=== PATIENT | female | born 1980 | race Caucasian/White ===

== ENCOUNTER 2017-05-31 19:04 | Inpatient (IN) | payer BC ==
[2017-05-31] MEDS ORDERED: Ondansetron 4 MG/2 ML SDV IV ONE (19:19)
[2017-05-31] MEDS ORDERED: Sodium Chloride 0.9% 1,000 ML IV ONE (19:19)
--- NOTE | 2017-05-31 19:36 | EDM.PDOC ---
ED HPI GENERAL MEDICAL PROBLEM - General Chief Complaint: General Stated Complaint: CELULITTUS, DEHYDRATED Time Seen by Provider: 05/31/17 19:20 Source of Information: Reports: Patient History Limitations: Reports: No Limitations - History of Present Illness INITIAL COMMENTS - FREE TEXT/NARRATIVE: This 37 yo female patient reports to the ED with cellulitis on her buttocks and 2 days of nausea. The patient has a history of cellulitis in her lower extremities (normally treated with IV Vanco). The patient started to notice the cellulitis yesterday. The patient started feeling nauseated on Thursday and has not been able to eat or drink much. The patient reports she ate a piece of toast today and has been eating popsicles over the weekend. The patient has not taken anything that improved her symptoms. Onset: Gradual Onset Date: 05/29/17 Duration: Day(s):, Constant Location: Reports: Lower Extremity, Left, Lower Extremity, Right, Other Quality: Reports: Ache, Dull Severity: Moderate Improves with: Reports: None Worsens with: Reports: None Associated Symptoms: Reports: No Other Symptoms - Related Data Allergies Allergy/AdvReac Type Severity Reaction Status Date / Time adhesive Allergy Intermediate Hives Verified 05/31/17 19:18 hydrocodone Allergy Mild Nausea and Verified 05/31/17 19:18 Vomiting cephalexin monohydrate Allergy Hives Verified 05/31/17 19:18 [From Keflex] erythromycin base AdvReac Severe Nausea and Verified 05/31/17 19:18 [Erythromycin Base] Vomiting Home Meds: Home Meds Acetaminophen 1,000 mg PO Q12HR PRN 01/11/15 [History] Furosemide [Lasix] 40 mg PO DAILY 01/11/15 [History] Spironolactone 50 mg PO BID 02/12/16 [History] Venlafaxine [Effexor XR] 37.5 mg PO DAILY 02/12/16 [History] diphenhydrAMINE [Benadryl] 25 mg PO Q6HR PRN 04/09/16 [History] Ergocalciferol (Vitamin D2) [Vitamin D2] 50,000 units PO .[id number] 10/22/16 [ History] Past Medical History HEENT History: Reports: Impaired Vision Cardiovascular History: Reports: Blood Clots/VTE/DVT, Hypertension, Other (See Below) Other Cardiovascular History: edema BLE Respiratory History: Reports: Sleep Apnea Gastrointestinal History: Reports: Cirrhosis, Other (See Below) Other Gastrointestinal History: Non-alcoholic fatty liver disease, PORTAL HYPERTENSION Genitourinary History: Reports: Acute Renal Failure WOODS BOSS History: Reports: Endometriosis, Other (See Below) Other OB/BYN History: PRE CANCEROUS CERVICAL CELLS, RESULTED IN PARTIAL HYSTERECTOMY Musculoskeletal History: Reports: None Neurological History: Reports: None Psychiatric History: Reports: Anxiety, Depression Endocrine/Metabolic History: Reports: Obesity/BMI 30+ Hematologic History: Reports: B12 Deficiency, Blood Transfusion(s), Idiopathic Thrombocytopenia, Other (See Below) Other Hematologic History: VIT D DEFICIENCY,low platlets count Immunologic History: Reports: None Oncologic (Cancer) History: Reports: Other (See Below) Other Oncologic History: PRECANCEROUS CELLS UTERINE Dermatologic History: Reports: Chronic Cellulitis, Psoriasis Other Dermatologic History: RLE CELLULITIS - Infectious Disease History Infectious Disease History: Reports: Chicken Pox - Past Surgical History GI Surgical History: Reports: Bariatric Procedure, Colonoscopy, EGD Oncologic Surgical History: Reports: Other (See Below) Social & Family History - Family History Family Medical History: Noncontributory Cardiac: Respiratory: GI: Reports: Other (See Below) Neurological: Psychiatric: Hematologic: - Tobacco Use Smoking Status *Q: Never Smoker Years of Tobacco use: 1 Packs/Tins Daily: 0.1 Used Tobacco, but Quit: No Second Hand Smoke Exposure: No - Caffeine Use Caffeine Use: Reports: None - Alcohol Use Days Per Week of Alcohol Use: 0 - Recreational Drug Use Recreational Drug Use: No Drug Use in Last 12 Months: No ED ROS GENERAL - Review of Systems Review Of Systems: ROS reveals no pertinent complaints other than HPI. ED EXAM, GENERAL - Physical Exam Exam: See Below Exam Limited By: No Limitations General Appearance: Alert, Moderate Distress, Obese (morbid obesity) Eye Exam: Bilateral Eye: EOMI, Normal Inspection, PERRL Ears: Normal External Exam, Normal Canal, Hearing Grossly Normal, Normal TMs Nose: Normal Inspection, Normal Mucosa, No Blood Throat/Mouth: Normal Inspection, Normal Lips, Normal Teeth, Normal Gums, Normal Oropharynx, Normal Voice, No Airway Compromise Head: Atraumatic, Normocephalic Neck: Normal Inspection, Supple, Non-Tender, Full Range of Motion Respiratory/Chest: No Respiratory Distress, Lungs Clear, Normal Breath Sounds, No Accessory Muscle Use, Chest Non-Tender Cardiovascular: Normal Peripheral Pulses, Regular Rate, Rhythm, No Edema, No Gallop, No JVD, No Murmur, No Rub GI/Abdominal: Normal Bowel Sounds, Soft, Non-Tender, No Organomegaly, No Distention, No Abnormal Bruit, No Mass, Pelvis Stable (Female) Exam: Deferred Rectal (Female) Exam: Deferred Back Exam: Normal Inspection, Full Range of Motion, NT Extremities: Increased Warmth (bilateral buttocks), Redness Neurological: Alert, Oriented, CN II-XII Intact, Normal Cognition, Normal Gait, Normal Reflexes, No Motor/Sensory Deficits Psychiatric: Normal Affect, Normal Mood Skin Exam: Erythema, Increased Warmth, Rash Lymphatic: No Adenopathy Course - Vital Signs Last Recorded V/S: Last Vital Signs Temp 37.2 C 05/31/17 19:19 Pulse 101 H 05/31/17 19:19 Resp 18 05/31/17 19:19 BP 162/80 H 05/31/17 19:19 Pulse Ox 96 05/31/17 19:19 - Orders/Labs/Meds Orders: Active Orders 24 hr Category Date Time Status CULTURE BLOOD [BC] Stat Lab 05/31/17 19:25 Received CULTURE BLOOD [BC] Stat Lab 05/31/17 19:28 Results UA W/MICROSCOPIC [URIN] Stat Lab 05/31/17 19:18 Uncollected Sodium Chloride 0.9% [Normal Saline] 1,000 ml Med 05/31/17 19:19 Active IV .BOLUS Vancomycin 2 gm Med 05/31/17 20:00 Active Sodium Chloride 0.9% [Normal Saline] 500 ml IV ONETIME Blood Culture x2 Reflex Set [OM.PC] Stat Oth 05/31/17 19:18 Ordered Medication Orders Sodium Chloride (Normal Saline) 1,000 mls @ 999 mls/hr IV .BOLUS ONE Stop: 05/31/17 20:19 Last Admin: 05/31/17 19:33 Dose: 999 mls/hr Vancomycin HCl 2 gm/ Sodium (Chloride) 500 mls @ 334 mls/hr IV ONETIME ONE Stop: 05/31/17 21:29 Labs: Laboratory Tests 05/31/17 05/31/17 05/31/17 Range/Units 19:25 19:25 19:25 WBC 6.7 (5.0-10.0) 10^3/uL RBC 4.41 (4.2-5.4) 10^6/uL Hgb 14.7 (12.0-16.0) g/dL Hct 40.7 (37.0-47.0) % MCV 92.3 (80-100) fL MCH 33.3 (27.0-34.0) pg MCHC 36.1 H (33.0-35.0) g/dL Plt Count 26 L* (150-450) 10^3/uL Neut % (Auto) 82.9 H (42.2-75.2) % Lymph % (Auto) 5.3 L (20.5-50.1) % [place] % (Auto) 11.4 H (2-8) % Eos % (Auto) 0.2 L (1.0-3.0) % Baso % (Auto) 0.2 (0.0-1.0) % Sodium 131 L (135-145) mmol/L Potassium 3.4 L (3.6-5.0) mmol/L Chloride 98 L (101-111) mmol/L Carbon Dioxide 24.0 (21.0-31.0) mmol/L Anion Gap 12.4 BUN 8 (7-18) mg/dL Creatinine 0.7 (0.6-1.3) mg/dL Est Cr Clr Drug Dosing TNP Estimated GFR (MDRD) > 60 BUN/Creatinine Ratio 11.42 Glucose 187 H (74-105) mg/dL Lactic Acid 2.8 H (0.5-2.2) mmol/L Calcium 9.3 (8.4-10.2) mg/dl Total Bilirubin 4.2 H (0.2-1.0) mg/dL AST 47 H (10-42) IU/L ALT 27 (10-60) IU/L Alkaline Phosphatase 79 (42-121) IU/L Total Protein 6.4 L (6.7-8.2) g/dl Albumin 3.0 L (3.2-5.5) g/dl Globulin 3.4 Albumin/Globulin Ratio 0.88 Meds: Medications Generic Name Dose Route Start Last Admin Trade Name Freq PRN Reason Stop Dose Admin Sodium Chloride 1,000 mls @ 999 mls/hr 05/31/17 19:19 05/31/17 19:33 Normal Saline IV 05/31/17 20:19 999 mls/hr .BOLUS ONE Administration Vancomycin HCl 2 gm/ Sodium 500 mls @ 334 mls/hr 05/31/17 20:00 Chloride IV 05/31/17 21:29 ONETIME ONE Discontinued Medications Generic Name Dose Route Start Last Admin Trade Name Sravanq PRN Reason Stop Dose Admin Ondansetron HCl 4 mg 05/31/17 19:19 05/31/17 19:33 Zofran IV 05/31/17 19:20 4 mg ONETIME ONE Administration Departure - Departure Time of Disposition: 20:09 Disposition: Admitted As Inpatient 65 Condition: Fair Clinical Impression: Cellulitis of buttock - Discharge Information Care Plan Goals: Discussed the examination, history, labs and current treatments with Dr. Joaquin. Dr. Joaquin accepted the patient for continued evaluation and further management as an inpatient at [facility]. - My Orders Last 24 Hours: My Active Orders 05/31/17 19:18 UA W/MICROSCOPIC [URIN] Stat Blood Culture x2 Reflex Set [OM.PC] Stat 05/31/17 19:19 Sodium Chloride 0.9% [Normal Saline] 1,000 ml IV .BOLUS 05/31/17 19:25 CULTURE BLOOD [BC] Stat 05/31/17 19:28 CULTURE BLOOD [BC] Stat 05/31/17 20:00 Vancomycin 2 gm Sodium Chloride 0.9% [Normal Saline] 500 ml IV ONETIME - Assessment/Plan Last 24 Hours: My Active Orders 05/31/17 19:18 UA W/MICROSCOPIC [URIN] Stat Blood Culture x2 Reflex Set [OM.PC] Stat 05/31/17 19:19 Sodium Chloride 0.9% [Normal Saline] 1,000 ml IV .BOLUS 05/31/17 19:25 CULTURE BLOOD [BC] Stat 05/31/17 19:28 CULTURE BLOOD [BC] Stat 05/31/17 20:00 Vancomycin 2 gm Sodium Chloride 0.9% [Normal Saline] 500 ml IV ONETIME
[2017-05-31 19:53] LABS: CHLORIDE,CL 98 mmol/L (101-111); SODIUM,NA 131 mmol/L (135-145)
[2017-05-31] MEDS ORDERED: Vancomycin 2 GM in Sodium Chloride 0.9% 500 ML IV ONE (20:00)
[2017-05-31] MEDS ORDERED: Potassium Chloride 10 MEQ Tab.ER PO ONE (20:40)
[2017-05-31] MEDS ORDERED: Ondansetron 4 MG Tab.DIS PO PRN (20:47)
[2017-05-31] MEDS ORDERED: Ibuprofen 200 MG Tab PO PRN ×2 (20:47→20:51)
[2017-05-31] MEDS ORDERED: Acetaminophen 325 MG Tab PO PRN (20:47)
[2017-05-31] MEDS ORDERED: Promethazine 25 MG Tab PO PRN (20:51)
[2017-05-31] MEDS ORDERED: Metoclopramide 10 MG/2 ML SDV IVPUSH PRN (20:52)
--- NOTE | 2017-05-31 20:58 | PCM.HP ---
H&P History of Present Illness - General Date of Service: 05/31/17 Admit Problem/Dx: Admission Diagnosis/Problem Admission Diagnosis/Problem Cellulitis Source of Information: Patient - History of Present Illness Initial Comments - Free Text/Narative: 37 yo female with h/o morbid oesty, s/p Lapband, BARNES, thrombocytopenia and leukopenia. she has a history of recurrent cellulitis that has been difficult to treat in the past. The treatment required clindamycin and vancomycin initially administered as IV. She presented with 1 day history of nausea, up to 102-103. She noticed warmth and mild to moderate tenderness on the buttock and lower back area. She cannot recall a significant injury. The fever has been associated with nausea. No apparent bleeding. She has been taking diuretics. She has poor appetite in the past 2 days. No abnormal diarrhea, no abdominal pain. No chest pain or shortness of breath. Bilateral Sacral Pain Score (Numeric/FACES): 5 - Related Data Allergies/Adverse Reactions: Allergies Allergy/AdvReac Type Severity Reaction Status Date / Time adhesive Allergy Intermediate Hives Verified 05/31/17 19:18 hydrocodone Allergy Mild Nausea and Verified 05/31/17 19:18 Vomiting cephalexin monohydrate Allergy Hives Verified 05/31/17 19:18 [From Keflex] erythromycin base AdvReac Severe Nausea and Verified 05/31/17 19:18 [Erythromycin Base] Vomiting Home Medications: Home Meds Furosemide [Lasix] 40 mg PO DAILY 01/11/15 [History] Spironolactone 50 mg PO BID 02/12/16 [History] Venlafaxine [Effexor XR] 37.5 mg PO DAILY 02/12/16 [History] Past Medical History HEENT History: Reports: Impaired Vision Cardiovascular History: Reports: Blood Clots/VTE/DVT, Hypertension, Other (See Below) Other Cardiovascular History: edema BLE Respiratory History: Reports: Sleep Apnea Gastrointestinal History: Reports: Cirrhosis, Other (See Below) Other Gastrointestinal History: Non-alcoholic fatty liver disease, PORTAL HYPERTENSION Genitourinary History: Reports: Acute Renal Failure DIE FITTER History: Reports: Endometriosis, Other (See Below) Other OB/BYN History: PRE CANCEROUS CERVICAL CELLS, RESULTED IN PARTIAL HYSTERECTOMY Musculoskeletal History: Reports: None Neurological History: Reports: None Psychiatric History: Reports: Anxiety, Depression Endocrine/Metabolic History: Reports: Obesity/BMI 30+ Hematologic History: Reports: B12 Deficiency, Blood Transfusion(s), Idiopathic Thrombocytopenia, Other (See Below) Other Hematologic History: VIT D DEFICIENCY,low platlets count Immunologic History: Reports: None Oncologic (Cancer) History: Reports: Other (See Below) Other Oncologic History: PRECANCEROUS CELLS UTERINE Dermatologic History: Reports: Chronic Cellulitis, Psoriasis Other Dermatologic History: RLE CELLULITIS - Infectious Disease History Infectious Disease History: Reports: Chicken Pox - Past Surgical History GI Surgical History: Reports: Bariatric Procedure, Colonoscopy, EGD Oncologic Surgical History: Reports: Other (See Below) Social & Family History - Family History Family Medical History: Noncontributory Cardiac: Respiratory: GI: Reports: Other (See Below) Neurological: Psychiatric: Hematologic: - Tobacco Use Smoking Status *Q: Never Smoker Years of Tobacco use: 1 Packs/Tins Daily: 0.1 Used Tobacco, but Quit: No Second Hand Smoke Exposure: No - Caffeine Use Caffeine Use: Reports: None - Alcohol Use Days Per Week of Alcohol Use: 0 - Recreational Drug Use Recreational Drug Use: No Drug Use in Last 12 Months: No H&P Review of Systems - Review of Systems: Review Of Systems: See Below General: Reports: Fever, Chills HEENT: Denies: Headaches Pulmonary: Denies: Shortness of Breath, Wheezing Cardiovascular: Denies: Chest Pain, Palpitations Gastrointestinal: Denies: Abdominal Pain, Diarrhea Genitourinary: Denies: Dysuria Psychiatric: Denies: Confusion Exam - Exam Exam: See Below - Vital Signs Vital Signs: Last Vital Signs Temp 37.2 C 05/31/17 19:19 Pulse 101 H 05/31/17 19:19 Resp 18 05/31/17 19:19 BP 162/80 H 05/31/17 19:19 Pulse Ox 96 05/31/17 19:19 Weight: 158.757 kg - Exam Quality Assessment: No: Supplemental Oxygen General: Alert, Oriented Neck: Supple Lungs: Clear to Auscultation, Normal Respiratory Effort Cardiovascular: Regular Rate, Regular Rhythm Abdomen: Normal Bowel Sounds, Soft, Other (Morbidly obese) Skin: Warm, Other (Significant erythema of bilateral buttock and lower back with induration. No apparent abscess.) Neuro Extensive - Mental Status: Alert, Oriented x3, Normal Mood/Affect Psychiatric: Alert, Normal Affect, Normal Mood - Patient Data Result Diagrams: 05/31/17 19:25 05/31/17 19:25 *Q Meaningful Use (ADM) - VTE *Q VTE Criteria *Q: - Stroke *Q Stroke Criteria *Q: - AMI *Q AMI Criteria *Q: - Problem List (1) Cellulitis of buttock SNOMED Code(s): 84741768 ICD Code: L03.317 - CELLULITIS OF BUTTOCK Status: Acute Current Visit: Yes (2) Thrombocytopenia SNOMED Code(s): 648657888 ICD Code: D69.6 - THROMBOCYTOPENIA, UNSPECIFIED Status: Acute Current Visit: No (3) Morbid obesity SNOMED Code(s): 207744644 ICD Code: E66.01 - MORBID (SEVERE) OBESITY DUE TO EXCESS CALORIES Status: Chronic Priority: Medium Current Visit: No Problem List Initiated/Reviewed/Updated: Yes Orders Last 24hrs: Active Orders 24 hr Category Date Time Status Patient Status [ADT] Routine ADT 05/31/17 20:47 Ordered Antiembolic Devices [RC] PER UNIT ROUTINE Care 05/31/17 20:48 Ordered Blood Glucose Check, Bedside [RC] QIDACANDBED Care 05/31/17 20:47 Ordered Oxygen Therapy [RC] PRN Care 05/31/17 20:47 Ordered Peripheral IV Care [RC] . DIRECTED Care 05/31/17 20:48 Ordered Up With Assistance [RC] ASDIRECTED Care 05/31/17 20:47 Ordered VTE/DVT Education [RC] PER UNIT ROUTINE Care 05/31/17 20:47 Ordered Vital Signs [RC] Q4H Care 05/31/17 20:47 Ordered Consistent Carbohydrate Diet [DIET] Diet 05/31/17 Breakfast Ordered BASIC METABOLIC PANEL,BMP [CHEM] AM Lab 06/01/17 05:15 Ordered CBC WITH AUTO DIFF [HEME] AM Lab 06/01/17 05:15 Ordered LACTIC ACID [CHEM] Timed Lab 05/31/17 23:00 Ordered Acetaminophen [Tylenol] Med 05/31/17 20:47 Ordered 650 mg PO Q6H PRN Clindamycin Phosphate [Cleocin] 600 mg Med 05/31/17 20:45 Ordered Sodium Chloride 0.9% [Normal Saline] 100 ml IV Q8H Furosemide [Lasix] Med 06/01/17 09:00 Ordered 40 mg PO DAILY Ibuprofen [Motrin] Med 05/31/17 20:51 Ordered 400 mg PO Q6H PRN Insulin Aspart [NovoLOG] Med 05/31/17 21:00 Ordered See Protocol SUBCUT .QIDHS Metoclopramide [Reglan] Med 05/31/17 20:52 Ordered 10 mg IVPUSH Q6H PRN Ondansetron [Zofran ODT] Med 05/31/17 20:47 Ordered 4 mg PO Q4H PRN Pantoprazole [ProTONIX] Med 05/31/17 21:00 Ordered 40 mg PO BEDTIME Promethazine [Phenergan] Med 05/31/17 20:51 Ordered 25 mg PO Q6H PRN Sodium Chloride 0.9% [Normal Saline] 1,000 ml Med 05/31/17 20:45 Ordered IV ASDIRECTED Sodium Chloride 0.9% [Saline Flush] Med 05/31/17 20:47 Ordered 10 ml FLUSH ASDIRECTED PRN Spironolactone [Aldactone] Med 06/01/17 09:00 Ordered 50 mg PO BID Vancomycin Pharmacy to Dose [Pharmacy to Dose - Med 05/31/17 20:45 Ordered Vancomycin] 1 dose .XX ASDIRECTED Venlafaxine [Effexor XR] Med 06/01/17 09:00 Ordered 37.5 mg PO DAILY oxyCODONE Med 05/31/17 20:47 Ordered 5 mg PO Q4H PRN Peripheral IV Insertion Adult [OM.PC] Routine Oth 05/31/17 20:47 Ordered Sequential Compression Device [OM.PC] Per Unit Routine Oth 05/31/17 20:48 Ordered Resuscitation Status Routine Resus Stat 05/31/17 20:47 Ordered Medication Orders Acetaminophen (Tylenol) 650 mg PO Q6H PRN PRN Reason: Pain (Mild 1-3)/fever Furosemide (Lasix) 40 mg PO DAILY ALEXANDRA Vancomycin HCl 2 gm/ Sodium (Chloride) 500 mls @ 334 mls/hr IV ONETIME ONE Stop: 05/31/17 21:29 Last Admin: 05/31/17 20:14 Dose: 334 mls/hr Sodium Chloride (Normal Saline) 1,000 mls @ 150 mls/hr IV ASDIRECTED ALEXANDRA Clindamycin Phosphate 600 mg/ (Sodium Chloride) 104 mls @ 200 mls/hr IV Q8H ALEXANDRA Ibuprofen (Motrin) 400 mg PO Q6H PRN PRN Reason: Fever Ondansetron HCl (Zofran Odt) 4 mg PO Q4H PRN PRN Reason: nausea, able to take PO Oxycodone HCl (Oxycodone) 5 mg PO Q4H PRN PRN Reason: Pain (moderate 4-6) Pantoprazole Sodium (Protonix) 40 mg PO BEDTIME [facility] Sodium Chloride (Saline Flush) 10 ml FLUSH ASDIRECTED PRN PRN Reason: Keep Vein Open Spironolactone (Aldactone) 50 mg PO BID [facility] Vancomycin HCl (Pharmacy To Dose - Vancomycin) 1 dose .XX ASDIRECTED ALEXANDRA Venlafaxine HCl (Effexor Xr) 37.5 mg PO DAILY [facility] Assessment/Plan Comment:: 37-year-old lady who is immunocompromised. History of BARNES, thrombocytopenia and leukopenia. cellulitis The patient has history of cellulitis not responding to oral antibiotic. Usually gets good results with clindamycin and IV vancomycin combination. Obtain blood cultures Start IV fluid Start IV clindamycin and IV vancomycin After be conservative with Tylenol and nonsteroidals. Start Protonix for GI prophylaxis with the use of nonsteroidals and thrombocytopenia. Treat nausea and vomiting. Sepsis No severe sepsis, hemodynamically stable. Repeat lactic acid Treat with IV fluids. Hold diuretics today. BARNES with associated thrombocytopenia / leukopenia -baseline plates per pt are int the 30-40 range - Follow platelets in am - cont spironolactone / lasix Morbid Obesity h/o lap band in 2005 increased risk of infections Hyponatremia Mild, will follow with IV fluids Hypokalemia Continue spironolactone and give a dose of by mouth potassium supplement today Hyperglycemia No history of diabetes but has a history of morbid obesity Will follow blood sugars Will need outpatient follow-up DVT prophylaxis We'll be with SCDs Hold anticoagulants given the significant thrombocytopenia Discussed with the ER provider.
[2017-05-31] MEDS ORDERED: Spironolactone 25 MG Tab PO SCH (21:00)
[2017-05-31] MEDS: Pantoprazole 40 MG Tab.CR PO SCH (21:28)
[2017-05-31] MEDS: Insulin Aspart 100 Units/ML 3 ML Pen SUBCUT SCH (21:29)
[2017-05-31] MEDS: Clindamycin Phosphate 600 MG in Sodium Chloride 0.9% 100 ML IV SCH (22:51)
[2017-05-31] MEDS: Sodium Chloride 0.9% 1,000 ML IV SCH (23:41)
[2017-06-01] MEDS: Clindamycin Phosphate 600 MG in Sodium Chloride 0.9% 100 ML IV SCH ×4 (05:22→20:48)
[2017-06-01] MEDS: Vancomycin 1.5 GM in Sodium Chloride 0.9% 500 ML IV SCH ×4 (06:17→22:08)
[2017-06-01 06:56] LABS: CHLORIDE,CL 104 mmol/L (101-111); SODIUM,NA 135 mmol/L (135-145)
[2017-06-01] MEDS: Sodium Chloride 0.9% 1,000 ML IV SCH (07:49)
[2017-06-01] MEDS: Insulin Aspart 100 Units/ML 3 ML Pen SUBCUT SCH ×4 (08:04→21:56)
[2017-06-01] MEDS: Spironolactone 25 MG Tab PO SCH ×2 (08:33→20:52)
[2017-06-01] MEDS: VENLAFAXINE 37.5 MG PO SCH (08:34)
[2017-06-01] MEDS: FUROSEMIDE 20 MG PO SCH (08:34)
[2017-06-01] MEDS ORDERED: Potassium Chloride 10 MEQ Tab.ER PO ONE (09:39)
--- NOTE | 2017-06-01 09:39 | PCM.PN ---
- General Info Date of Service: 06/01/17 Admission Dx/Problem (Free Text): Admission Diagnosis/Problem Admission Diagnosis/Problem Cellulitis Subjective Update: Had fever last night. Improved with Motrin. Redness associated which itching on the back is continued. Feeling nausea but was able to eat breakfast. 1 watery bowel movement. No chest pain, no shortness of breath. Does not like to wear SCDs. - Patient Data Vitals - most recent: Last Vital Signs Temp 36.4 C 06/01/17 07:42 Pulse 91 06/01/17 07:42 Resp 20 06/01/17 07:42 BP 127/80 06/01/17 07:42 Pulse Ox 99 06/01/17 07:42 Weight - most recent: 158.757 kg I&O - last 24 hours: Intake & Output 05/31/17 06/01/17 06/01/17 22:59 06:59 14:59 Intake Total 400 2700 Balance 400 2700 Lab Results last 24 hrs: Laboratory Results - last 24 hr 05/31/17 05/31/17 06/01/17 Range/Units 21:25 23:45 06:15 WBC 7.1 (5.0-10.0) 10^3/uL RBC 4.59 (4.2-5.4) 10^6/uL Hgb 15.1 (12.0-16.0) g/dL Hct 42.5 (37.0-47.0) % MCV 92.6 (80-100) fL MCH 32.9 (27.0-34.0) pg MCHC 35.5 H (33.0-35.0) g/dL Plt Count 28 L* (150-450) 10^3/uL Neut % (Auto) 82.6 H (42.2-75.2) % Lymph % (Auto) 4.7 L (20.5-50.1) % [place] % (Auto) 12.6 H (2-8) % Eos % (Auto) 0.0 L (1.0-3.0) % Baso % (Auto) 0.1 (0.0-1.0) % Sodium (135-145) mmol/L Potassium (3.6-5.0) mmol/L Chloride (101-111) mmol/L Carbon Dioxide (21.0-31.0) mmol/L Anion Gap BUN (7-18) mg/dL Creatinine (0.6-1.3) mg/dL Est Cr Clr Drug Dosing Estimated GFR (MDRD) Glucose (74-105) mg/dL POC Glucose 151 H (70-105) mg/dl Lactic Acid 2.2 (0.5-2.2) mmol/L Calcium (8.4-10.2) mg/dl 06/01/17 06/01/17 Range/Units 06:15 07:47 WBC (5.0-10.0) 10^3/uL RBC (4.2-5.4) 10^6/uL Hgb (12.0-16.0) g/dL Hct (37.0-47.0) % MCV (80-100) fL MCH (27.0-34.0) pg MCHC (33.0-35.0) g/dL Plt Count (150-450) 10^3/uL Neut % (Auto) (42.2-75.2) % Lymph % (Auto) (20.5-50.1) % [place] % (Auto) (2-8) % Eos % (Auto) (1.0-3.0) % Baso % (Auto) (0.0-1.0) % Sodium 135 (135-145) mmol/L Potassium 3.4 L (3.6-5.0) mmol/L Chloride 104 (101-111) mmol/L Carbon Dioxide 24.0 (21.0-31.0) mmol/L Anion Gap 10.4 BUN 11 (7-18) mg/dL Creatinine 0.8 (0.6-1.3) mg/dL Est Cr Clr Drug Dosing TNP Estimated GFR (MDRD) > 60 Glucose 143 H (74-105) mg/dL POC Glucose 122 H (70-105) mg/dl Lactic Acid (0.5-2.2) mmol/L Calcium 9.4 (8.4-10.2) mg/dl Med Orders - Current: Current Medications Acetaminophen (Tylenol) 650 mg PO Q6H PRN PRN Reason: Pain (Mild 1-3)/fever Furosemide (Lasix) 40 mg PO DAILY [facility] Last Admin: 06/01/17 08:34 Dose: 40 mg Sodium Chloride (Normal Saline) 1,000 mls @ 150 mls/hr IV ASDIRECTED [facility] Last Admin: 06/01/17 07:49 Dose: 150 mls/hr Clindamycin Phosphate 600 mg/ (Sodium Chloride) 104 mls @ 200 mls/hr IV Q8H [facility] Last Admin: 06/01/17 05:22 Dose: 200 mls/hr Vancomycin HCl 1.5 gm/ Sodium (Chloride) 500 mls @ 333.333 mls/hr IV Q8H [facility] Last Admin: 06/01/17 06:17 Dose: 200 mls/hr Ibuprofen (Motrin) 400 mg PO Q6H PRN PRN Reason: Fever Last Admin: 05/31/17 23:01 Dose: 400 mg Insulin Aspart (Novolog) 0 unit SUBCUT ACBED [facility] PRN Reason: Protocol Last Admin: 06/01/17 08:04 Dose: Not Given Metoclopramide HCl (Reglan) 10 mg IVPUSH Q6H PRN PRN Reason: Nausea Ondansetron HCl (Zofran Odt) 4 mg PO Q4H PRN PRN Reason: nausea, able to take PO Oxycodone HCl (Oxycodone) 5 mg PO Q4H PRN PRN Reason: Pain (moderate 4-6) Pantoprazole Sodium (Protonix) 40 mg PO BEDTIME [facility] Last Admin: 05/31/17 21:28 Dose: 40 mg Promethazine HCl (Phenergan) 25 mg PO Q6H PRN PRN Reason: Nausea/Vomiting Sodium Chloride (Saline Flush) 10 ml FLUSH ASDIRECTED PRN PRN Reason: Keep Vein Open Spironolactone (Aldactone) 50 mg PO BID [facility] Last Admin: 06/01/17 08:33 Dose: 50 mg Vancomycin HCl (Pharmacy To Dose - Vancomycin) 1 dose .XX ASDIRECTED [facility] Venlafaxine HCl (Effexor Xr) 37.5 mg PO DAILY [facility] Last Admin: 06/01/17 08:34 Dose: 37.5 mg Discontinued Medications Sodium Chloride (Normal Saline) 1,000 mls @ 999 mls/hr IV .BOLUS ONE Stop: 05/31/17 20:19 Last Admin: 05/31/17 19:33 Dose: 999 mls/hr Vancomycin HCl 2 gm/ Sodium (Chloride) 500 mls @ 334 mls/hr IV ONETIME ONE Stop: 05/31/17 21:29 Last Admin: 05/31/17 20:14 Dose: 334 mls/hr Ibuprofen (Motrin) 200 mg PO Q6H PRN PRN Reason: Fever Ondansetron HCl (Zofran) 4 mg IV ONETIME ONE Stop: 05/31/17 19:20 Last Admin: 05/31/17 19:33 Dose: 4 mg Potassium Chloride (Klor-Con 10) 10 meq PO ONETIME ONE Stop: 05/31/17 20:41 Last Admin: 05/31/17 21:27 Dose: 10 meq Spironolactone (Aldactone) 50 mg PO BID [facility]DR[facility] - Exam Quality Assessment: No: supplemental oxygen General: alert, oriented HEENT: Pupils equal, EOMI, Mucous membr. moist/pink Neck: supple Lungs: Clear to auscultation, Normal respiratory effort Cardiovascular: Regular Rate, Regular Rhythm Abdomen: bowel sounds present, soft, no tenderness, no distension, other ( Morbidly obese) Extremities: edema (Trace bilateral lower extremity edema) Skin: warm Wound/Incisions: erythema (Involving bilateral buttock sacral area and lower back) Psy/Mental Status: alert, normal affect - Problem List & Annotations (1) Cellulitis of buttock SNOMED Code(s): 71374148 Code(s): L03.317 - CELLULITIS OF BUTTOCK Status: Acute Current Visit: Yes (2) Thrombocytopenia SNOMED Code(s): 158429477 Code(s): D69.6 - THROMBOCYTOPENIA, UNSPECIFIED Status: Acute Current Visit: No (3) Morbid obesity SNOMED Code(s): 671422660 Code(s): E66.01 - MORBID (SEVERE) OBESITY DUE TO EXCESS CALORIES Status: Chronic Priority: Medium Current Visit: No - Problem List Review Problem List Initiated/Reviewed/Updated: Yes - My Orders Last 24 Hours: My Active Orders 05/31/17 20:45 Sodium Chloride 0.9% [Normal Saline] 1,000 ml IV ASDIRECTED Vancomycin Pharmacy to Dose [Pharmacy to Dose - Vancomycin] 1 dose .XX ASDIRECTED 05/31/17 20:47 Patient Status [ADT] Routine Blood Glucose Check, Bedside [RC] QIDACANDBED Oxygen Therapy [RC] PRN Up With Assistance [RC] ASDIRECTED VTE/DVT Education [RC] PER UNIT ROUTINE Vital Signs [RC] 03,07,11,15,19,23 Acetaminophen [Tylenol] 650 mg PO Q6H PRN Ondansetron [Zofran ODT] 4 mg PO Q4H PRN Sodium Chloride 0.9% [Saline Flush] 10 ml FLUSH ASDIRECTED PRN oxyCODONE 5 mg PO Q4H PRN Peripheral IV Insertion Adult [OM.PC] Routine Resuscitation Status Routine 05/31/17 20:48 Antiembolic Devices [RC] PER UNIT ROUTINE Peripheral IV Care [RC] . DIRECTED Sequential Compression Device [OM.PC] Per Unit Routine 05/31/17 20:51 Ibuprofen [Motrin] 400 mg PO Q6H PRN Promethazine [Phenergan] 25 mg PO Q6H PRN 05/31/17 20:52 Metoclopramide [Reglan] 10 mg IVPUSH Q6H PRN 05/31/17 21:00 Clindamycin Phosphate [Cleocin] 600 mg Sodium Chloride 0.9% [Normal Saline] 100 ml IV Q8H Insulin Aspart [NovoLOG] See Protocol SUBCUT ACBED Pantoprazole [ProTONIX] 40 mg PO BEDTIME 06/01/17 05:00 Vancomycin 1.5 gm Sodium Chloride 0.9% [Normal Saline] 500 ml IV Q8H 06/01/17 09:00 Furosemide [Lasix] 40 mg PO DAILY Spironolactone [Aldactone] 50 mg PO BID Venlafaxine [Effexor XR] 37.5 mg PO DAILY 06/02/17 04:30 VANCOMYCIN TROUGH [CHEM] Timed 06/02/17 05:15 BASIC METABOLIC PANEL,BMP [CHEM] AM CBC WITH AUTO DIFF [HEME] AM - Plan Plan:: 37-year-old lady who is immunocompromised. History of BARNES, thrombocytopenia and leukopenia. cellulitis The patient has history of cellulitis not responding to oral antibiotic. Usually gets good results with clindamycin and IV vancomycin combination. blood cultures: pending stop IV fluid continue IV clindamycin and IV vancomycin Have to be conservative with Tylenol and nonsteroidals. continue Protonix for GI prophylaxis with the use of nonsteroidals and thrombocytopenia. Treat nausea and vomiting. Sepsis No severe sepsis, hemodynamically stable. Repeat lactic acid resolved BARNES with associated thrombocytopenia / leukopenia -baseline plates are in the 30-40 range - Follow platelets in am - cont spironolactone / lasix Morbid Obesity h/o lap band in 2005 increased risk of infections Hyponatremia recheck in AM Hypokalemia Continue spironolactone and give one more dose of by mouth potassium supplement today Hyperglycemia No history of diabetes but has a history of morbid obesity Will follow blood sugars Will need outpatient follow-up DVT prophylaxis Will be with compression stocking Hold anticoagulants given the significant thrombocytopenia
[2017-06-01] MEDS: Sodium Chloride 0.9% 10 ML Syringe FLUSH PRN ×2 (14:40→20:56)
[2017-06-01] MEDS: Pantoprazole 40 MG Tab.CR PO SCH (20:53)
[2017-06-02] MEDS: Clindamycin Phosphate 600 MG in Sodium Chloride 0.9% 100 ML IV SCH ×3 (05:18→20:57)
[2017-06-02] MEDS: Sodium Chloride 0.9% 10 ML Syringe FLUSH PRN ×4 (05:19→22:06)
[2017-06-02 07:01] LABS: CHLORIDE,CL 103 mmol/L (101-111); SODIUM,NA 136 mmol/L (135-145)
[2017-06-02] MEDS: Vancomycin 1.5 GM in Sodium Chloride 0.9% 500 ML IV SCH ×3 (07:30→22:05)
[2017-06-02] MEDS: Insulin Aspart 100 Units/ML 3 ML Pen SUBCUT SCH ×4 (08:54→21:07)
[2017-06-02] MEDS: Spironolactone 25 MG Tab PO SCH ×2 (09:10→09:13)
[2017-06-02] MEDS: FUROSEMIDE 20 MG PO SCH ×2 (09:10→09:13)
[2017-06-02] MEDS: VENLAFAXINE 37.5 MG PO SCH ×2 (09:10→09:13)
--- NOTE | 2017-06-02 10:14 | PCM.PN ---
- General Info Date of Service: 06/02/17 Admission Dx/Problem (Free Text): Admission Diagnosis/Problem Admission Diagnosis/Problem Cellulitis Subjective Update: No more fever. Redness associated which itching on the back is continued but appears improved. She did feel to areas of the tenderness of the skin on both sides of the chest. This is not associated with redness, swelling, and it was above features. Nausea and vomiting has resolved. Tolerating food well. No chest pain, no shortness of breath. Functional Status: Reports: tolerating diet - Review of Systems General: Denies: Fever Pulmonary: Denies: shortness of breath Cardiovascular: Denies: Chest Pain Gastrointestinal: Denies: Abdominal pain Psychiatric: Denies: confusion - Patient Data Vitals - most recent: Last Vital Signs Temp 36.6 C 06/02/17 07:42 Pulse 92 06/02/17 07:42 Resp 20 06/02/17 07:42 BP 133/73 06/02/17 07:42 Pulse Ox 99 06/02/17 07:42 Weight - most recent: 158.757 kg I&O - last 24 hours: Intake & Output 06/01/17 06/02/17 06/02/17 22:59 06:59 14:59 Intake Total 1555 1114 Output Total 1700 175 Balance -145 939 Lab Results last 24 hrs: Laboratory Results - last 24 hr 06/01/17 06/01/17 06/01/17 Range/Units 11:32 16:51 21:15 WBC (5.0-10.0) 10^3/uL RBC (4.2-5.4) 10^6/uL Hgb (12.0-16.0) g/dL Hct (37.0-47.0) % MCV (80-100) fL MCH (27.0-34.0) pg MCHC (33.0-35.0) g/dL Plt Count (150-450) 10^3/uL Neut % (Auto) (42.2-75.2) % Lymph % (Auto) (20.5-50.1) % Carbon % (Auto) (2-8) % Eos % (Auto) (1.0-3.0) % Baso % (Auto) (0.0-1.0) % Add Manual Diff Neutrophils % (Manual) % Band Neutrophils % % Lymphocytes % (Manual) % Monocytes % (Manual) % Myelocytes % Toxic Granulation Platelet Estimate Sodium (135-145) mmol/L Potassium (3.6-5.0) mmol/L Chloride (101-111) mmol/L Carbon Dioxide (21.0-31.0) mmol/L Anion Gap BUN (7-18) mg/dL Creatinine (0.6-1.3) mg/dL Est Cr Clr Drug Dosing Estimated GFR (MDRD) Glucose (74-105) mg/dL POC Glucose 196 H 217 H 144 H (70-105) mg/dl Calcium (8.4-10.2) mg/dl Total Bilirubin (0.2-1.0) mg/dL Direct Bilirubin (0.0-0.2) mg/dL Indirect Bilirubin AST (10-42) IU/L ALT (10-60) IU/L Alkaline Phosphatase (42-121) IU/L Total Protein (6.7-8.2) g/dl Albumin (3.2-5.5) g/dl Globulin Albumin/Globulin Ratio Vancomycin Trough (10-15) ug/ml 06/02/17 06/02/17 06/02/17 Range/Units 05:50 05:50 05:50 WBC 7.6 (5.0-10.0) 10^3/uL RBC 4.61 (4.2-5.4) 10^6/uL Hgb 15.1 (12.0-16.0) g/dL Hct 42.2 (37.0-47.0) % MCV 91.5 (80-100) fL MCH 32.8 (27.0-34.0) pg MCHC 35.8 H (33.0-35.0) g/dL Plt Count 25 L* (150-450) 10^3/uL Neut % (Auto) 76.4 H (42.2-75.2) % Lymph % (Auto) 9.4 L (20.5-50.1) % Carbon % (Auto) 13.6 H (2-8) % Eos % (Auto) 0.5 L (1.0-3.0) % Baso % (Auto) 0.1 (0.0-1.0) % Add Manual Diff Yes Neutrophils % (Manual) 54 % Band Neutrophils % 19 % Lymphocytes % (Manual) 10 % Monocytes % (Manual) 15 % Myelocytes % 2 Toxic Granulation 1+ slight Platelet Estimate Marked dec Sodium 136 (135-145) mmol/L Potassium 3.2 L (3.6-5.0) mmol/L Chloride 103 (101-111) mmol/L Carbon Dioxide 23.0 (21.0-31.0) mmol/L Anion Gap 13.2 BUN 15 (7-18) mg/dL Creatinine 0.9 (0.6-1.3) mg/dL Est Cr Clr Drug Dosing TNP Estimated GFR (MDRD) > 60 Glucose 115 H (74-105) mg/dL POC Glucose (70-105) mg/dl Calcium 9.8 (8.4-10.2) mg/dl Total Bilirubin 4.3 H (0.2-1.0) mg/dL Direct Bilirubin 1.1 H (0.0-0.2) mg/dL Indirect Bilirubin 3.2 AST 48 H (10-42) IU/L ALT 27 (10-60) IU/L Alkaline Phosphatase 106 (42-121) IU/L Total Protein 6.0 L (6.7-8.2) g/dl Albumin 2.7 L (3.2-5.5) g/dl Globulin 3.3 Albumin/Globulin Ratio 0.82 Vancomycin Trough 18.7 H (10-15) ug/ml // Range/Units 07:49 WBC (5.0-10.0) 10^3/uL RBC (4.2-5.4) 10^6/uL Hgb (12.0-16.0) g/dL Hct (37.0-47.0) % MCV (80-100) fL MCH (27.0-34.0) pg MCHC (33.0-35.0) g/dL Plt Count (150-450) 10^3/uL Neut % (Auto) (42.2-75.2) % Lymph % (Auto) (20.5-50.1) % Carbon % (Auto) (2-8) % Eos % (Auto) (1.0-3.0) % Baso % (Auto) (0.0-1.0) % Add Manual Diff Neutrophils % (Manual) % Band Neutrophils % % Lymphocytes % (Manual) % Monocytes % (Manual) % Myelocytes % Toxic Granulation Platelet Estimate Sodium (135-145) mmol/L Potassium (3.6-5.0) mmol/L Chloride (101-111) mmol/L Carbon Dioxide (21.0-31.0) mmol/L Anion Gap BUN (7-18) mg/dL Creatinine (0.6-1.3) mg/dL Est Cr Clr Drug Dosing Estimated GFR (MDRD) Glucose (74-105) mg/dL POC Glucose 126 H (70-105) mg/dl Calcium (8.4-10.2) mg/dl Total Bilirubin (0.2-1.0) mg/dL Direct Bilirubin (0.0-0.2) mg/dL Indirect Bilirubin AST (10-42) IU/L ALT (10-60) IU/L Alkaline Phosphatase (42-121) IU/L Total Protein (6.7-8.2) g/dl Albumin (3.2-5.5) g/dl Globulin Albumin/Globulin Ratio Vancomycin Trough (10-15) ug/ml Med Orders - Current: Current Medications Acetaminophen (Tylenol) 650 mg PO Q6H PRN PRN Reason: Pain (Mild 1-3)/fever Last Admin: 06/01/17 20:55 Dose: 650 mg Furosemide (Lasix) 40 mg PO DAILY [facility] Last Admin: 06/02/17 09:13 Dose: 40 mg Clindamycin Phosphate 600 mg/ (Sodium Chloride) 104 mls @ 200 mls/hr IV Q8H [facility] Last Admin: 06/02/17 05:18 Dose: 200 mls/hr Vancomycin HCl 1.5 gm/ Sodium (Chloride) 500 mls @ 333.333 mls/hr IV Q8H [facility] Last Admin: 06/02/17 07:30 Dose: 333.333 mls/hr Ibuprofen (Motrin) 400 mg PO Q6H PRN PRN Reason: Fever Last Admin: 05/31/17 23:01 Dose: 400 mg Insulin Aspart (Novolog) 0 unit SUBCUT ACBED [facility] PRN Reason: Protocol Last Admin: 06/02/17 08:54 Dose: Not Given Metoclopramide HCl (Reglan) 10 mg IVPUSH Q6H PRN PRN Reason: Nausea Ondansetron HCl (Zofran Odt) 4 mg PO Q4H PRN PRN Reason: nausea, able to take PO Oxycodone HCl (Oxycodone) 5 mg PO Q4H PRN PRN Reason: Pain (moderate 4-6) Pantoprazole Sodium (Protonix) 40 mg PO BEDTIME [facility] Last Admin: 06/01/17 20:53 Dose: 40 mg Promethazine HCl (Phenergan) 25 mg PO Q6H PRN PRN Reason: Nausea/Vomiting Sodium Chloride (Saline Flush) 10 ml FLUSH ASDIRECTED PRN PRN Reason: Keep Vein Open Last Admin: 06/02/17 05:19 Dose: 10 ml Spironolactone (Aldactone) 50 mg PO BID [facility] Last Admin: 06/02/17 09:13 Dose: 50 mg Vancomycin HCl (Pharmacy To Dose - Vancomycin) 1 dose .XX ASDIRECTED [facility] Venlafaxine HCl (Effexor Xr) 37.5 mg PO DAILY [facility] Last Admin: 06/02/17 09:13 Dose: 37.5 mg Discontinued Medications Sodium Chloride (Normal Saline) 1,000 mls @ 999 mls/hr IV .BOLUS ONE Stop: 05/31/17 20:19 Last Admin: 05/31/17 19:33 Dose: 999 mls/hr Vancomycin HCl 2 gm/ Sodium (Chloride) 500 mls @ 334 mls/hr IV ONETIME ONE Stop: 05/31/17 21:29 Last Admin: 05/31/17 20:14 Dose: 334 mls/hr Sodium Chloride (Normal Saline) 1,000 mls @ 150 mls/hr IV ASDIRECTED [facility] Last Admin: 06/01/17 07:49 Dose: 150 mls/hr Clindamycin Phosphate 600 mg/ (Sodium Chloride) 104 mls @ 200 mls/hr IV Q8H [facility] Last Admin: 06/01/17 13:51 Dose: Not Given Vancomycin HCl 1.5 gm/ Sodium (Chloride) 500 mls @ 333.333 mls/hr IV Q8H [facility] Last Admin: 06/01/17 14:48 Dose: Not Given Ibuprofen (Motrin) 200 mg PO Q6H PRN PRN Reason: Fever Ondansetron HCl (Zofran) 4 mg IV ONETIME ONE Stop: 05/31/17 19:20 Last Admin: 05/31/17 19:33 Dose: 4 mg Potassium Chloride (Klor-Con 10) 10 meq PO ONETIME ONE Stop: 05/31/17 20:41 Last Admin: 05/31/17 21:27 Dose: 10 meq Potassium Chloride (Klor-Con 10) 10 meq PO ONETIME ONE Stop: 06/01/17 09:40 Last Admin: 06/01/17 11:10 Dose: 10 meq Spironolactone (Aldactone) 50 mg PO BID [facility]LEXANDRA - Exam General: alert, oriented HEENT: Pupils equal, EOMI Neck: supple Lungs: Clear to auscultation, Normal respiratory effort Cardiovascular: Regular Rate, Regular Rhythm Abdomen: bowel sounds present, other (Morbidly obese) Back Exam: Normal Inspection Extremities: edema (Trace bilateral) Skin: warm Wound/Incisions: erythema (Off the buttock and back has been fading, did not enlarge since yesterday) Neurological: no new focal deficit - Problem List & Annotations (1) Cellulitis of buttock SNOMED Code(s): 39266790 Code(s): L03.317 - CELLULITIS OF BUTTOCK Status: Acute Current Visit: Yes (2) Thrombocytopenia SNOMED Code(s): 003207735 Code(s): D69.6 - THROMBOCYTOPENIA, UNSPECIFIED Status: Acute Current Visit: No (3) Morbid obesity SNOMED Code(s): 483501391 Code(s): E66.01 - MORBID (SEVERE) OBESITY DUE TO EXCESS CALORIES Status: Chronic Priority: Medium Current Visit: No - Problem List Review Problem List Initiated/Reviewed/Updated: Yes - My Orders Last 24 Hours: My Active Orders 06/01/17 13:00 Clindamycin Phosphate [Cleocin] 600 mg Sodium Chloride 0.9% [Normal Saline] 100 ml IV Q8H 06/01/17 13:54 Convert IV to Saline Lock [OM.PC] Routine 06/01/17 14:00 Vancomycin 1.5 gm Sodium Chloride 0.9% [Normal Saline] 500 ml IV Q8H - Plan Plan:: 37-year-old lady who is immunocompromised. History of BARNES, thrombocytopenia and leukopenia. cellulitis with sepsis present on admission The patient has a history of cellulitis not responding to oral antibiotic. Usually gets good results with clindamycin and IV vancomycin combination. blood cultures: 1/2 gram pos. cocci continue IV clindamycin and IV vancomycin repeat blood cultures in the morning Have to be conservative with Tylenol and nonsteroidals. continue Protonix for GI prophylaxis with the use of nonsteroidals and thrombocytopenia. Sepsis No severe sepsis, hemodynamically stable. resolved BARNES with associated thrombocytopenia / leukopenia -baseline platelets are in the 30-40 range - Follow platelets daily - cont spironolactone / lasix Morbid Obesity h/o lap band in 2005 increased risk of infections Hyponatremia Resolved recheck in AM Hypokalemia Continue spironolactone - changed to morning and afternoon dose rather than morning and evening give one more dose of by mouth potassium supplement today Rechecking the morning Hyperglycemia No history of diabetes but has a history of morbid obesity Will follow blood sugars Will need outpatient follow-up DVT prophylaxis Will be with compression stocking Hold anticoagulants given the significant thrombocytopenia
[2017-06-02] MEDS: SPIRONOLACTONE 25 MG PO SCH ×2 (14:39→14:42)
[2017-06-02] MEDS ORDERED: Potassium Chloride 10 MEQ Tab.ER PO ONE (16:00)
[2017-06-02] MEDS: Pantoprazole 40 MG Tab.CR PO SCH (21:03)
[2017-06-02] MEDS: oxyCODONE 5 MG Tab PO PRN (21:04)
[2017-06-03] MEDS: oxyCODONE 5 MG Tab PO PRN (03:44)
[2017-06-03] MEDS: Clindamycin Phosphate 600 MG in Sodium Chloride 0.9% 100 ML IV SCH ×3 (05:14→21:10)
[2017-06-03] MEDS: Sodium Chloride 0.9% 10 ML Syringe FLUSH PRN ×6 (05:15→21:49)
[2017-06-03] MEDS: Vancomycin 1.5 GM in Sodium Chloride 0.9% 500 ML IV SCH ×3 (06:04→21:50)
[2017-06-03 06:52] LABS: CHLORIDE,CL 104 mmol/L (101-111); SODIUM,NA 138 mmol/L (135-145)
[2017-06-03] MEDS: Insulin Aspart 100 Units/ML 3 ML Pen SUBCUT SCH ×4 (08:30→21:23)
[2017-06-03] MEDS: FUROSEMIDE 20 MG PO SCH (09:17)
[2017-06-03] MEDS: VENLAFAXINE 37.5 MG PO SCH (09:18)
[2017-06-03] MEDS: SPIRONOLACTONE 25 MG PO SCH ×2 (09:18→14:38)
--- NOTE | 2017-06-03 09:58 | PCM.PN ---
- General Info Date of Service: 06/03/17 Admission Dx/Problem (Free Text): Admission Diagnosis/Problem Admission Diagnosis/Problem Cellulitis Subjective Update: No more fever. Redness associated which itching on the back is continued. She did feel areas of the tenderness of the skin on both sides of the chest have improved. This is not associated with redness, swelling. Nausea and vomiting has resolved. Tolerating food well. No chest pain, no shortness of breath. He has generally better, less tired. Functional Status: Reports: pain controlled - Review of Systems General: Denies: Fever Pulmonary: Denies: shortness of breath Cardiovascular: Denies: Chest Pain - Patient Data Vitals - most recent: Last Vital Signs Temp 35.7 C 06/03/17 08:16 Pulse 94 06/03/17 08:16 Resp 20 06/03/17 08:16 BP 122/58 L 06/03/17 08:16 Pulse Ox 99 06/03/17 08:16 Weight - most recent: 158.757 kg I&O - last 24 hours: Intake & Output 06/02/17 06/03/17 06/03/17 22:59 06:59 14:59 Intake Total 502 1375 425 Output Total 100 1750 Balance 402 -375 425 Lab Results last 24 hrs: Laboratory Results - last 24 hr 06/02/17 06/02/17 06/02/17 Range/Units 11:14 16:33 21:07 WBC (5.0-10.0) 10^3/uL RBC (4.2-5.4) 10^6/uL Hgb (12.0-16.0) g/dL Hct (37.0-47.0) % MCV (80-100) fL MCH (27.0-34.0) pg MCHC (33.0-35.0) g/dL Plt Count (150-450) 10^3/uL Neut % (Auto) (42.2-75.2) % Lymph % (Auto) (20.5-50.1) % [place] % (Auto) (2-8) % Eos % (Auto) (1.0-3.0) % Baso % (Auto) (0.0-1.0) % Add Manual Diff Sodium (135-145) mmol/L Potassium (3.6-5.0) mmol/L Chloride (101-111) mmol/L Carbon Dioxide (21.0-31.0) mmol/L Anion Gap BUN (7-18) mg/dL Creatinine (0.6-1.3) mg/dL Est Cr Clr Drug Dosing Estimated GFR (MDRD) Glucose (74-105) mg/dL POC Glucose 162 H 115 H 121 H (70-105) mg/dl Calcium (8.4-10.2) mg/dl 06/03/17 06/03/17 06/03/17 Range/Units 06:24 06:24 08:00 WBC 9.6 (5.0-10.0) 10^3/uL RBC 4.33 (4.2-5.4) 10^6/uL Hgb 14.1 (12.0-16.0) g/dL Hct 40.3 (37.0-47.0) % MCV 93.1 (80-100) fL MCH 32.6 (27.0-34.0) pg MCHC 35.0 (33.0-35.0) g/dL Plt Count 32 L* (150-450) 10^3/uL Neut % (Auto) 80.3 H (42.2-75.2) % Lymph % (Auto) 9.0 L (20.5-50.1) % [place] % (Auto) 9.6 H (2-8) % Eos % (Auto) 1.0 (1.0-3.0) % Baso % (Auto) 0.1 (0.0-1.0) % Add Manual Diff Sodium 138 (135-145) mmol/L Potassium 3.4 L (3.6-5.0) mmol/L Chloride 104 (101-111) mmol/L Carbon Dioxide 25.0 (21.0-31.0) mmol/L Anion Gap 12.4 BUN 13 (7-18) mg/dL Creatinine 0.8 (0.6-1.3) mg/dL Est Cr Clr Drug Dosing TNP Estimated GFR (MDRD) > 60 Glucose 96 (74-105) mg/dL POC Glucose 89 (70-105) mg/dl Calcium 9.4 (8.4-10.2) mg/dl Husam Results last 24 hrs: Microbiology 06/03/17 06:24 Anaerobic Blood Culture - Final Blood - Venous 06/03/17 06:25 Anaerobic Blood Culture - Final Blood - Venous - Lab Draw Med Orders - Current: Current Medications Acetaminophen (Tylenol) 650 mg PO Q6H PRN PRN Reason: Pain (Mild 1-3)/fever Last Admin: 06/01/17 20:55 Dose: 650 mg Furosemide (Lasix) 40 mg PO DAILY [facility] Last Admin: 06/03/17 09:17 Dose: 40 mg Clindamycin Phosphate 600 mg/ (Sodium Chloride) 104 mls @ 200 mls/hr IV Q8H ALEXANDRA Last Admin: 06/03/17 05:14 Dose: 200 mls/hr Vancomycin HCl 1.5 gm/ Sodium (Chloride) 500 mls @ 333.333 mls/hr IV Q8H [facility] Last Admin: 06/03/17 06:04 Dose: 200 mls/hr Ibuprofen (Motrin) 400 mg PO Q6H PRN PRN Reason: Fever Last Admin: 05/31/17 23:01 Dose: 400 mg Insulin Aspart (Novolog) 0 unit SUBCUT ACBED [facility] PRN Reason: Protocol Last Admin: 06/03/17 08:30 Dose: Not Given Metoclopramide HCl (Reglan) 10 mg IVPUSH Q6H PRN PRN Reason: Nausea Ondansetron HCl (Zofran Odt) 4 mg PO Q4H PRN PRN Reason: nausea, able to take PO Oxycodone HCl (Oxycodone) 2.5 mg PO Q4H PRN PRN Reason: Pain (moderate 4-6) Pantoprazole Sodium (Protonix) 40 mg PO BEDTIME [facility] Last Admin: 06/02/17 21:03 Dose: 40 mg Potassium Chloride (Klor-Con 10) 40 meq PO ONETIME ONE Stop: 06/03/17 15:01 Potassium Chloride (Klor-Con 10) 20 meq PO BEDTIME ALEXANDRA Promethazine HCl (Phenergan) 25 mg PO Q6H PRN PRN Reason: Nausea/Vomiting Sodium Chloride (Saline Flush) 10 ml FLUSH ASDIRECTED PRN PRN Reason: Keep Vein Open Last Admin: 06/03/17 06:03 Dose: 10 ml Spironolactone (Aldactone) 50 mg PO BIDDIURETIC [facility] Last Admin: 06/03/17 09:18 Dose: 50 mg Vancomycin HCl (Pharmacy To Dose - Vancomycin) 1 dose .XX ASDIRECTED [facility] Venlafaxine HCl (Effexor Xr) 37.5 mg PO DAILY [facility] Last Admin: 06/03/17 09:18 Dose: 37.5 mg Discontinued Medications Sodium Chloride (Normal Saline) 1,000 mls @ 999 mls/hr IV .BOLUS ONE Stop: 05/31/17 20:19 Last Admin: 05/31/17 19:33 Dose: 999 mls/hr Vancomycin HCl 2 gm/ Sodium (Chloride) 500 mls @ 334 mls/hr IV ONETIME ONE Stop: 05/31/17 21:29 Last Admin: 05/31/17 20:14 Dose: 334 mls/hr Sodium Chloride (Normal Saline) 1,000 mls @ 150 mls/hr IV ASDIRECTED [facility] Last Admin: 06/01/17 07:49 Dose: 150 mls/hr Clindamycin Phosphate 600 mg/ (Sodium Chloride) 104 mls @ 200 mls/hr IV Q8H [facility] Last Admin: 06/01/17 13:51 Dose: Not Given Vancomycin HCl 1.5 gm/ Sodium (Chloride) 500 mls @ 333.333 mls/hr IV Q8H [facility] Last Admin: 06/01/17 14:48 Dose: Not Given Ibuprofen (Motrin) 200 mg PO Q6H PRN PRN Reason: Fever Ondansetron HCl (Zofran) 4 mg IV ONETIME ONE Stop: 05/31/17 19:20 Last Admin: 05/31/17 19:33 Dose: 4 mg Oxycodone HCl (Oxycodone) 5 mg PO Q4H PRN PRN Reason: Pain (moderate 4-6) Last Admin: 06/03/17 03:44 Dose: 2.5 mg Potassium Chloride (Klor-Con 10) 10 meq PO ONETIME ONE Stop: 05/31/17 20:41 Last Admin: 05/31/17 21:27 Dose: 10 meq Potassium Chloride (Klor-Con 10) 10 meq PO ONETIME ONE Stop: 06/01/17 09:40 Last Admin: 06/01/17 11:10 Dose: 10 meq Potassium Chloride (Klor-Con 10) 40 meq PO ONETIME ONE Stop: 06/02/17 16:01 Last Admin: 06/02/17 16:20 Dose: 40 meq Spironolactone (Aldactone) 50 mg PO BID [facility] Spironolactone (Aldactone) 50 mg PO BID [facility] Last Admin: 06/02/17 09:13 Dose: 50 mg - Exam General: alert, oriented Neck: supple Lungs: Clear to auscultation, Normal respiratory effort Cardiovascular: Regular Rate, Regular Rhythm Abdomen: soft, no tenderness, other (Morbidly obese) Extremities: no edema Skin: warm, dry Wound/Incisions: erythema (Visit few blisters on the lower back) Psy/Mental Status: alert, normal affect, normal mood - Problem List & Annotations (1) Cellulitis of buttock SNOMED Code(s): 58733851 Code(s): L03.317 - CELLULITIS OF BUTTOCK Status: Acute Current Visit: Yes (2) Thrombocytopenia SNOMED Code(s): 695637341 Code(s): D69.6 - THROMBOCYTOPENIA, UNSPECIFIED Status: Acute Current Visit: No (3) Morbid obesity SNOMED Code(s): 975284316 Code(s): E66.01 - MORBID (SEVERE) OBESITY DUE TO EXCESS CALORIES Status: Chronic Priority: Medium Current Visit: No - Problem List Review Problem List Initiated/Reviewed/Updated: Yes - My Orders Last 24 Hours: My Active Orders 06/02/17 14:00 Spironolactone [Aldactone] 50 mg PO BIDDIURETIC 06/03/17 05:11 Blood Culture x2 Reflex Set [OM.PC] AM 06/03/17 06:24 CULTURE BLOOD [BC] AM 06/03/17 06:25 CULTURE BLOOD [BC] AM 06/03/17 09:41 oxyCODONE 2.5 mg PO Q4H PRN 06/03/17 15:00 Potassium Chloride [Klor-Con 10] 40 meq PO ONETIME ONE 06/04/17 05:15 BASIC METABOLIC PANEL,BMP [CHEM] AM CBC WITH AUTO DIFF [HEME] AM 06/04/17 21:00 Potassium Chloride [Klor-Con 10] 20 meq PO BEDTIME - Plan Plan:: 37-year-old lady who is immunocompromised. History of BARNES, thrombocytopenia and leukopenia. cellulitis with sepsis present on admission The patient has a history of cellulitis not responding to oral antibiotic. Usually gets good results with clindamycin and IV vancomycin combination. blood cultures on admit: staph hominis 1/2 continue IV clindamycin and IV vancomycin repeat blood cultures today plan for further IV ABx if doing well consider discharge with home IV ABx - plan to set up picc line placement for Thursday at [facility] Have to be conservative with Tylenol and nonsteroidals. continue Protonix for GI prophylaxis with the use of nonsteroidals and thrombocytopenia. Sepsis No severe sepsis, hemodynamically stable. resolved BARNES with associated thrombocytopenia / leukopenia -baseline platelets are in the 30-40 range - Follow platelets daily - cont spironolactone / lasix Morbid Obesity h/o lap band in 2005 increased risk of infections Hyponatremia Resolved recheck in AM Hypokalemia Continue spironolactone - give one more dose of by mouth potassium supplement today add daily Kdur supplement Rechecking the morning Hyperglycemia No history of diabetes but has a history of morbid obesity Will follow blood sugars Will need outpatient follow-up DVT prophylaxis Will be with compression stocking Hold anticoagulants given the significant thrombocytopenia
[2017-06-03] MEDS ORDERED: Potassium Chloride 10 MEQ Tab.ER PO ONE (15:00)
[2017-06-03] MEDS: Pantoprazole 40 MG Tab.CR PO SCH (21:17)
[2017-06-04] MEDS: Sodium Chloride 0.9% 10 ML Syringe FLUSH PRN ×5 (00:27→22:30)
[2017-06-04] MEDS: oxyCODONE 5 MG Tab PO PRN ×2 (00:38→22:40)
[2017-06-04] MEDS: Clindamycin Phosphate 600 MG in Sodium Chloride 0.9% 100 ML IV SCH (05:02)
[2017-06-04] MEDS: Vancomycin 1.5 GM in Sodium Chloride 0.9% 500 ML IV SCH (06:06)
[2017-06-04 06:45] LABS: SODIUM,NA 139 mmol/L (138-146)
[2017-06-04 06:46] LABS: CHLORIDE,CL 99 mmol/L (98-109)
[2017-06-04] MEDS: Insulin Aspart 100 Units/ML 3 ML Pen SUBCUT SCH ×4 (07:47→23:38)
[2017-06-04] MEDS: FUROSEMIDE 20 MG PO SCH (08:41)
[2017-06-04] MEDS: SPIRONOLACTONE 25 MG PO SCH ×2 (08:43→13:58)
[2017-06-04] MEDS: VENLAFAXINE 37.5 MG PO SCH (08:44)
--- NOTE | 2017-06-04 12:22 | PN ---
DATE: 06/04/2017 SUBJECTIVE: Ms. Jacy Tamez is a 37-year-old female with medical history significant for BARNES leading to thrombocytopenia, leukopenia, status post lap band and morbid obesity, recurrent cellulitis and history of MRSA in the past admitted to the hospital with complaints of increasing lower back pain and buttock pain and noted to have cellulitis involving the back and the lower buttock regions and was started on IV antibiotic with vancomycin and clindamycin. For the last 24 hours, the patient continues to have pain to the back. She grades the pain as 5 to 6/10 in intensity, which gets aggravated on movement and palpation relieved with pain medication, nonradiating type of pain, not associated with nausea or vomiting. Denies any chest pain. No shortness of breath. No abdominal pain. No diarrhea. The patient has been tolerating the antibiotics well. REVIEW OF SYSTEMS: Cardiovascular, respiratory, gastrointestinal, neurology, constitutional were all evaluated. PHYSICAL EXAMINATION: Vital Signs: Temperature of 97.6, pulse of 84, blood pressure of 151/95, respiratory rate of 22, saturating at 99% on room air. General Appearance: The patient is well oriented to time, place, and person. Follows commands spontaneously Cardiovascular System: S1, S2 heard with normal intensity. No gallops. Respiratory: Clear to auscultation bilaterally. No wheeze. No crepitations. Abdomen: Soft. Bowel sounds positive. Nontender. No rigidity. Extremities: 2+ pitting edema noted in bilateral lower extremities. Skin: The patient is noted to have rash noted on the upper buttock region and also in the back area. The patient is noted to have diffuse cellulitis, which is tender, erythematous, and swollen. LABORATORY DATA: 1. Reviewed. WBC 7.1, hemoglobin 13.7, hematocrit 39.7, and platelet count 37. 2. Sodium 139, potassium 3.4, chloride 99, bicarb 26, BUN 11, creatinine 0.9, glucose 103. 3. One of 2 blood cultures positive for Staph hominis obtained on May 31, 2017. Rest of the blood cultures remain negative. MEDICATIONS: Reviewed. Continue with: 1. Tylenol 650 every 6 hours as needed for pain. 2. Clindamycin every 8 hours. 3. Lasix 40 mg oral daily. 4. Ibuprofen 400 mg every 6 hours as needed. 5. NovoLog supplemental scale. 6. Zofran 4 mg every 4 hours as needed for nausea and vomiting. 7. Oxycodone every 4 hours as needed for pain. 8. Protonix 40 mg at bedtime. 9. Potassium chloride 20 mEq at bedtime. 10.Promethazine 25 mg every 6 hours as needed for nausea and vomiting. Vancomycin pharmacy to dose. 11.Spironolactone 50 mg twice a day. 12.Effexor XR 37.5 mg daily. ASSESSMENT: 1. Cellulitis involving the lower back and also to the buttock. 2. Hyperglycemia. 3. Thrombocytopenia. 4. Hypokalemia. 5. Morbid obesity. 6. Possible sepsis. PLAN: 1. Cellulitis. The patient noted to have extensive cellulitis involving the lower back and also to the buttock region. The patient is noted to have swelling. The patient is noted to be on vancomycin and clindamycin and her rash actually progressed in the last few days. We will hold the clindamycin. We will continue with vancomycin, add Zosyn. The patient had history of hemorrhoids in the past. We will continue with Zosyn and vancomycin for now, and we will closely follow. The patient might need ID consultation if things does not improve in the next 1 or 2 days. The patient is encouraged to have fluid restriction secondary to her diffuse swelling. We will increase the Lasix to twice a day. We will closely follow. 2. Anemia and thrombocytopenia. The patient has underlying BARNES could be contributing from her BARNES. We will recheck a CBC in a.m. 3. Hyperglycemia. The patient denied any history of diabetes in the past. She is currently on supplemental scale insulin. Continue the same. 4. DVT prophylaxis. Continue with SCDs for DVT prophylaxis. No heparin given at this time secondary to severe thrombocytopenia. 5. Hypokalemia, replace with oral potassium chloride. Recheck a basic metabolic panel in a.m. 6. Discussed with Dr. Joaquin regarding the plan of care. [facility] /[id number]
[2017-06-04] MEDS: Piperacillin/Tazobactam 3.375 GM in Sodium Chloride 0.9% 100 ML IV SCH ×2 (13:59→21:54)
[2017-06-04] MEDS ORDERED: Furosemide 20 MG Tab PO SCH (14:00)
[2017-06-04] MEDS ORDERED: Furosemide 40 MG Tab **PT OWN MED PO SCH (14:50)
[2017-06-04] MEDS ORDERED: Vancomycin 1.5 GM in Sodium Chloride 0.9% 500 ML IV SCH (18:00)
[2017-06-04] MEDS: Potassium Chloride 10 MEQ Tab.ER PO SCH (21:52)
[2017-06-04] MEDS: Pantoprazole 40 MG Tab.CR PO SCH (21:53)
[2017-06-05] MEDS: Piperacillin/Tazobactam 3.375 GM in Sodium Chloride 0.9% 100 ML IV SCH ×3 (05:49→22:47)
[2017-06-05] MEDS: Sodium Chloride 0.9% 10 ML Syringe FLUSH PRN ×6 (05:49→19:00)
[2017-06-05] MEDS: Insulin Aspart 100 Units/ML 3 ML Pen SUBCUT SCH ×4 (08:04→20:45)
[2017-06-05] MEDS: SPIRONOLACTONE 25 MG PO SCH ×2 (08:17→15:59)
[2017-06-05] MEDS: VENLAFAXINE 37.5 MG PO SCH (08:17)
--- NOTE | 2017-06-05 12:21 | PN ---
DATE: 06/05/2017 SUBJECTIVE: Ms. Jcay Tamez is a 37-year-old female with medical history significant for BARNES leading to thrombocytopenia, leukopenia, morbid obesity, recurrent cellulitis, and history of MRSA in the past admitted to the hospital with complaints of pain to the lower back and buttock region. Noted to have extensive cellulitis and currently on IV antibiotics. For the last 24 hours, the patient is continued on IV vancomycin and IV Zosyn. The patient was noted to have elevated trough level, so we had to hold the vancomycin dose. She continues to have mild pain to the back region, 2 to 3/10 in intensity, aggravated on palpation, relieved with pain medication, nonradiating type of pain, not associated with nausea or vomiting. Denies any chest pain. No shortness of breath. No abdominal pain. REVIEW OF SYSTEMS: Cardiovascular, respiratory, gastrointestinal, neurology, constitutional were all evaluated. PHYSICAL EXAMINATION: Vital Signs: Temperature of 98.2, pulse of 80, blood pressure 139/84, respiratory rate of 20, saturating at 95% on room air. General Appearance: The patient is well oriented to time, place, and person. Follows commands spontaneously. Cardiovascular System: S1 and S2 heard with normal intensity. No gallops. Respiratory System: Clear to auscultation bilaterally. No wheeze. No crepitations. Abdomen: Soft. Bowel sounds positive. Nontender. No rigidity. Extremities: 2+ pitting edema noted in bilateral lower extremities. Skin: Cellulitis noted on the lower back and also to the buttock region. Erythema and swelling noted. Edema seems to be slightly improved from yesterday. MEDICATIONS: Reviewed. Continue with: 1. Tylenol 650 every 4 hours as needed for pain and fever. 2. Lasix increased to 60 mg twice a day. 3. Ibuprofen 400 mg every 6 hours as needed for fever. 4. NovoLog supplemental scale. 5. Zofran 4 mg every 4 hours as needed for nausea. 6. Oxycodone 2.5 mg every 4 hours as needed for pain. 7. Zosyn, pharmacy to dose. 8. Potassium chloride 20 mEq twice a day. 9. Vancomycin, pharmacy to dose. 10.Effexor XR 37.5 mg daily. LABORATORY DATA: Reviewed. WBC 7.1, hemoglobin 13.7, hematocrit 39.7, and platelet count 37. Sodium 139, potassium 3.4, chloride 99, bicarb 26, BUN 11, creatinine 0.9, glucose 99. Vancomycin trough level 29.7. ASSESSMENT: 1. Cellulitis. 2. Generalized edema. 3. Hyperglycemia. 4. Thrombocytopenia. 5. Possible sepsis. PLAN: 1. Cellulitis with possible sepsis seems to be improving at this time. The patient is currently on Zosyn and vancomycin. Continue the same. The patient is noted to have extensive edema, generalized. The patient is encouraged to have low-salt diet and fluid restriction. We will increase the Lasix to 60 mg twice a day. We will recheck a BMP in the a.m., and we will closely follow the patient. 2. Thrombocytopenia. This seems to be chronic in nature. This is mainly from her underlying liver disease. No indication for transfusion. Be cautious regarding DVT prophylaxis. The patient is not on any heparin products secondary to the thrombocytopenia. Use SCDs for DVT prophylaxis and encourage the patient to ambulate. 3. Hyperglycemia. The patient continues to have elevated blood glucose. She does not have any diagnosis of diabetes. The patient is currently on supplemental scale insulin. We will continue the same. [facility] /[id number]
[2017-06-05] MEDS: FUROSEMIDE 40 MG PO SCH (16:00)
[2017-06-05] MEDS: Vancomycin 1.5 GM in Sodium Chloride 0.9% 500 ML IV SCH (16:24)
[2017-06-05] MEDS: Pantoprazole 40 MG Tab.CR PO SCH (20:36)
[2017-06-05] MEDS: Potassium Chloride 10 MEQ Tab.ER PO SCH (20:37)
[2017-06-06] MEDS: Vancomycin 1.5 GM in Sodium Chloride 0.9% 500 ML IV SCH ×2 (00:38→13:13)
[2017-06-06] MEDS: Piperacillin/Tazobactam 3.375 GM in Sodium Chloride 0.9% 100 ML IV SCH ×3 (06:07→21:38)
[2017-06-06 07:01] LABS: CHLORIDE,CL 100 mmol/L (101-111); SODIUM,NA 141 mmol/L (135-145)
[2017-06-06] MEDS: Insulin Aspart 100 Units/ML 3 ML Pen SUBCUT SCH ×4 (07:48→22:53)
[2017-06-06] MEDS: FUROSEMIDE 40 MG PO SCH ×2 (08:22→14:34)
[2017-06-06] MEDS: VENLAFAXINE 37.5 MG PO SCH (08:23)
[2017-06-06] MEDS: SPIRONOLACTONE 25 MG PO SCH ×2 (08:23→14:33)
--- NOTE | 2017-06-06 12:28 | PN ---
DATE: 06/06/2017 SUBJECTIVE: Ms. Jacy Tamez is a 37-year-old female with a medical history significant for BARNES leading to thrombocytopenia, leukopenia, morbid obesity, recurrent cellulitis, history of MRSA infection in the past, admitted to the hospital with complaints of back pain and noted to have intense cellulitis involving the lower back and also to the buttock region. For the last 24 hours, the patient was continued on IV antibiotics with Zosyn and vancomycin. Her rash seems to be improving at this time. She continues to have mild pain to the back region. She denies any chest pain. No shortness of breath. No abdominal pain. No nausea. No vomiting. No diarrhea. No acute events overnight. REVIEW OF SYSTEMS: Cardiovascular, respiratory, gastrointestinal, neurology, and constitutional were all evaluated. PHYSICAL EXAMINATION: Vital Signs: Temperature of 97.6, pulse of 78, blood pressure of 144/76, respiratory rate of 20, and saturating at 98% on room air. General Appearance: The patient is well oriented to time, place, and person. Follows commands spontaneously. Cardiovascular System: S1 and S2 heard with normal intensity. No gallops. Respiratory System: Clear to auscultation bilaterally. No wheeze. No crepitations. Abdomen: Soft. Bowel sounds positive. Nontender. No rigidity. Extremities: Edema to the lower extremities and generalized edema noted. Neurology: No gross focal neurological deficits. MEDICATIONS: 1. Tylenol 650 every 6 hours as needed for pain. 2. Lasix 60 mg twice a day. 3. Ibuprofen 400 mg every 6 hours as needed for fever. 4. NovoLog supplemental scale. 5. Zofran 4 mg every 4 hours as needed for nausea. 6. Oxycodone 2.5 mg every 4 hours as needed for pain. 7. Protonix 40 mg at bedtime. 8. Zosyn, Pharmacy to dose. 9. Potassium chloride 20 mg twice a day. 10.Spironolactone 50 mg twice a day. 11.Vancomycin, Pharmacy to dose. 12.Effexor XR 37.5 mg daily. LABORATORY DATA: Labs reviewed. Sodium 141, potassium 3.8, chloride 100, bicarb 32. BUN 12, creatinine 0.8, glucose 105. ASSESSMENT: 1. Cellulitis. 2. History of methicillin-resistant Staphylococcus aureus in the past. 3. Generalized edema. 4. Hyperglycemia. 5. Thrombocytopenia. 6. Possible sepsis. PLAN: 1. Cellulitis with possible sepsis, which seems to be improving at this time. Continue with IV Zosyn and vancomycin. So far, her blood cultures remain negative; 1/2 blood cultures at the time of admission was positive for Staphylococcus hominis. Unsure if this is a contaminant. The patient had history of MRSA in the past, so we will continue vancomycin for now. 2. Generalized edema. The patient is started on Lasix. She is encouraged to have fluid restriction and salt restriction and increase the Lasix to 60 mg twice a day. We will closely follow. We will recheck a basic metabolic panel in the a.m. 3. Hyperglycemia. The patient is currently on insulin regimen. Continue the same. Try to avoid any hypoglycemic episodes. 4. Thrombocytopenia, seems to be chronic in nature. Platelet count is at 54. [facility] /[id number]
[2017-06-06] MEDS: Pantoprazole 40 MG Tab.CR PO SCH (21:37)
[2017-06-06] MEDS: Potassium Chloride 10 MEQ Tab.ER PO SCH (21:37)
[2017-06-07] MEDS: Vancomycin 1.5 GM in Sodium Chloride 0.9% 500 ML IV SCH ×2 (01:18→14:23)
[2017-06-07] MEDS: Piperacillin/Tazobactam 3.375 GM in Sodium Chloride 0.9% 100 ML IV SCH ×3 (06:10→23:19)
[2017-06-07] MEDS: Insulin Aspart 100 Units/ML 3 ML Pen SUBCUT SCH ×3 (07:57→20:14)
[2017-06-07] MEDS: SPIRONOLACTONE 25 MG PO SCH ×2 (09:04→14:30)
[2017-06-07] MEDS: VENLAFAXINE 37.5 MG PO SCH (09:04)
[2017-06-07] MEDS: FUROSEMIDE 40 MG PO SCH ×2 (09:08→14:30)
--- NOTE | 2017-06-07 12:21 | PN ---
DATE: 06/07/2017 SUBJECTIVE: Ms. Jacy Tamez is a 37-year-old female with medical history significant for BARNES leading to thrombocytopenia, leukopenia, morbid obesity, recurrent cellulitis, history of MRSA in the past admitted with complaints of back pain. She noted to have intensive cellulitis involving the lower back and also the buttock region. For the last 24 hours, the patient continues to have mild pain at the back, only 3 to 4/10 in intensity, comes kind of itchy in nature. No clear aggravating factors, relieved with pain medication, not associated with nausea or vomiting. Denies any chest pain. No shortness of breath. No abdominal pain. No diarrhea. No acute events overnight. REVIEW OF SYSTEMS: Cardiovascular, respiratory, gastrointestinal, neurology, and constitutional were all evaluated. PHYSICAL EXAMINATION: Vital Signs: Temperature of 97.4, pulse of 83, blood pressure 138/57, respiratory rate 20, saturating at 99% on room air. General Appearance: The patient is well oriented to time, place, and person. Follows commands spontaneously. Cardiovascular System: S1, S2 heard with normal intensity. No gallops. Respiratory: Clear to auscultation bilaterally. No wheeze. No crepitations. Abdomen: Soft. Bowel sounds positive. Nontender. No rigidity. Extremities: Mild edema noted in bilateral lower extremities. Skin: Erythema improving on the back, scabs noted. Scalding noted from the cellulitis. MEDICATIONS: Reviewed: 1. Tylenol 650 mg every 4 hours as needed for pain. 2. Lasix 60 mg twice a day. 3. Reglan 10 mg IV every 6 hours as needed. 4. Oxycodone 2.5 mg every 4 hours as needed. 5. Protonix 40 mg at bedtime. 6. Zosyn 3.375 g every 8 hourly. 7. Potassium chloride 20 mEq twice a day. 8. Spironolactone 50 mg twice a day. 9. Vancomycin pharmacy to dose. 10.Effexor XR 37.5 mg daily. LABS: Creatinine 0.8. GFR greater than 60. Blood glucose 102. ASSESSMENT: 1. Cellulitis. 2. History of methicillin-resistant Staphylococcus aureus infection in the past. 3. Generalized edema. 4. Hyperglycemia. 5. Thrombocytopenia. 6. Possible sepsis. PLAN: 1. Cellulitis with possible sepsis seems to be improving while on Zosyn and vancomycin. Continue with current IV antibiotic regimen. Continue with wound cares. Her sepsis seems to be resolved. The patient had history of MRSA in the past. So, continue with vancomycin pharmacy to dose the vancomycin for therapeutic ranges. 2. Generalized edema. I have increased the Lasix to 60 mg twice a day. Her swelling has much improved. The patient is also educated about fluid restriction, which she complains about. 3. Hyperglycemia, much improved. This could be resulting from the infection. We will check her fingersticks twice a day and use supplemental scale insulin as needed. Her blood sugars are trending down. 4. Thrombocytopenia, chronic in nature. No indication for transfusion. We will recheck a CBC in a.m. [facility] /[id number]
[2017-06-07] MEDS: Sodium Chloride 0.9% 10 ML Syringe FLUSH PRN ×2 (16:44→23:19)
[2017-06-07] MEDS: Potassium Chloride 10 MEQ Tab.ER PO SCH (22:04)
[2017-06-07] MEDS: Pantoprazole 40 MG Tab.CR PO SCH (22:05)
[2017-06-08] MEDS: Vancomycin 1.5 GM in Sodium Chloride 0.9% 500 ML IV SCH (01:48)
[2017-06-08] MEDS: Piperacillin/Tazobactam 3.375 GM in Sodium Chloride 0.9% 100 ML IV SCH ×2 (06:16→15:21)
[2017-06-08 07:06] LABS: CHLORIDE,CL 102 mmol/L (101-111); SODIUM,NA 139 mmol/L (135-145)
[2017-06-08 07:14] VITALS: BP 145/85
[2017-06-08] MEDS: Insulin Aspart 100 Units/ML 3 ML Pen SUBCUT SCH (07:39)
[2017-06-08] MEDS: SPIRONOLACTONE 25 MG PO SCH ×2 (09:19→15:19)
[2017-06-08] MEDS: FUROSEMIDE 40 MG PO SCH ×2 (09:20→15:19)
[2017-06-08] MEDS: VENLAFAXINE 37.5 MG PO SCH (09:21)
--- NOTE | 2017-06-08 14:18 | DISCH ---
ADMITTING DIAGNOSES: 1. Cellulitis of the back. 2. Sepsis with underlying cellulitis. 3. Thrombocytopenia and leukopenia. 4. Hyponatremia. 5. Hypokalemia. 6. Hyperglycemia. DISCHARGE DIAGNOSES: 1. Cellulitis with possible sepsis improved on IV antibiotics. 2. Hyponatremia and hypokalemia, improved. 3. Thrombocytopenia, chronic in nature. 4. The patient requiring prolonged IV antibiotic therapy, requiring discharged to swing bed. HISTORY OF PRESENTING ILLNESS: Ms. Joi Louie is a 37-year-old female with medical history significant for thrombocytopenia and leukopenia resulting from underlying BARNES (nonalcoholic steatohepatitis) and history of recurrent cellulitis and history of MRSA infection in the past was admitted to the hospital with complaints of increasing back pain and noted to have intense cellulitis involving the lower back region and also to the buttock region. The patient had intense erythema and rash. The patient was started on IV antibiotic with vancomycin and clindamycin initially after, which her rash did not improve much, so we had to switch her antibiotics to Zosyn and vancomycin. After which her rash and cellulitis is much improved. She continues to have scabs at this time requiring prolonged IV antibiotic therapy. Her blood culture was positive for Staph hominis one out of 2 blood cultures, and repeat blood cultures remain negative. She will need at least 5 more days of IV Zosyn and vancomycin. So she is being swing to swing bed status for continued IV antibiotics. and continued wound cares while in the swing bed. She remained hemodynamically stable on this admission. She is discharged to swing bed in stable condition. PHYSICAL EXAMINATION: Vital Signs: On the day of discharge; temperature of 98.1, pulse of 74, blood pressure 145/85, respiratory rate of 20, saturating at 97% on room air. General Appearance: The patient is well oriented to time, place, and person. Follows commands spontaneously. Cardiovascular System: S1, S2 heard with normal intensity. No gallops. Respiratory: Clear to auscultation bilaterally. No wheeze. No crepitations. Abdomen: Soft. Bowel sounds positive. Nontender. No rigidity. Extremities: No edema in bilateral lower extremities. Skin: Rash, the patient noted to have rash noted on the lower back and the buttock region on the posterior aspect, improving. Scabs noted. DISCHARGE MEDICATIONS: 1. Tylenol 650 every 4 hours as needed for pain. 2. Lasix 60 mg twice a day. 3. Reglan 10 mg IV every 6 hours as needed. 4. Oxycodone 2.5 mg every 4 hours as needed for pain. 5. Protonix 40 mg at bedtime. 6. Zosyn 3.375 g every 8 hours IV. 7. Potassium chloride 20 mEq twice a day. 8. Spironolactone 50 mg twice a day. 9. Vancomycin pharmacy to dose. 10.Effexor XR 37.5 mg daily. CONDITION ON ADMISSION: Poor. CONDITION ON DISCHARGE: Good. Discharged to swing bed for continued IV antibiotics and continued wound cares. ACTIVITY: As tolerated. DIET: Regular diet. I spent over 35 minutes of time in evaluating and treating this patient and getting discharge paperwork done. [facility] /[id number]
[2017-06-08] MEDS: Sodium Chloride 0.9% 10 ML Syringe FLUSH PRN (15:20)
== END 2017-06-08 15:31 | DRG 720 ==
LOC: DL.ED 19:04 → UNDOADMIN 20:26 → DL.MS 20:26 → UNDODISIN 06-08 10:31
PROVIDERS: ADMIT Internal Medicine; ATTEND Internal Medicine
DX: A41.9 Sepsis, unspecified organism (principal); L03.312 Cellulitis of back [any part except buttock and flank]; E87.1 Hypo-osmolality and hyponatremia; E87.6 Hypokalemia; D69.6 Thrombocytopenia, unspecified; L03.317 Cellulitis of buttock; B95.7 Other staphylococcus as the cause of diseases classified elsewhere; K75.81 Nonalcoholic steatohepatitis (NASH); I10 Essential (primary) hypertension; F41.8 Other specified anxiety disorders; E53.8 Deficiency of other specified B group vitamins; E55.9 Vitamin D deficiency, unspecified; E66.01 Morbid (severe) obesity due to excess calories; R73.9 Hyperglycemia, unspecified; Z68.43 Body mass index [BMI] 50.0-59.9, adult; Z79.2 Long term (current) use of antibiotics; Z88.8 Allergy status to other drugs, medicaments and biological substances; Z79.899 Other long term (current) drug therapy; Z86.73 Personal history of transient ischemic attack (TIA), and cerebral infarction without residual deficits
CPT/HCPCS: 36415; 80048; 80053; 80076; 80202; 82565; 82962; 83605; 85025; 85027; 87040; 87077; 87186; 96361; 96365; 96375; 99284; A9270-GY; J1815-GY; J2405; J2543; J3370; J7030; J7040; J7050; S0077

== ENCOUNTER 2017-06-08 10:30 | Inpatient (IN) | payer BC ==
[2017-06-08] MEDS ORDERED: Metoclopramide 10 MG/2 ML SDV IVPUSH PRN (11:00)
[2017-06-08] MEDS ORDERED: Promethazine 25 MG Tab PO PRN (11:00)
[2017-06-08] MEDS ORDERED: oxyCODONE 5 MG Tab PO PRN (11:00)
[2017-06-08] MEDS ORDERED: Ondansetron 4 MG Tab.DIS PO PRN (11:00)
[2017-06-08] MEDS ORDERED: Acetaminophen 325 MG Tab PO PRN (11:00)
[2017-06-08] MEDS ORDERED: Vancomycin 2 GM in Sodium Chloride 0.9% 500 ML IV SCH (12:00)
--- NOTE | 2017-06-08 13:57 | HP ---
CHIEF COMPLAINT: Cellulitis requiring IV antibiotics, Zosyn, vancomycin, and continued wound care requiring swing bed admission. HISTORY OF PRESENTING ILLNESS: Ms. Joi Louie is a 37-year-old female with a medical history significant for nonalcoholic steatohepatitis or fatty liver disease resulting in thrombocytopenia, splenomegaly, history of pulmonary embolism in the past, recurrent history of cellulitis and history of MRSA in the past was admitted to acute care setting on May 31, 2017, for intense pain to the lower back into the buttock and was noted to have increase cellulitis and sepsis. At the time of admission, the patient was initially started on vancomycin and clindamycin and during the course, the patient's cellulitis got worse, so we switched her to IV antibiotic, Zosyn, vancomycin after which her infection got improved. Her blood cultures 1/2 at the time of admission were positive for Staph hominis, which was thought to be possible contaminant. Repeat blood cultures remain negative. She continued on Zosyn and vancomycin. Her cellulitis has much improved. Given her history of MRSA in the past, the patient will need at least 10 days of IV antibiotics, so she will need at least 6 days of IV antibiotics more. She is getting Zosyn every 8 hourly. She is switched to swing bed at this time. We will continue with wound care also while in the swing bed. She denies any chest pains or shortness of breath at this time. She denies any abdominal pain. She continues to have pain to the lower back region where she has the rash. She rates the pain as 3 to 4/10 in intensity, aggravated on movement and palpation relieved with pain medication, nonradiating in nature not associated with any nausea or vomiting. Denies any chest pains or shortness of breath. REVIEW OF SYSTEMS: Cardiovascular, respiratory, gastrointestinal, neurology, constitutional, hematology, oncology, allergy, immunology were all evaluated. PAST MEDICAL HISTORY: Significant for: 1. Vitamin D deficiency. 2. Nonalcoholic steatohepatitis resulting in thrombocytopenia. 3. Splenomegaly. 4. History of psoriasis. 5. Cirrhosis of the liver. 6. Anxiety and depression. PAST SURGICAL HISTORY: Significant for: 1. Vertical banded gastroplasty. 2. Upper GI scoping. 3. Partial hysterectomy. 4. Diagnostic colonoscopy. FAMILY HISTORY: Significant for heart disease and cancer in her mother. Cancer and breast cancer in her maternal grandmother. Hypertension and diabetes in her cousin. SOCIAL HISTORY: The patient denied any history of smoking tobacco. History of occasional alcohol intake. ALLERGIC HISTORY: The patient noted to have allergies to Keflex, tape adhesives, erythromycin, and hydrocodone. PHYSICAL EXAMINATION: General: The patient is well oriented to time, place, and person. Follows commands spontaneously. Cardiovascular System: S1, S2 heard with normal intensity. No gallops. Respiratory: Clear to auscultation bilaterally. No wheeze. No crepitations. Abdomen: Soft. Bowel sounds positive. Nontender. No rigidity. Extremities: Mild edema in lower extremities. Skin: Rash noted on the lower back and also to the buttock region. Scabs noted on the lower back region. HOME MEDICATIONS: 1. Tylenol 650 every 4 hours as needed for pain. 2. Lasix 60 mg twice a day. 3. Reglan 10 mg every 6 hours as needed. 4. Oxycodone 2.5 mg every 4 hours as needed. 5. Protonix 40 mg at bedtime. 6. Zosyn 3.375 g every 8 hourly. 7. Potassium chloride 20 mEq twice a day. 8. Spironolactone 50 mg twice a day. 9. Vancomycin pharmacy to dose. 10.Effexor XR 37.5 mg daily. LABORATORY DATA: Reviewed within normal limits. ASSESSMENT: 1. Cellulitis requiring long-term IV antibiotics. 2. History of methicillin-resistant Staphylococcus aureus in the past. 3. Nonalcoholic steatohepatitis resulting in cirrhosis. 4. Thrombocytopenia. 5. Hyperglycemia. PLAN: 1. Cellulitis. The patient continues to get better on antibiotics. She will need at least 10-14 days of IV antibiotics. Given her positive blood culture and also MRSA in the past, we will continue with Zosyn vancomycin. We will continue with wound care while in the swing bed. The patient is noted to have scab on the lower back region. 2. Hyperglycemia. This seems to be much improved. Her hypoglycemia was mainly from her underlying infection, which seems to be improved. She did not require any treatment except for sliding scale. 3. Pain. The patient continues to have pain at the cellulitis site. Continue with current pain medications. 4. Thrombocytopenia. This is chronic in nature mainly from her underlying BARNES. We will avoid any heparin products for now. The patient is encouraged to ambulate around while in the swing bed. Use KELLY hose as needed. 5. Code status. The patient wants to be full code. 6. Reviewed the labs and medications. Reviewed the old charts. [facility] /[id number]
[2017-06-08] MEDS: Spironolactone 25 MG Tab PO SCH (15:40)
[2017-06-08] MEDS: Furosemide 40 MG Tab PO SCH (15:41)
[2017-06-08] MEDS: Piperacillin/Tazobactam 3.375 GM in Sodium Chloride 0.9% 100 ML IV SCH ×2 (15:41→22:18)
[2017-06-08] MEDS: Potassium Chloride 10 MEQ Tab.ER PO SCH (22:18)
[2017-06-08] MEDS: Pantoprazole 40 MG Tab.CR PO SCH (22:18)
[2017-06-09] MEDS: Piperacillin/Tazobactam 3.375 GM in Sodium Chloride 0.9% 100 ML IV SCH ×3 (06:06→21:40)
[2017-06-09] MEDS: Spironolactone 25 MG Tab PO SCH ×2 (08:30→13:52)
[2017-06-09] MEDS: Furosemide 40 MG Tab PO SCH ×2 (08:31→13:53)
[2017-06-09] MEDS: Venlafaxine 37.5 MG Cap.ER PO SCH (08:33)
[2017-06-09] MEDS: Sodium Chloride 0.9% 10 ML Syringe FLUSH PRN ×5 (13:45→21:40)
[2017-06-09] MEDS: Potassium Chloride 10 MEQ Tab.ER PO SCH (21:39)
[2017-06-09] MEDS: Pantoprazole 40 MG Tab.CR PO SCH (21:40)
[2017-06-10] MEDS: Sodium Chloride 0.9% 10 ML Syringe FLUSH PRN ×6 (03:00→21:42)
[2017-06-10] MEDS: Piperacillin/Tazobactam 3.375 GM in Sodium Chloride 0.9% 100 ML IV SCH ×3 (05:30→21:42)
[2017-06-10] MEDS: Spironolactone 25 MG Tab PO SCH ×2 (08:15→13:33)
[2017-06-10] MEDS: Venlafaxine 37.5 MG Cap.ER PO SCH (08:17)
[2017-06-10] MEDS: Furosemide 40 MG Tab PO SCH ×2 (08:19→13:33)
[2017-06-10] MEDS: Potassium Chloride 10 MEQ Tab.ER PO SCH (21:42)
[2017-06-10] MEDS: Pantoprazole 40 MG Tab.CR PO SCH (21:42)
[2017-06-11] MEDS: Piperacillin/Tazobactam 3.375 GM in Sodium Chloride 0.9% 100 ML IV SCH ×3 (06:04→22:03)
[2017-06-11] MEDS: Sodium Chloride 0.9% 10 ML Syringe FLUSH PRN ×4 (06:04→22:39)
[2017-06-11 07:12] LABS: CHLORIDE,CL 102 mmol/L (101-111); SODIUM,NA 138 mmol/L (135-145)
[2017-06-11] MEDS: Furosemide 40 MG Tab PO SCH ×3 (08:15→14:20)
[2017-06-11] MEDS: Spironolactone 25 MG Tab PO SCH ×3 (08:15→14:20)
[2017-06-11] MEDS: Venlafaxine 37.5 MG Cap.ER PO SCH ×2 (08:15→08:19)
[2017-06-11] MEDS: Pantoprazole 40 MG Tab.CR PO SCH (21:20)
[2017-06-11] MEDS: Potassium Chloride 10 MEQ Tab.ER PO SCH (21:20)
[2017-06-12] MEDS: Sodium Chloride 0.9% 10 ML Syringe FLUSH PRN ×4 (02:11→23:59)
[2017-06-12] MEDS: Piperacillin/Tazobactam 3.375 GM in Sodium Chloride 0.9% 100 ML IV SCH ×2 (05:35→18:29)
[2017-06-12] MEDS: Venlafaxine 37.5 MG Cap.ER PO SCH (09:01)
[2017-06-12] MEDS: Furosemide 40 MG Tab PO SCH ×2 (09:02→18:30)
[2017-06-12] MEDS: Spironolactone 25 MG Tab PO SCH ×2 (09:02→18:30)
[2017-06-12] MEDS: Pantoprazole 40 MG Tab.CR PO SCH (20:37)
[2017-06-12] MEDS: Potassium Chloride 10 MEQ Tab.ER PO SCH (20:37)
[2017-06-13] MEDS: Sodium Chloride 0.9% 10 ML Syringe FLUSH PRN ×5 (00:36→06:20)
[2017-06-13] MEDS: Piperacillin/Tazobactam 3.375 GM in Sodium Chloride 0.9% 100 ML IV SCH ×4 (05:40→13:00)
[2017-06-13 07:36] VITALS: BP 110/51
[2017-06-13] MEDS: Spironolactone 25 MG Tab PO SCH ×2 (08:41→13:00)
[2017-06-13] MEDS: Furosemide 40 MG Tab PO SCH ×2 (08:41→13:00)
[2017-06-13] MEDS: Venlafaxine 37.5 MG Cap.ER PO SCH (08:41)
--- NOTE | 2017-06-13 12:55 | PCM.DCSUM1 ---
Discharge Summary - Hospital Course Free Text/Narrative:: 37-year-old female with past medical history of fatty liver disease causing some pancytopenia, thyromegaly, pulmonary embolism, recurrent history of cellulitis and history of MRSA who was admitted to acute care settings on for lower back and upper buttock area cellulitis with pain and sepsis. She was initially started on vancomycin and clindamycin but her social life this was getting worse so that was changed to vancomycin and Zosyn and afterward her saliva is improved. One of her blood culture came back positive for staph hominis but only 1 bottle. Repeated blood culture was negative. She was continued on IV vancomycin and Zosyn and received about 10 days. On 06/08/17 she was admitted to swing bed to continue IV antibiotics. Patient's cellulitis markedly improved. Her pain is resolved and she has not had fever, chills, nausea, vomiting or feeling L4 is last several days. Her lower back and upper buttock area redness and swelling almost resolved. She has fading erythema with scabbing area on the back. Patient had an uneventful swing bed stay. She has no concerns or symptoms today other than some itching on the lower back. She was advised to use lotion. She was discharged home on Bactrim for an additional 5 days of antibiotics. During hospitalization her spironolacton was increased from 50 mg daily to twice a day and her Lasix from 40 mg twice a day to 60 mg twice a day. She'll be in potassium 20 twice a day. She was advised to see her primary care provider in 4-5 days and check her potassium level at that time. She will be discharged on the new regimen - Discharge Data Discharge Date: 06/13/17 Discharge Disposition: Home, Self-Care 01 Condition: Good - Patient Instructions Diet: Heart Healthy Diet Activity: As Tolerated Driving: May Drive Today Showering/Bathing: May Shower - Discharge Plan Prescriptions/Med Rec: Furosemide [Lasix] 60 mg PO BIDDIURETIC 30 Days Potassium Chloride [Klor-Con 10] 20 meq PO BEDTIME 30 Days Spironolactone [Aldactone] 50 mg PO BIDDIURETIC 30 Days Sulfamethoxazole/Trimethoprim [Bactrim Ds Tablet] 1 each PO BID #10 tablet Home Medications: Home Meds Venlafaxine [Effexor XR] 37.5 mg PO DAILY 02/12/16 [History] Furosemide [Lasix] 60 mg PO BIDDIURETIC 30 Days 06/13/17 [Rx] Potassium Chloride [Klor-Con 10] 20 meq PO BEDTIME 30 Days 06/13/17 [Rx] Spironolactone [Aldactone] 50 mg PO BIDDIURETIC 30 Days 06/13/17 [Rx] Sulfamethoxazole/Trimethoprim [Bactrim Ds Tablet] 1 each PO BID #10 tablet 06/13 [Rx] Patient Handouts: Furosemide tablets, Spironolactone tablets, Cellulitis, Adult , [id number], Sulfamethoxazole; Trimethoprim, SMX-TMP tablets, Potassium Salts oral solution Referrals: Alma Rivera MD [Primary Care Provider] - 06/16/17 - Discharge Summary/Plan Comment DC Time >30 min.: Yes (33 minutes were spent) - General Info Date of Service: 06/13/17 Functional Status: Reports: pain controlled - Review of Systems General: Reports: No Symptoms HEENT: Reports: no symptoms Pulmonary: Reports: no symptoms Cardiovascular: Reports: No Symptoms Gastrointestinal: Reports: No symptoms Genitourinary: Reports: no symptoms Musculoskeletal: Reports: no symptoms Skin: Reports: no symptoms (Accept some itching on the lower back) Neurological: Reports: No Symptoms Psychiatric: Reports: no symptoms - Patient Data Vitals - Most Recent: Last Vital Signs Temp 36.8 C 06/13/17 07:00 Pulse 69 06/13/17 07:00 Resp 20 06/13/17 07:00 BP 110/51 L 06/13/17 07:00 Pulse Ox 98 06/13/17 11:00 Weight - Most Recent: 158.213 kg I&O - Last 24 hours: Intake & Output 06/12/17 06/13/17 06/13/17 22:59 06:59 14:59 Intake Total 700 240 Output Total 600 900 Balance 100 -660 Med Orders - Current: Current Medications Acetaminophen (Tylenol) 650 mg PO Q6H PRN PRN Reason: Pain (Mild 1-3)/fever Furosemide (Lasix) 60 mg PO BIDDIURETIC ALEXANDRA Last Admin: 06/13/17 08:41 Dose: 60 mg Piperacillin Sod/Tazobactam (Sod 3.375 gm/ Sodium Chloride) 100 mls @ 200 mls/ hr IV Q8HR ALEXANDRA Last Admin: 06/13/17 05:40 Dose: 200 mls/hr Vancomycin HCl 1 gm/ Sodium (Chloride) 250 mls @ 166.667 mls/hr IV Q12H [facility] Last Admin: 06/13/17 02:02 Dose: 166.667 mls/hr Metoclopramide HCl (Reglan) 10 mg IVPUSH Q6H PRN PRN Reason: Nausea Ondansetron HCl (Zofran Odt) 4 mg PO Q4H PRN PRN Reason: nausea, able to take PO Oxycodone HCl (Oxycodone) 2.5 mg PO Q4H PRN PRN Reason: Pain (moderate 4-6) Pantoprazole Sodium (Protonix) 40 mg PO BEDTIME [facility] Last Admin: 06/12/17 20:37 Dose: 40 mg Potassium Chloride (Klor-Con 10) 20 meq PO BEDTIME [facility] Last Admin: 06/12/17 20:37 Dose: 20 meq Promethazine HCl (Phenergan) 25 mg PO Q6H PRN PRN Reason: Nausea/Vomiting Sodium Chloride (Saline Flush) 10 ml FLUSH ASDIRECTED PRN PRN Reason: Keep Vein Open Last Admin: 06/13/17 06:20 Dose: 10 ml Spironolactone (Aldactone) 50 mg PO BIDDIURETIC [facility] Last Admin: 06/13/17 08:41 Dose: 50 mg Vancomycin HCl (Pharmacy To Dose - Vancomycin) 1 dose .XX ASDIRECTED [facility] Venlafaxine HCl (Effexor Xr) 37.5 mg PO DAILY [facility] Last Admin: 06/13/17 08:41 Dose: 37.5 mg Discontinued Medications Vancomycin HCl 1.25 gm/ Sodium (Chloride) 250 mls @ 166.667 mls/hr IV Q12H [facility] Last Admin: 06/08/17 15:41 Dose: Not Given Vancomycin HCl (Pharmacy To Dose - Vancomycin) 1 dose .XX ASDIRECTED [facility] - Exam General: Reports: alert, oriented, cooperative. Denies: no acute distress, mild distress, moderate distress, severe distress, sedated, lethargic, obtunded HEENT: Reports: Pupils equal, Pupils reactive, EOMI, Mucous membr. moist/pink Neck: Reports: supple, trachea midline, no JVD Lungs: Reports: Clear to auscultation, Normal respiratory effort Cardiovascular: Reports: Regular Rate, Regular Rhythm Abdomen: Reports: bowel sounds present, soft, no tenderness, no distension. Denies: rigidity, guarding, tenderness (Female) Exam: Deferred Rectal (Female) Exam: Deferred Back Exam: Reports: Full Range of Motion. Denies: CVA Tenderness (L), CVA Tenderness (R), Decreased Range of Motion, Muscle Spasm, Paraspinal Tenderness, Vertebral Tenderness Extremities: Reports: no edema, normal pulses, no tenderness/swelling, no clubbing, no cyanosis, no calf tenderness Skin: Reports: warm, dry, other (Fading erythema on the lower back with scabbing area. No fluctuation or induration or drainage) Neurological: Reports: no new focal deficit Psy/Mental Status: Reports: alert, normal affect, normal mood *Q Meaningful Use (DIS) - VTE *Q VTE Criteria *Q: - Stroke *Q Stroke Criteria *Q: - AMI *Q AMI Criteria *Q:
== END 2017-06-13 15:15 | disposition home or self-care (01) | DRG 383 ==
LOC: UNDOADMIN 10:30 → DL.MS 10:30 → UNDOADMIN 11:02 → EEVIPCON 15:31 → DL.MS 15:31
PROVIDERS: ADMIT Internal Medicine; ATTEND Internal Medicine
DX: L03.317 Cellulitis of buttock (principal); Z86.711 Personal history of pulmonary embolism; K75.81 Nonalcoholic steatohepatitis (NASH); D69.6 Thrombocytopenia, unspecified; F41.8 Other specified anxiety disorders; L40.9 Psoriasis, unspecified; K74.60 Unspecified cirrhosis of liver; E55.9 Vitamin D deficiency, unspecified; Z86.14 Personal history of Methicillin resistant Staphylococcus aureus infection; R73.9 Hyperglycemia, unspecified; Z79.2 Long term (current) use of antibiotics; Z79.899 Other long term (current) drug therapy; R52 Pain, unspecified
CPT/HCPCS: 36415; 80048; 80202; 82565; 82962; A9270-GY; J2543; J3370; J7050

== ENCOUNTER 2017-08-04 21:07 | Inpatient (IN) | payer BC ==
[2017-08-04] MEDS ORDERED: Sodium Chloride 0.9% 1,000 ML IV ONE (21:30)
--- NOTE | 2017-08-04 21:57 | EDM.PDOC ---
ED HPI GENERAL MEDICAL PROBLEM - General Chief Complaint: Skin Complaint Stated Complaint: CELLULITIS ON BOTTOM, [id number] Time Seen by Provider: 08/04/17 21:50 Source of Information: Reports: Patient History Limitations: Reports: No Limitations - History of Present Illness INITIAL COMMENTS - FREE TEXT/NARRATIVE: This 37 yo female patient reports to the ED with increased swelling and pain in her buttocks. The patient was seen by Dr. Rivera in the clinic today and started on Augmenting and Bactrim. The patient reports she only took 1 dose this evening, but has noticed the area of redness and swelling has increased by about 4 times the size. The patient has been hospitalized for similar symptoms numerous times in the past requiring IV antibiotics. The patient does have a history of MRSA. During the previous admission, the patient was on IV Zosyn and IV Vanco. Onset: Today Duration: Constant, Getting Worse Location: Reports: Other (buttocks) Quality: Reports: Ache, Burning, Sharp Severity: Severe Improves with: Reports: None Worsens with: Reports: None Associated Symptoms: Reports: No Other Symptoms Treatments SANDER PORTABLE MACHINE: Reports: Other Medication(s) (Oral Augmentin and Bactrim (1 dose ) at 1900) Bilateral Pain Score (Numeric/FACES): 5 - Related Data Allergies Allergy/AdvReac Type Severity Reaction Status Date / Time adhesive Allergy Intermediate Hives Verified 08/04/17 21:18 hydrocodone Allergy Mild Nausea and Verified 08/04/17 21:18 Vomiting cephalexin monohydrate Allergy Hives Verified 08/04/17 21:18 [From Keflex] erythromycin base AdvReac Severe Nausea and Verified 08/04/17 21:18 [Erythromycin Base] Vomiting Home Meds: Home Meds Venlafaxine [Effexor XR] 37.5 mg PO DAILY 02/12/16 [History] Furosemide [Lasix] 60 mg PO BIDDIURETIC 30 Days tablet 06/13/17 [Rx] Potassium Chloride [Klor-Con 10] 20 meq PO BEDTIME 30 Days tab.er 06/13/17 [Rx] Spironolactone [Aldactone] 50 mg PO BIDDIURETIC 30 Days tablet 06/13/17 [Rx] Sulfamethoxazole/Trimethoprim [Bactrim Ds Tablet] 1 each PO BID #10 tablet 06/13 [Rx] Amoxicillin/Clavulanate K [Augmentin 875 MG/125 MG] 1 tab PO Q12HR 08/04/17 [ History] Past Medical History HEENT History: Reports: Impaired Vision Cardiovascular History: Reports: Blood Clots/VTE/DVT, Hypertension, Other (See Below) Other Cardiovascular History: edema BLE Respiratory History: Reports: Sleep Apnea Gastrointestinal History: Reports: Cirrhosis, Other (See Below) Other Gastrointestinal History: Non-alcoholic fatty liver disease, PORTAL HYPERTENSION Genitourinary History: Reports: Acute Renal Failure IMPORT COORDINATION AND PRODUCTION HEAD History: Reports: Endometriosis, Other (See Below) Other OB/BYN History: PRE CANCEROUS CERVICAL CELLS, RESULTED IN PARTIAL HYSTERECTOMY Musculoskeletal History: Reports: None Neurological History: Reports: None Psychiatric History: Reports: Anxiety, Depression Endocrine/Metabolic History: Reports: Obesity/BMI 30+ Hematologic History: Reports: B12 Deficiency, Blood Transfusion(s), Idiopathic Thrombocytopenia, Other (See Below) Other Hematologic History: VIT D DEFICIENCY,low platlets count Immunologic History: Reports: None Oncologic (Cancer) History: Reports: Other (See Below) Other Oncologic History: PRECANCEROUS CELLS UTERINE Dermatologic History: Reports: Chronic Cellulitis, Psoriasis Other Dermatologic History: RLE CELLULITIS - Infectious Disease History Infectious Disease History: Reports: Chicken Pox, MRSA - Past Surgical History GI Surgical History: Reports: Bariatric Procedure, Colonoscopy, EGD Oncologic Surgical History: Reports: Other (See Below) Social & Family History - Family History Family Medical History: Noncontributory Cardiac: Respiratory: GI: Reports: Other (See Below) Neurological: Psychiatric: Hematologic: - Tobacco Use Smoking Status *Q: Never Smoker Years of Tobacco use: 10 Packs/Tins Daily: 0.1 Used Tobacco, but Quit: No Second Hand Smoke Exposure: No - Caffeine Use Caffeine Use: Reports: Coffee, Soda - Alcohol Use Days Per Week of Alcohol Use: 0 - Recreational Drug Use Recreational Drug Use: No Drug Use in Last 12 Months: No ED ROS GENERAL - Review of Systems Review Of Systems: ROS reveals no pertinent complaints other than HPI. ED EXAM, SKIN/RASH Exam: See Below Exam Limited By: No Limitations General Appearance: Alert, WD/WN, Moderate Distress, Obese Eye Exam: Bilateral Eye: EOMI, Normal Inspection, PERRL Ears: Normal External Exam, Normal Canal, Hearing Grossly Normal, Normal TMs Nose: Normal Inspection, Normal Mucosa, No Blood Throat/Mouth: Normal Inspection, Normal Lips, Normal Teeth, Normal Gums, Normal Oropharynx, Normal Voice, No Airway Compromise Head: Atraumatic, Normocephalic Neck: Normal Inspection, Supple, Non-Tender, Full Range of Motion Respiratory/Chest: No Respiratory Distress, Lungs Clear, Normal Breath Sounds, No Accessory Muscle Use, Chest Non-Tender Cardiovascular: Normal Peripheral Pulses, Regular Rate, Rhythm, No Edema, No Gallop, No JVD, No Murmur, No Rub GI/Abdominal: Normal Bowel Sounds, Soft, Non-Tender, No Organomegaly, No Distention, No Abnormal Bruit, No Mass (Female) Exam: Deferred Rectal (Female) Exam: Deferred Extremities: Other (Tenderness and erythema of the upper buttocks and lower back ) Neurological: Alert, Oriented, CN II-XII Intact, Normal Cognition, Normal Gait, Normal Reflexes, No Motor/Sensory Deficits Psychiatric: Normal Affect, Normal Mood Skin: Erythema, Increased Warmth Location, Skin: Lower Extremity, Right, Lower Extremity, Left Characteristics: Erythematous Associated features: Warmth, Tenderness, Wwelling Lymphatic: No Adenopathy Course - Vital Signs Last Recorded V/S: Last Vital Signs Temp 37.3 C 08/04/17 21:11 Pulse 99 08/04/17 21:11 Resp 18 08/04/17 21:11 BP 144/76 H 08/04/17 21:11 Pulse Ox 98 08/04/17 21:11 - Orders/Labs/Meds Orders: Active Orders 24 hr Category Date Time Status CULTURE BLOOD [BC] Stat Lab 08/04/17 21:43 Received CULTURE BLOOD [BC] Stat Lab 08/04/17 21:50 Results Sodium Chloride 0.9% [Normal Saline] 1,000 ml Med 08/04/17 21:30 Active IV .BOLUS Blood Culture x2 Reflex Set [OM.PC] Stat Oth 08/04/17 21:29 Ordered Medication Orders Sodium Chloride (Normal Saline) 1,000 mls @ 125 mls/hr IV .BOLUS ONE Stop: 08/05/17 05:29 Last Admin: 08/04/17 21:45 Dose: 125 mls/hr Labs: Laboratory Tests 08/04/17 08/04/17 08/04/17 Range/Units 21:43 21:43 21:43 WBC 11.0 H (5.0-10.0) 10^3/uL RBC 4.30 (4.2-5.4) 10^6/uL Hgb 13.9 (12.0-16.0) g/dL Hct 40.5 (37.0-47.0) % MCV 94.2 (80-100) fL MCH 32.3 (27.0-34.0) pg MCHC 34.3 (33.0-35.0) g/dL Plt Count 40 L* (150-450) 10^3/uL Neut % (Auto) 92.8 H (42.2-75.2) % Lymph % (Auto) 2.6 L (20.5-50.1) % [place] % (Auto) 4.5 (2-8) % Eos % (Auto) 0.0 L (1.0-3.0) % Baso % (Auto) 0.1 (0.0-1.0) % Sodium 133 L (135-145) mmol/L Potassium 3.6 (3.6-5.0) mmol/L Chloride 100 L (101-111) mmol/L Carbon Dioxide 23.0 (21.0-31.0) mmol/L Anion Gap 13.6 BUN 12 (7-18) mg/dL Creatinine 0.6 (0.6-1.3) mg/dL Est Cr Clr Drug Dosing 114.40 mL/min Estimated GFR (MDRD) > 60 BUN/Creatinine Ratio 20.00 Glucose 156 H (74-105) mg/dL Lactic Acid 3.0 H (0.5-2.2) mmol/L Calcium 9.7 (8.4-10.2) mg/dl Total Bilirubin 4.6 H (0.2-1.0) mg/dL AST 50 H (10-42) IU/L ALT 28 (10-60) IU/L Alkaline Phosphatase 95 (42-121) IU/L B-Natriuretic Peptide 120 H (0-100) pg/ml Total Protein 6.7 (6.7-8.2) g/dl Albumin 3.2 (3.2-5.5) g/dl Globulin 3.5 Albumin/Globulin Ratio 0.91 Meds: Medications Generic Name Dose Route Start Last Admin Trade Name Freq PRN Reason Stop Dose Admin Sodium Chloride 1,000 mls @ 125 mls/hr 08/04/17 21:30 08/04/17 21:45 Normal Saline IV 08/05/17 05:29 125 mls/hr .BOLUS ONE Administration Departure - Departure Time of Disposition: 22:44 Disposition: Admitted As Inpatient 65 Condition: Fair Clinical Impression: Cellulitis Qualifiers: Site of cellulitis: buttock Qualified Code(s): L03.317 - Cellulitis of buttock - Discharge Information Forms: ED Department Discharge Care Plan Goals: Discussed the examination, history and lab results with Dr. Tijerina. Dr. Tijerina accepted the patient for continued evaluation and management as an inpatient at [facility]. - My Orders Last 24 Hours: My Active Orders 08/04/17 21:29 Blood Culture x2 Reflex Set [OM.PC] Stat 08/04/17 21:30 Sodium Chloride 0.9% [Normal Saline] 1,000 ml IV .BOLUS 08/04/17 21:43 CULTURE BLOOD [BC] Stat 08/04/17 21:50 CULTURE BLOOD [BC] Stat - Assessment/Plan Last 24 Hours: My Active Orders 08/04/17 21:29 Blood Culture x2 Reflex Set [OM.PC] Stat 08/04/17 21:30 Sodium Chloride 0.9% [Normal Saline] 1,000 ml IV .BOLUS 08/04/17 21:43 CULTURE BLOOD [BC] Stat 08/04/17 21:50 CULTURE BLOOD [BC] Stat
[2017-08-04 22:22] LABS: CHLORIDE,CL 100 mmol/L (101-111); SODIUM,NA 133 mmol/L (135-145)
[2017-08-04] MEDS ORDERED: Bisacodyl 10 MG Supp RECTAL PRN (22:54)
[2017-08-04] MEDS ORDERED: Magnesium Hydroxide 400 MG/5 ML Susp 30 ML Cup PO PRN (22:54)
[2017-08-04] MEDS ORDERED: Vancomycin 1.5 GM in Sodium Chloride 0.9% 500 ML IV SCH ×2 (23:00→23:15)
[2017-08-04] MEDS: Piperacillin/Tazobactam 3.375 GM in Sodium Chloride 0.9% 100 ML IV SCH (23:36)
[2017-08-05] MEDS: Vancomycin 1.5 GM in Sodium Chloride 0.9% 500 ML IV SCH ×4 (00:11→23:28)
[2017-08-05] MEDS: Acetaminophen 325 MG Tab PO PRN ×3 (00:12→21:28)
[2017-08-05] MEDS: Sodium Chloride 0.9% 10 ML Syringe FLUSH PRN ×5 (00:15→23:24)
[2017-08-05] MEDS: Piperacillin/Tazobactam 3.375 GM in Sodium Chloride 0.9% 100 ML IV SCH ×4 (04:43→22:46)
[2017-08-05] MEDS ORDERED: oxyCODONE 5 MG Tab PO PRN (07:33)
[2017-08-05] MEDS ORDERED: Spironolactone 25 MG Tab PO SCH (08:00)
[2017-08-05] MEDS ORDERED: Furosemide 40 MG Tab PO SCH (08:00)
[2017-08-05] MEDS ORDERED: Venlafaxine 37.5 MG Cap.ER PO SCH (09:00)
[2017-08-05] MEDS: VENLAFAXINE 37.5 MG PO SCH (10:34)
[2017-08-05] MEDS: FUROSEMIDE 40 MG PO SCH ×2 (10:34→21:34)
[2017-08-05] MEDS: SPIRONOLACTONE 50 MG PO SCH ×2 (10:34→21:34)
[2017-08-05] MEDS: Potassium Chloride 10 MEQ Tab.ER PO SCH (21:33)
[2017-08-06] MEDS: Sodium Chloride 0.9% 10 ML Syringe FLUSH PRN ×2 (01:41→04:59)
[2017-08-06] MEDS: Piperacillin/Tazobactam 3.375 GM in Sodium Chloride 0.9% 100 ML IV SCH ×4 (05:14→23:02)
--- NOTE | 2017-08-06 08:11 | PN ---
DATE: 08/05/2017 HISTORY OF PRESENT ILLNESS: Jacy was admitted last night with recurrent cellulitis of the bilateral buttocks. She is currently on Zosyn and vancomycin and is tolerating this. LABORATORY DATA: Repeat lab work this morning showed a white count down to 5.6, with 78% neutrophils, 15% bands. Lactic acid is now normal at 1.9. Two sets of blood cultures remained without any growth. Jacy noted some damp spot on the chux she was sitting on and wondered if the cellulitis was weeping. There is a large intact blister on the right medial buttock, but this is intact and fluid filled. It is not broken and is not leaking. We are not going to decompress this blister, but we will leave it intact. Examination of the buttock shows improvement in the area of redness since last night. The superior aspect of the redness has diminished about half of its original size. Otherwise, review of her clinical data shows she is taking in fluids, she is voiding and moving her bowels, she is tolerating her diet, vital signs are stable, and she continues to run a slight low-grade temperature. PHYSICAL EXAMINATION: Vital Signs: Blood pressure is 134/62, pulse 99, respiratory rate 20, oxygen saturation 99% on room air, and temperature is 99.9. T-max overnight was 100.2. HEENT: Unremarkable. Chest: Showed diminished bilateral breath sounds. Heart: Showed regular rate and rhythm. Abdomen: Obese, soft, benign. Buttocks: Examination of the cellulitic area shows improvement since time of admission, but still remains with a large area of redness on the lower buttock as well as fluid-filled blister on the right. No other changes are made today. We will continue with the current medications and treat. [facility] /[id number] HAIDER
[2017-08-06] MEDS: Vancomycin 1.5 GM in Sodium Chloride 0.9% 500 ML IV SCH ×3 (08:17→23:38)
[2017-08-06] MEDS: Acetaminophen 325 MG Tab PO PRN (09:48)
[2017-08-06] MEDS: VENLAFAXINE 37.5 MG PO SCH (09:49)
[2017-08-06] MEDS: FUROSEMIDE 40 MG PO SCH ×2 (09:50→14:09)
[2017-08-06] MEDS: SPIRONOLACTONE 50 MG PO SCH ×2 (09:50→14:10)
--- NOTE | 2017-08-06 12:32 | HP ---
REASON FOR ADMISSION: Recurrent cellulitis of the bilateral buttocks. HISTORY OF PRESENT ILLNESS: Ms. Tamez is a 37-year-old female well known to the staff from recurrent admissions for similar problems with cellulitis. She was seen by her primary care provider in the clinic this morning. She had noticed a pain in her buttock, and has a history of cellulitis of the lower back and buttock prior to this. There was redness noted on the right buttock. She does not know the trigger for this particular infection, but she wondered if she was scraped by a piece of plastic when she was riding in a friend's car several days ago. She was started on Augmentin and Bactrim twice a day for 1 week. She has oxycodone 2.5 mg every 6 hours p.r.n. for pain. She was told to avoid pressure in the effected area. If symptoms were not better in 2-3 days, she was to inform Dr. Rivera and consider IV antibiotics. She came into the ER on the same evening, was seen and evaluated by the ER physician, who referred her for admission. She had only taken 1 dose of the antibiotics and noticed the redness and swelling that had increased approximately "4 times" in size. PAST MEDICAL HISTORY: Significant for nonalcoholic fatty liver disease (BARNES). Diagnosed around 2004 when she was 25 years old. In the past had weighed as much as 354 pounds, and had undergone vertical gastric banding (sleeve). She dropped almost 100 pounds and went down to 250 pounds, and has now gained all of the weight back. She is currently 343 pounds. Her surgery had been performed at the [facility]. One week after surgery, she developed bilateral pulmonary emboli, and was on Coumadin for about 1 year. Approximately 2011 to 2013, she developed thrombocytopenia with platelets running between 28 and 71,000. She has had platelet transfusions in the past. She has undergone extensive workup of her liver disease including biopsies, endoscopy. At that time of the BARNES diagnosis, she was offered to be placed on liver transplant list or to proceed with bariatric surgery, and she chose the bariatric surgery. PAST SURGICAL HISTORY: Vaginal hysterectomy with ovaries left in place. The surgery was done for excessive vaginal bleeding. A uterine biopsy was performed prior to the surgery, which showed "precancer cells." She has had upper endoscopy, as well as colonoscopy in 2013. History of hypertension and non-compliance with medication. FAMILY HISTORY: No family history of liver disease. Family history is positive for hypertension, coronary artery disease, diabetes, and gallbladder disease. There are also various cancers in the family including ovarian, breast, skin, and stomach. SOCIAL HISTORY: She is . She has 2 adopted twin boys from the [facility]. There are about 8 years old now. She has never smoked cigarettes, and only drinks occasional social alcohol. 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 REVIEW OF SYSTEMS: As above as regards to cellulitis. Otherwise, no chest pain, shortness of breath. No fever or chills. No cough. No abdominal pain. No change in bowel or bladder habits. No blood by mouth or rectum. No recent falls or injuries. CURRENT MEDICATIONS: 1. Venlafaxine XR 37.5 mg daily. 2. Spironolactone 50 mg twice a day. 3. Potassium chloride 20 mEq once a day. 4. Furosemide 60 mg twice a day. ALLERGIES: Adhesive tape, hydrocodone, cephalexin, and erythromycin. PHYSICAL EXAMINATION: General: She is a morbidly obese female, in no acute distress. Vital signs: Blood pressure 146/78 on the left, 152/73 on the right, pulse 98 and regular, respiratory rate 18, oxygen saturation 100% on room air, temperature 100.2 degrees. Weight 343 pounds. Height 5 feet 4 inches. HEENT: Unremarkable. ENT was clear. Chest: Clear but diminished bilateral breath sounds. Heart: Showed regular rate and rhythm. Abdomen: Obese, soft, and benign. SKIN: Examination of the back, showed a large area of cellulitis from above the gluteal crease down to the bottom of the buttocks. There was 1 area of blistering on the right medial buttock, but blister was intact and fluid filled and was not broken. LABORATORY DATA: CBC showed a white count of 11,000, hemoglobin and hematocrit of 14 and 40.5, platelets were 40,000. Chemistry is unremarkable. BUN and creatinine 12 and 0.6, with a GFR of more than 60. Nonfasting glucose 156. Lactic acid was 3.0. LFTs showed total bili of 4.6. BNP was 120. Albumin 3.2. Two sets of blood cultures were drawn and are pending. No imaging studies were performed. IMPRESSION: A 37-year-old female with past medical history as above of non-alcoholic steatohepatitis and recurrent cellulitis of multiple sites, now once again presents with recurrent cellulitis of the bilateral buttocks and is admitted for further management. PLAN: Her usual medications will be continued. She was started on Zosyn 3.375 g every 6 hours, and vancomycin 1.5 g IV every 8 hours. We will follow her blood cultures. Pharmacy will dose the vancomycin, and a Vanco trough level will be obtained after the 4th dose. Heparin will not be used for VTE prophylaxis because of her liver disease and history of thrombocytopenia. KELLY hose will be placed. Repeat lab work will be ordered for tomorrow morning including white count with manual differential, and a repeat lactic acid. CONDITION AT TIME OF ADMISSION: Stable. CODE STATUS: Full code. [facility] /[id number] MTDD
[2017-08-06] MEDS: Enoxaparin 40 MG/0.4 ML Syringe SUBCUT SCH (14:10)
--- NOTE | 2017-08-06 14:47 | PN ---
DATE: 08/06/2017 SUBJECTIVE: Ms. Jacy Tamez is a 37-year-old female with a medical history significant for recurrent episodes of cellulitis involving the back and the buttocks region. She was admitted to the hospital again with cellulitis involving the buttocks, more so on the right side. For the last 24 hours, the patient is continued on IV antibiotic with Zosyn and vancomycin. She continues to have pain to the right buttock side. She grades the pain as 5 to 6/10 in intensity, aggravated on palpation, relieved with pain medication, nonradiating type of pain, not associated with any nausea or vomiting. Denies any chest pain. No shortness of breath. No abdominal pain. The patient had a blister on her right buttock which has burst open. No deep- seated abscess noted at this time. REVIEW OF SYSTEMS: Cardiovascular respiratory, gastrointestinal, neurology, constitutional were all evaluated. PHYSICAL EXAMINATION: Vital Signs: Temperature of 97.8, pulse of 85, blood pressure 131/67, respiratory rate 20, saturating at 98% on room air. General Appearance: The patient is well oriented to time, place, and person. Follows commands spontaneously. Cardiovascular System: S1, S2 heard with normal intensity. No gallops. Respiratory System: Clear to auscultation bilaterally. No wheeze. No crepitations. Abdomen: Soft. Bowel sounds positive. Nontender. No rigidity. Extremities: Mild edema in bilateral lower extremities. Erythema, tenderness, warmth felt on the lower back region and also in the bilateral buttocks, but more so on the right side. Small open blister noted. No deep-seated abscess noted. MEDICATIONS: Reviewed. 1. Continue with Tylenol 650 every 4 hours as needed for pain. 2. Milk of magnesia 30 mL as needed for constipation. 3. Oxycodone every 8 hours as needed for pain. 4. Spironolactone. 5. Lasix 40 mg twice a day. 6. Zosyn. 7. IV vancomycin, pharmacy to dose. ASSESSMENT: Cellulitis. PLAN: 1. Cellulitis. The patient is noted to have cellulitis involving the lower back region. She is currently on broad-spectrum antibiotics, Zosyn and vancomycin. The patient has recurrent infections. We will have a PICC line in place and continue antibiotics for now. We will await for culture reports and titrate the antibiotics once we have the cultures. 2. DVT prophylaxis. We will start her on Lovenox for DVT prophylaxis. 3. We will obtain basic metabolic panel and CBC in a.m. [facility] /[id number]
[2017-08-06] MEDS: Potassium Chloride 10 MEQ Tab.ER PO SCH (20:17)
[2017-08-07] MEDS: Acetaminophen 325 MG Tab PO PRN ×2 (01:59→12:57)
[2017-08-07] MEDS: Piperacillin/Tazobactam 3.375 GM in Sodium Chloride 0.9% 100 ML IV SCH ×2 (04:56→12:11)
[2017-08-07 06:46] LABS: CHLORIDE,CL 108 mmol/L (101-111); SODIUM,NA 140 mmol/L (135-145)
[2017-08-07] MEDS: Vancomycin 1.5 GM in Sodium Chloride 0.9% 500 ML IV SCH ×3 (08:04→19:57)
--- NOTE | 2017-08-07 10:43 | CR ---
Clinical history: 37-year-old female PICC line placement. Interpretation: PICC line catheter, left arm, identified with the tip located region of the proximal left subclavian vein (posterior lateral left second rib superimposed on this AP film). Lung apices clear. No pneumothorax.
--- NOTE | 2017-08-07 11:02 | PCM.SN ---
- Free Text/Narrative Note: 08-07-17 5 pitcairn islander double lumin 5 pitcairn islander PICC line inserted left anticubital vein using sterile techniqe placement of catheter checked by chest x-ray placement is in the left subclavian vein
[2017-08-07] MEDS: FUROSEMIDE 40 MG PO SCH ×2 (11:04→13:00)
[2017-08-07] MEDS: Enoxaparin 40 MG/0.4 ML Syringe SUBCUT SCH (11:04)
[2017-08-07] MEDS: VENLAFAXINE 37.5 MG PO SCH (11:05)
[2017-08-07] MEDS: SPIRONOLACTONE 50 MG PO SCH ×2 (11:05→13:00)
--- NOTE | 2017-08-07 12:34 | PN ---
DATE: 08/07/2017 SUBJECTIVE: Ms. Jacy Tamez is a 37-year-old female with medical history significant for cellulitis, recurrence in the back and buttock region. Admitted with similar complaints of cellulitis, involving the bilateral buttocks. For the last 24 hours, the patient continues to have pain to the low back region. She grades the pain as 4-5/10 in intensity and aggravated on sitting down and ambulation, relieved with pain medication, nonradiating type of pain, not associated with any nausea or vomiting. Denies any chest pain or shortness of breath. No abdominal pain. REVIEW OF SYSTEMS: Cardiovascular, respiratory, gastrointestinal, neurology, constitutional were all evaluated. PHYSICAL EXAMINATION: Vital Signs: Temperature of 97.9, pulse of 76, blood pressure 146/80, respiratory rate of 20, saturating at 97% on room air. General Appearance: The patient is well oriented to time, place, and person. Follows commands spontaneously. Cardiovascular System: S1, S2 heard with normal intensity. No gallops. Respiratory: Clear to auscultation bilaterally. No wheeze. No crepitations. Abdomen: Soft. Bowel sounds positive. Nontender. No rigidity. Extremities: Mild edema in bilateral lower extremities. Back: Cellulitis with erythema and tenderness noted in bilateral buttocks, but more so on the right side. Small blister, open wound noted. No active secretions noted at this time. No pus noted at this time. MEDICATIONS: Continue with: 1. Tylenol 650 every 4 hours as needed for pain. 2. Lovenox 40 mg subcutaneous daily. 3. Milk of magnesia 30 mL daily as needed. 4. Lasix 40 mg daily. 5. Spironolactone 50 mg twice a day. 6. Zosyn, pharmacy to dose. 7. Vancomycin, pharmacy to dose. 8. Potassium chloride 20 mEq twice a day. LABORATORY DATA: Reviewed. WBC 3.3, hemoglobin 12.3, hematocrit 35.8, platelet count 27. Sodium 140, potassium 3.4, chloride 108, BUN 8, creatinine 0.6, glucose 105. Vancomycin trough level 13.5. ASSESSMENT: 1. Cellulitis. 2. Hypokalemia. 3. Thrombocytopenia. 4. Nonalcoholic steatohepatitis. PLAN: 1. Cellulitis: The patient is currently on broad-spectrum antibiotics, Zosyn and vancomycin. Her WBC count has improved from 11 to 3.3 on this admission. We will discontinue the Zosyn. Continue with IV vancomycin. The patient would benefit from long-term antibiotics, given her extensive nature of the cellulitis. We have to put a PICC line in place for her to continue IV antibiotics as an outpatient. 2. Hypokalemia: The patient noted to have mild hypokalemia with potassium 3.4. We will replace with oral potassium chloride. Recheck a BMP in a.m. 3. Thrombocytopenia: This is chronic in nature. Platelet count down to 27. No indication for transfusion and we will recheck a CBC in a.m.. [facility] /[id number]
[2017-08-07] MEDS: Potassium Chloride 10 MEQ Tab.ER PO SCH ×3 (12:57→20:21)
[2017-08-08 07:17] LABS: CHLORIDE,CL 106 mmol/L (101-111); SODIUM,NA 139 mmol/L (135-145)
[2017-08-08 07:42] VITALS: BP 146/66
[2017-08-08] MEDS: Vancomycin 1.5 GM in Sodium Chloride 0.9% 500 ML IV SCH (07:56)
[2017-08-08] MEDS: Sodium Chloride 0.9% 10 ML Syringe FLUSH PRN (07:57)
[2017-08-08] MEDS: Potassium Chloride 10 MEQ Tab.ER PO SCH (07:57)
[2017-08-08] MEDS: VENLAFAXINE 37.5 MG PO SCH (09:12)
[2017-08-08] MEDS: FUROSEMIDE 40 MG PO SCH ×2 (09:13→13:54)
[2017-08-08] MEDS: SPIRONOLACTONE 50 MG PO SCH ×2 (09:15→13:55)
--- NOTE | 2017-08-08 22:54 | DISCH ---
ADMITTING DIAGNOSIS: Recurrent cellulitis involving the bilateral buttocks region. DISCHARGE DIAGNOSIS: Recurrent cellulitis involving the bilateral buttock region, improving on IV vancomycin. The patient will need 1 more week of IV vancomycin. HISTORY OF PRESENTING ILLNESS: Mrs. Jacy Tamez is a 37-year-old female with medical history significant for recurrent cellulitis, obesity, nonalcoholic fatty liver disease, BARNES, presents to the hospital with complaints of pain to the bilateral buttock region and was noted to have extensive cellulitis along with bulla. The patient responded well to the antibiotics. The patient was initially started on Zosyn and vancomycin. Then, we were able to titrate it down to IV vancomycin. The blood cultures remained negative thus far. She also continued with the diuretics. She was educated about the fluid restriction and asked her to restrict the fluid to less than 1.5 L a day. She is drinking more than 2 L a day at this time. She will continue with the Lasix and spironolactone. Pharmacy to dose the vancomycin as an outpatient. She will be coming back to the outpatient department for continuing her IV vancomycin for next 1 week. She is discharged home in stable condition. She is advised to follow with her primary care physician in the next 1 week of time. DISCHARGE MEDICATIONS: Include: 1. Lasix 60 mg twice a day. 2. Potassium chloride 20 mEq at bedtime. 3. Sodium chloride flush as needed to keep the vein open. 4. Spironolactone 50 mg twice a day. 5. Vancomycin 1.5 g IV q.12 hourly. 6. Effexor 37.5 mg daily. 7. Oxycodone 2.5 mg every 8 hours as needed for pain. 8. The patient is advised to stop taking the amoxicillin and Bactrim. PHYSICAL EXAMINATION ON THE DAY OF DISCHARGE: Vital Signs: Temperature of 96.6, pulse of 78, blood pressure 146/66, respiratory rate of 20, saturating at 97% on room air. General Appearance: The patient is well oriented to time, place, and person. Follows commands spontaneously. Cardiovascular: S1, S2 heard with normal intensity. No gallops. Respiratory: Clear to auscultation bilaterally. No wheeze. No crepitations. Abdomen: Soft. Bowel sounds positive. Nontender. No rigidity. Extremities: Edema, bilateral lower extremities. CONDITION ON ADMISSION: Poor. CONDITION ON DISCHARGE: Stable. ACTIVITY: As tolerated. DIET: Cardiac healthy diet with fluid restriction to less than 1.5 L a day. FOLLOWUP: 1. Follow up with primary care physician as scheduled. 2. Follow up with outpatient IV antibiotic course for 1 week. I spent over 35 minutes of time in evaluating and treating this patient and formulating discharge plan for the patient. [facility] /[id number]
== END 2017-08-08 14:50 | disposition home or self-care (01) | DRG 383 ==
LOC: DL.ED 21:07 → DL.MS 22:52 → UNDOADMIN 22:52 → DL.MS 22:54
PROVIDERS: ADMIT Internal Medicine; ATTEND Internal Medicine
PROC: 05H633Z Insertion of Infusion Device into Left Subclavian Vein, Percutaneous Approach (ICD-10-PCS; principal; 2017-08-07)
DX: L03.317 Cellulitis of buttock (principal); I10 Essential (primary) hypertension; Z86.718 Personal history of other venous thrombosis and embolism; G47.30 Sleep apnea, unspecified; F32.9 Major depressive disorder, single episode, unspecified; F41.9 Anxiety disorder, unspecified; K76.0 Fatty (change of) liver, not elsewhere classified; E66.9 Obesity, unspecified; Z68.30 Body mass index [BMI] 30.0-30.9, adult; E53.8 Deficiency of other specified B group vitamins; Z86.14 Personal history of Methicillin resistant Staphylococcus aureus infection; Z87.891 Personal history of nicotine dependence; Z88.6 Allergy status to analgesic agent; Z91.09 Other allergy status, other than to drugs and biological substances; Z88.1 Allergy status to other antibiotic agents; Z79.899 Other long term (current) drug therapy
CPT/HCPCS: 36415; 80048; 80053; 80202; 83605; 83880; 85007; 85025; 85027; 85048; 87040; 99284; A9270-GY; J1650; J2543; J3370; J7030; J7040; J7050

== ENCOUNTER 2017-08-27 07:51 | Inpatient (IN) | payer BC ==
--- NOTE | 2017-08-27 08:44 | EDM.PDOC ---
ED HPI GENERAL MEDICAL PROBLEM - General Chief Complaint: Skin Complaint Stated Complaint: CELLULITUS Time Seen by Provider: 08/27/17 08:10 Source of Information: Reports: Patient History Limitations: Reports: No Limitations - History of Present Illness INITIAL COMMENTS - FREE TEXT/NARRATIVE: This 37 yo female patient reports to the ED with the beginning of a 3rd episode of cellulitis. The patient reports her last dose of IV antibiotics was on . The patient had an episode in May 2017 also. Onset: Today Duration: Constant, Getting Worse Location: Reports: Lower Extremity, Right (buttocks) Quality: Reports: Ache, Sharp Severity: Severe Improves with: Reports: None Worsens with: Reports: None Context: Reports: Other Right Hip Pain Score (Numeric/FACES): 3 - Related Data Allergies Allergy/AdvReac Type Severity Reaction Status Date / Time cephalexin monohydrate Allergy Severe Hives Verified 08/27/17 07:56 [From Keflex] adhesive Allergy Intermediate Hives Verified 08/27/17 07:56 hydrocodone Allergy Mild Nausea and Verified 08/27/17 07:56 Vomiting erythromycin base AdvReac Severe Nausea and Verified 08/27/17 07:56 [Erythromycin Base] Vomiting Home Meds: Home Meds Venlafaxine [Effexor XR] 37.5 mg PO DAILY 02/12/16 [History] Furosemide [Lasix] 60 mg PO BIDDIURETIC 30 Days tablet 06/13/17 [Rx] Potassium Chloride [Klor-Con 10] 20 meq PO BEDTIME 30 Days tab.er 06/13/17 [Rx] Spironolactone [Aldactone] 50 mg PO BIDDIURETIC 30 Days tablet 06/13/17 [Rx] oxyCODONE 2.5 mg PO Q8H PRN #10 tablet 08/08/17 [Rx] Past Medical History HEENT History: Reports: Impaired Vision, Other (See Below) Other HEENT History: wears glasses Cardiovascular History: Reports: Blood Clots/VTE/DVT, Hypertension, Other (See Below) Other Cardiovascular History: edema BLE Respiratory History: Reports: Sleep Apnea Gastrointestinal History: Reports: Cirrhosis, Other (See Below) Other Gastrointestinal History: Non-alcoholic fatty liver disease, PORTAL HYPERTENSION Genitourinary History: Reports: Acute Renal Failure VET TECH History: Reports: Endometriosis, Other (See Below) Other OB/BYN History: PRE CANCEROUS CERVICAL CELLS, RESULTED IN PARTIAL HYSTERECTOMY Musculoskeletal History: Reports: None Neurological History: Reports: None Psychiatric History: Reports: Anxiety, Depression Endocrine/Metabolic History: Reports: Obesity/BMI 30+ Hematologic History: Reports: B12 Deficiency, Blood Transfusion(s), Idiopathic Thrombocytopenia, Other (See Below) Other Hematologic History: VIT D DEFICIENCY,low platlets count Immunologic History: Reports: None Oncologic (Cancer) History: Reports: Other (See Below) Other Oncologic History: PRECANCEROUS CELLS UTERINE Dermatologic History: Reports: Chronic Cellulitis, Psoriasis Other Dermatologic History: RLE CELLULITIS - Infectious Disease History Infectious Disease History: Reports: MRSA - Past Surgical History GI Surgical History: Reports: Bariatric Procedure, Colonoscopy, EGD Oncologic Surgical History: Reports: Other (See Below) Social & Family History - Family History Family Medical History: Noncontributory Cardiac: Respiratory: GI: Reports: Other (See Below) Neurological: Psychiatric: Hematologic: - Tobacco Use Smoking Status *Q: Never Smoker Years of Tobacco use: 10 Packs/Tins Daily: 0.1 Used Tobacco, but Quit: No Month Tobacco Last Used: june Second Hand Smoke Exposure: No - Caffeine Use Caffeine Use: Reports: None - Alcohol Use Days Per Week of Alcohol Use: 1 Number of Drinks Per Day: 2 Total Drinks Per Week: 2 - Recreational Drug Use Recreational Drug Use: No Drug Use in Last 12 Months: No ED ROS GENERAL - Review of Systems Review Of Systems: ROS reveals no pertinent complaints other than HPI. ED EXAM, SKIN/RASH Exam: See Below Exam Limited By: No Limitations General Appearance: Alert, WD/WN, Moderate Distress, Obese Eye Exam: Bilateral Eye: EOMI, Normal Inspection, PERRL Ears: Normal External Exam, Normal Canal, Hearing Grossly Normal, Normal TMs Nose: Normal Inspection, Normal Mucosa, No Blood Throat/Mouth: Normal Inspection, Normal Lips, Normal Teeth, Normal Gums, Normal Oropharynx, Normal Voice, No Airway Compromise Head: Atraumatic, Normocephalic Neck: Normal Inspection, Supple, Non-Tender, Full Range of Motion Respiratory/Chest: No Respiratory Distress, Lungs Clear, Normal Breath Sounds, No Accessory Muscle Use, Chest Non-Tender Cardiovascular: Normal Peripheral Pulses, Regular Rate, Rhythm, No Edema, No Gallop, No JVD, No Murmur, No Rub GI/Abdominal: Normal Bowel Sounds, Soft, Non-Tender, No Organomegaly, No Distention, No Abnormal Bruit, No Mass (Female) Exam: Deferred Rectal (Female) Exam: Deferred Back Exam: Normal Inspection, Full Range of Motion, NT Extremities: No Pedal Edema, Normal Capillary Refill, Redness (right buttocks) Neurological: Alert, Oriented, CN II-XII Intact, Normal Cognition, Normal Gait, Normal Reflexes, No Motor/Sensory Deficits Psychiatric: Normal Affect, Normal Mood Skin: Erythema (right buttocks) Location, Skin: Lower Extremity, Right Characteristics: Erythematous Associated features: Tenderness Lymphatic: No Adenopathy Course - Vital Signs Last Recorded V/S: Last Vital Signs Temp 36.2 C 08/27/17 08:04 Pulse 92 08/27/17 08:04 Resp 16 08/27/17 08:04 BP 151/81 H 08/27/17 08:04 Pulse Ox 98 08/27/17 08:04 - Orders/Labs/Meds Orders: Active Orders 24 hr Category Date Time Status COMPREHENSIVE METABOLIC PN,CMP [CHEM] Urgent Lab 08/27/17 08:11 Ordered CULTURE BLOOD [BC] Stat Lab 08/27/17 08:12 Ordered CULTURE BLOOD [BC] Stat Lab 08/27/17 08:12 Ordered LACTIC ACID [CHEM] Stat Lab 08/27/17 08:12 Ordered Blood Culture x2 Reflex Set [OM.PC] Stat Oth 08/27/17 08:12 Ordered Labs: Laboratory Tests 08/27/17 Range/Units 08:26 WBC 5.3 (5.0-10.0) 10^3/uL RBC 3.87 L (4.2-5.4) 10^6/uL Hgb 12.5 (12.0-16.0) g/dL Hct 36.4 L (37.0-47.0) % MCV 94.1 (80-100) fL MCH 32.3 (27.0-34.0) pg MCHC 34.3 (33.0-35.0) g/dL Plt Count 38 L* (150-450) 10^3/uL Neut % (Auto) 81.1 H (42.2-75.2) % Lymph % (Auto) 9.0 L (20.5-50.1) % [place] % (Auto) 8.8 H (2-8) % Eos % (Auto) 0.9 L (1.0-3.0) % Baso % (Auto) 0.2 (0.0-1.0) % Departure - Departure Time of Disposition: 08:48 Disposition: Admitted As Inpatient 65 Condition: Fair Clinical Impression: Cellulitis of buttock - Discharge Information Care Plan Goals: Discussed the patient's history, symptoms and examination with Dr. Joaquin. Dr. Joaquin accepted the patient for continued evaluation and treatment as an inpatient at [facility]. - My Orders Last 24 Hours: My Active Orders 08/27/17 08:11 COMPREHENSIVE METABOLIC PN,CMP [CHEM] Urgent 08/27/17 08:12 CULTURE BLOOD [BC] Stat CULTURE BLOOD [BC] Stat LACTIC ACID [CHEM] Stat Blood Culture x2 Reflex Set [OM.PC] Stat - Assessment/Plan Last 24 Hours: My Active Orders 08/27/17 08:11 COMPREHENSIVE METABOLIC PN,CMP [CHEM] Urgent 08/27/17 08:12 CULTURE BLOOD [BC] Stat CULTURE BLOOD [BC] Stat LACTIC ACID [CHEM] Stat Blood Culture x2 Reflex Set [OM.PC] Stat
[2017-08-27 08:53] LABS: CHLORIDE,CL 104 mmol/L (101-111); SODIUM,NA 135 mmol/L (135-145)
[2017-08-27] MEDS ORDERED: Ibuprofen 400 MG Tab PO PRN (10:21)
[2017-08-27] MEDS ORDERED: Zolpidem 5 MG Tab PO PRN (10:21)
[2017-08-27] MEDS ORDERED: Enoxaparin 40 MG/0.4 ML Syringe SUBCUT SCH (10:30)
--- NOTE | 2017-08-27 11:07 | PCM.HP ---
H&P History of Present Illness - General Date of Service: 08/27/17 Admit Problem/Dx: Admission Diagnosis/Problem Admission Diagnosis/Problem Cellulitis Source of Information: Patient History Limitations: Reports: No Limitations - History of Present Illness Initial Comments - Free Text/Narative: The patient is a 37-year-old lady with a history of recurrent cellulitis episodes. In the past she was diagnosed with MRSA cellulitis. She was recently treated with prolonged IV antibiotic Therapy for cellulitis on the right buttock. Initially during the acute hospital stay she was treated with Zosyn and vancomycin. Subsequently she was discharged on continued IV antibiotic as an outpatient. She was using vancomycin. The last dose was given about 12 days ago. On the day of admission she presented with complaints of pain in the right buttock and there was concern of a new erythematous area. She had no fever but had chills. No shortness of breath, no cough. No abdominal pain, diarrhea. Right Hip Pain Score (Numeric/FACES): 3 - Related Data Allergies/Adverse Reactions: Allergies Allergy/AdvReac Type Severity Reaction Status Date / Time cephalexin monohydrate Allergy Severe Hives Verified 08/27/17 09:27 [From Keflex] adhesive Allergy Intermediate Hives Verified 08/27/17 09:27 hydrocodone Allergy Mild Nausea and Verified 08/27/17 09:27 Vomiting erythromycin base AdvReac Severe Nausea and Verified 08/27/17 09:27 [Erythromycin Base] Vomiting Home Medications: Home Meds Venlafaxine [Effexor XR] 37.5 mg PO DAILY 02/12/16 [History] Furosemide [Lasix] 60 mg PO BIDDIURETIC 30 Days tablet 06/13/17 [Rx] Potassium Chloride [Klor-Con 10] 20 meq PO BEDTIME 30 Days tab.er 06/13/17 [Rx] Spironolactone [Aldactone] 50 mg PO BIDDIURETIC 30 Days tablet 06/13/17 [Rx] oxyCODONE 2.5 mg PO Q8H PRN #10 tablet 08/08/17 [Rx] Past Medical History HEENT History: Reports: Impaired Vision, Other (See Below) Other HEENT History: wears glasses Cardiovascular History: Reports: Blood Clots/VTE/DVT, Hypertension, Other (See Below) Other Cardiovascular History: edema BLE Respiratory History: Reports: Sleep Apnea Gastrointestinal History: Reports: Cirrhosis, Other (See Below) Other Gastrointestinal History: Non-alcoholic fatty liver disease, PORTAL HYPERTENSION Genitourinary History: Reports: Acute Renal Failure [employer] History: Reports: Endometriosis, Other (See Below) Other OB/BYN History: PRE CANCEROUS CERVICAL CELLS, RESULTED IN PARTIAL HYSTERECTOMY Musculoskeletal History: Reports: None Neurological History: Reports: None Psychiatric History: Reports: Anxiety, Depression Endocrine/Metabolic History: Reports: Obesity/BMI 30+ Hematologic History: Reports: B12 Deficiency, Blood Transfusion(s), Idiopathic Thrombocytopenia, Other (See Below) Other Hematologic History: VIT D DEFICIENCY,low platlets count Immunologic History: Reports: None Oncologic (Cancer) History: Reports: Other (See Below) Other Oncologic History: PRECANCEROUS CELLS UTERINE Dermatologic History: Reports: Chronic Cellulitis, Psoriasis Other Dermatologic History: RLE CELLULITIS - Infectious Disease History Infectious Disease History: Reports: MRSA - Past Surgical History HEENT Surgical History: Reports: Myringotomy w Tube(s) Respiratory Surgical History: Reports: None GI Surgical History: Reports: Bariatric Procedure, Colonoscopy, EGD Female Surgical History: Reports: Hysterectomy Endocrine Surgical History: Reports: None Neurological Surgical History: Reports: None Musculoskeletal Surgical History: Reports: None Oncologic Surgical History: Reports: Other (See Below) Other Oncologic Surgeries/Procedures: hysterectomy Dermatological Surgical History: Reports: None Social & Family History - Family History Family Medical History: Noncontributory Cardiac: Respiratory: GI: Reports: Other (See Below) Neurological: Psychiatric: Hematologic: - Tobacco Use Smoking Status *Q: Never Smoker Years of Tobacco use: 10 Packs/Tins Daily: 0.1 Used Tobacco, but Quit: No Month Tobacco Last Used: june Second Hand Smoke Exposure: No - Caffeine Use Caffeine Use: Reports: None - Alcohol Use Days Per Week of Alcohol Use: 1 Number of Drinks Per Day: 2 Total Drinks Per Week: 2 - Recreational Drug Use Recreational Drug Use: No Drug Use in Last 12 Months: No H&P Review of Systems - Review of Systems: Review Of Systems: See Below General: Reports: Chills. Denies: Fever Pulmonary: Denies: Shortness of Breath Cardiovascular: Denies: Chest Pain Gastrointestinal: Denies: Abdominal Pain Skin: Reports: Erythema (New area on the right buttock) Psychiatric: Denies: Confusion Exam - Exam Exam: See Below - Vital Signs Vital Signs: Last Vital Signs Temp 36.2 C 08/27/17 08:04 Pulse 92 08/27/17 08:04 Resp 16 08/27/17 08:04 BP 151/81 H 08/27/17 08:04 Pulse Ox 98 08/27/17 08:04 Weight: 154.176 kg - Exam General: Alert, Oriented, Other (Morbidly obese) Neck: Supple Lungs: Clear to Auscultation, Normal Respiratory Effort Cardiovascular: Regular Rate, Regular Rhythm GI/Abdominal Exam: Normal Bowel Sounds, Soft Extremities: No Pedal Edema Skin: Warm, Dry, Other (On the buttock there is an area of erythema which the patient says that has been present in the past during the last stay. There is a faint small area of redness which the patient feels is new.) Neuro Extensive - Mental Status: Alert, Oriented x3 - Patient Data Result Diagrams: 08/27/17 08:26 08/27/17 08:26 *Q Meaningful Use (ADM) - VTE *Q VTE Criteria *Q: - Stroke *Q Stroke Criteria *Q: - AMI *Q AMI Criteria *Q: - Problem List (1) Cellulitis of buttock SNOMED Code(s): 65301584 ICD Code: L03.317 - CELLULITIS OF BUTTOCK Status: Acute Current Visit: Yes (2) Thrombocytopenia SNOMED Code(s): 042023742 ICD Code: D69.6 - THROMBOCYTOPENIA, UNSPECIFIED Status: Acute Current Visit: No Problem List Initiated/Reviewed/Updated: Yes Orders Last 24hrs: Active Orders 24 hr Category Date Time Status VANCOMYCIN TROUGH [CHEM] Routine Lab 08/28/17 18:30 Ordered Vancomycin 1.5 gm Med 08/27/17 11:00 Active Sodium Chloride 0.9% [Normal Saline] 500 ml IV Q8H Medication Orders Acetaminophen (Tylenol) 650 mg PO Q4H PRN PRN Reason: Pain (Mild 1-3)/fever Furosemide (Lasix) 60 mg PO BIDDIURETIC [facility] Piperacillin Sod/Tazobactam (Sod 3.375 gm/ Sodium Chloride) 100 mls @ 200 mls/ hr IV Q6HR [facility] Vancomycin HCl 1.5 gm/ Sodium (Chloride) 500 mls @ 333.333 mls/hr IV Q8H [facility] Ibuprofen (Motrin) 400 mg PO Q6H PRN PRN Reason: Pain (mild 1-3) Oxycodone HCl (Oxycodone) 2.5 mg PO Q8H PRN PRN Reason: Pain (severe 7-10) Potassium Chloride (Klor-Con 10) 20 meq PO BEDTIME [facility] Senna/Docusate Sodium (Senna Plus) 1 tab PO BEDTIME PRN PRN Reason: Constipation Sodium Chloride (Saline Flush) 10 ml FLUSH ASDIRECTED PRN PRN Reason: Keep Vein Open Spironolactone (Aldactone) 50 mg PO BIDDIURETIC [facility] Vancomycin HCl (Pharmacy To Dose - Vancomycin) 1 dose .XX ASDIRECTED [facility] Venlafaxine HCl (Effexor Xr) 37.5 mg PO DAILY [facility] Zolpidem Tartrate (Ambien) 5 mg PO BEDTIME PRN PRN Reason: Sleep Assessment/Plan Comment:: 37-year-old with a history of frequent cellulitis. History of MRSA cellulitis. Recently finished IV vancomycin treatment for a buttock cellulitis. Presents with a new area of redness. It is difficult to say how much of this is a new versus old, much of this is truly cellulitis or pressure related. Given the patient's history of cellulitis and skin abscesses spreading quickly Will admit the patient Obtain blood cultures start Zosyn and vancomycin empirically Monitor symptoms The patient has a difficult IV access We will try to obtain a PICC line Chronic thrombocytopenia We'll monitor DVT prophylaxis will be with SCDs and mobilization Chronic pain with chronic continuous narcotic use Continue oxycodone as needed
[2017-08-27] MEDS: Sodium Chloride 0.9% 10 ML Syringe FLUSH PRN ×6 (11:41→23:41)
[2017-08-27] MEDS: Vancomycin 1.5 GM in Sodium Chloride 0.9% 500 ML IV SCH ×2 (11:41→19:34)
[2017-08-27] MEDS: Piperacillin/Tazobactam 3.375 GM in Sodium Chloride 0.9% 100 ML IV SCH ×3 (13:36→23:41)
[2017-08-27] MEDS: SPIRONOLACTONE 25 MG PO SCH (13:43)
[2017-08-27] MEDS: FUROSEMIDE 40 MG PO SCH (13:43)
[2017-08-27] MEDS: Potassium Chloride 10 MEQ Tab.ER PO SCH (20:35)
[2017-08-27] MEDS: oxyCODONE 5 MG Tab PO PRN (23:58)
[2017-08-28] MEDS: Sodium Chloride 0.9% 10 ML Syringe FLUSH PRN ×5 (00:22→23:40)
[2017-08-28] MEDS: Vancomycin 1.5 GM in Sodium Chloride 0.9% 500 ML IV SCH ×3 (02:51→18:00)
[2017-08-28] MEDS: Piperacillin/Tazobactam 3.375 GM in Sodium Chloride 0.9% 100 ML IV SCH ×4 (05:33→23:41)
[2017-08-28 06:52] LABS: CHLORIDE,CL 108 mmol/L (101-111); SODIUM,NA 139 mmol/L (135-145)
[2017-08-28] MEDS: VENLAFAXINE 37.5 MG PO SCH (09:11)
[2017-08-28] MEDS: FUROSEMIDE 40 MG PO SCH ×2 (09:11→14:03)
[2017-08-28] MEDS: SPIRONOLACTONE 25 MG PO SCH ×2 (09:11→14:03)
[2017-08-28] MEDS: oxyCODONE 5 MG Tab PO PRN ×2 (09:17→20:45)
--- NOTE | 2017-08-28 10:26 | PCM.PN ---
- General Info Date of Service: 08/28/17 Admission Dx/Problem (Free Text): Admission Diagnosis/Problem Admission Diagnosis/Problem Cellulitis Functional Status: Reports: Tolerating Diet, Ambulating - Review of Systems General: Denies: Fever Pulmonary: Denies: Shortness of Breath Cardiovascular: Denies: Chest Pain Gastrointestinal: Denies: Abdominal Pain Skin: Reports: Rash (Increased redness was developing yesterday. Has remained stable overnight.) Neurological: Denies: Confusion - Patient Data Vitals - Most Recent: Last Vital Signs Temp 36.7 C 08/28/17 07:00 Pulse 77 08/28/17 07:00 Resp 20 08/28/17 07:00 BP 138/68 08/28/17 07:00 Pulse Ox 98 08/28/17 07:00 Weight - Most Recent: 154.176 kg I&O - Last 24 Hours: Intake & Output 08/27/17 08/28/17 08/28/17 22:59 06:59 14:59 Intake Total 1299 2100 Output Total 2000 700 Balance -701 1400 Lab Results Last 24 Hours: Laboratory Results - last 24 hr 08/28/17 08/28/17 Range/Units 06:25 06:25 WBC 3.7 L (5.0-10.0) 10^3/uL RBC 3.77 L (4.2-5.4) 10^6/uL Hgb 12.2 (12.0-16.0) g/dL Hct 35.8 L (37.0-47.0) % MCV 95.0 (80-100) fL MCH 32.4 (27.0-34.0) pg MCHC 34.1 (33.0-35.0) g/dL Plt Count 32 L* (150-450) 10^3/uL Neut % (Auto) 72.6 (42.2-75.2) % Lymph % (Auto) 14.1 L (20.5-50.1) % Posey % (Auto) 11.4 H (2-8) % Eos % (Auto) 1.6 (1.0-3.0) % Baso % (Auto) 0.3 (0.0-1.0) % Sodium 139 (135-145) mmol/L Potassium 3.6 (3.6-5.0) mmol/L Chloride 108 (101-111) mmol/L Carbon Dioxide 24.0 (21.0-31.0) mmol/L Anion Gap 10.6 BUN 9 (7-18) mg/dL Creatinine 0.5 L (0.6-1.3) mg/dL Est Cr Clr Drug Dosing 131.74 mL/min Estimated GFR (MDRD) > 60 Glucose 108 H (74-105) mg/dL Calcium 9.2 (8.4-10.2) mg/dl Med Orders - Current: Current Medications Acetaminophen (Tylenol) 650 mg PO Q4H PRN PRN Reason: Pain (Mild 1-3)/fever Furosemide (Lasix) 60 mg PO BIDDIURETIC [facility] Last Admin: 08/28/17 09:11 Dose: 60 mg Piperacillin Sod/Tazobactam (Sod 3.375 gm/ Sodium Chloride) 100 mls @ 200 mls/ hr IV Q6HR [facility] Last Infusion: 08/28/17 06:26 Dose: Infused Vancomycin HCl 1.5 gm/ Sodium (Chloride) 500 mls @ 333.333 mls/hr IV Q8H [facility] Last Admin: 08/28/17 02:51 Dose: 333.333 mls/hr Ibuprofen (Motrin) 400 mg PO Q6H PRN PRN Reason: Pain (mild 1-3) Oxycodone HCl (Oxycodone) 2.5 mg PO Q8H PRN PRN Reason: Pain (severe 7-10) Last Admin: 08/28/17 09:17 Dose: 2.5 mg Potassium Chloride (Klor-Con 10) 20 meq PO BEDTIME [facility] Last Admin: 08/27/17 20:35 Dose: 20 meq Senna/Docusate Sodium (Senna Plus) 1 tab PO BEDTIME PRN PRN Reason: Constipation Sodium Chloride (Saline Flush) 10 ml FLUSH ASDIRECTED PRN PRN Reason: Keep Vein Open Last Admin: 08/28/17 05:33 Dose: 10 ml Spironolactone (Aldactone) 50 mg PO BIDDIURETIC [facility] Last Admin: 08/28/17 09:11 Dose: 50 mg Vancomycin HCl (Pharmacy To Dose - Vancomycin) 1 dose .XX ASDIRECTED [facility] Venlafaxine HCl (Effexor Xr) 37.5 mg PO DAILY [facility] Last Admin: 08/28/17 09:11 Dose: 37.5 mg Zolpidem Tartrate (Ambien) 5 mg PO BEDTIME PRN PRN Reason: Sleep Discontinued Medications Enoxaparin Sodium (Lovenox) 40 mg SUBCUT DAILY [facility] Last Admin: 08/27/17 11:56 Dose: Not Given - Exam General: Alert, Oriented Neck: Supple Lungs: Clear to Auscultation, Normal Respiratory Effort Cardiovascular: Regular Rate, Regular Rhythm GI/Abdominal Exam: Normal Bowel Sounds Extremities: No Pedal Edema Skin: Warm, Other (Areas of erythema on the left buttock. Marked borders.) - Problem List & Annotations (1) Cellulitis of buttock SNOMED Code(s): 47700612 Code(s): L03.317 - CELLULITIS OF BUTTOCK Status: Acute Current Visit: Yes (2) Thrombocytopenia SNOMED Code(s): 249117020 Code(s): D69.6 - THROMBOCYTOPENIA, UNSPECIFIED Status: Acute Current Visit: No - Problem List Review Problem List Initiated/Reviewed/Updated: Yes - My Orders Last 24 Hours: My Active Orders 08/27/17 11:00 Vancomycin 1.5 gm Sodium Chloride 0.9% [Normal Saline] 500 ml IV Q8H 08/28/17 18:30 VANCOMYCIN TROUGH [CHEM] Routine - Plan Plan:: 37-year-old with a history of frequent cellulitis. History of MRSA cellulitis. Recently finished IV vancomycin treatment for a buttock cellulitis. 1. Presented with a new area of redness. Pending blood cultures Continue Zosyn and vancomycin empirically Monitor symptoms and the area of redness Suggested to follow up with infectious disease specialist for prevention strategies and evaluation The patient has a difficult IV access We will try to obtain a PICC line Chronic thrombocytopenia We'll monitor DVT prophylaxis will be with SCDs and mobilization Chronic pain with chronic continuous narcotic use Continue oxycodone as needed
[2017-08-28] MEDS: Potassium Chloride 10 MEQ Tab.ER PO SCH (20:44)
[2017-08-29] MEDS: Sodium Chloride 0.9% 10 ML Syringe FLUSH PRN ×8 (00:16→23:46)
[2017-08-29] MEDS: Vancomycin 1.5 GM in Sodium Chloride 0.9% 500 ML IV SCH ×3 (03:21→18:13)
[2017-08-29] MEDS: Piperacillin/Tazobactam 3.375 GM in Sodium Chloride 0.9% 100 ML IV SCH ×4 (05:15→23:46)
[2017-08-29] MEDS: FUROSEMIDE 40 MG PO SCH ×2 (08:55→13:39)
[2017-08-29] MEDS: VENLAFAXINE 37.5 MG PO SCH (08:55)
[2017-08-29] MEDS: SPIRONOLACTONE 25 MG PO SCH ×2 (08:55→13:39)
--- NOTE | 2017-08-29 13:17 | PCM.PN ---
- General Info Date of Service: 08/29/17 Admission Dx/Problem (Free Text): Admission Diagnosis/Problem Admission Diagnosis/Problem Right Buttock Cellulitis Subjective Update: Pt was seen in room she is feeling better, still has Rt Buttock pain but she does not want morphine, No nausea or vomiting, No fever or chill Functional Status: Reports: Pain Controlled, Tolerating Diet, Ambulating, Urinating - Review of Systems General: Reports: Appetite (good). Denies: Fever, Chills HEENT: Denies: Headaches, Sinus Congestion, Sore Throat Pulmonary: Denies: Shortness of Breath, Cough, Sputum, Wheezing Cardiovascular: Denies: Chest Pain, Dyspnea on Exertion, Edema, Lightheadedness Gastrointestinal: Denies: Abdominal Pain, Constipation, Diarrhea, Nausea, Vomiting Genitourinary: Denies: Dysuria, Frequency, Burning, Urgency Musculoskeletal: Reports: Other (Rt buttock pain). Denies: Neck Pain, Shoulder Pain, Back Pain, Leg Pain Skin: Denies: Jaundice, Dryness, Bruising, Pruritis, Rash Neurological: Denies: Confusion, Tingling, Tremors Psychiatric: Reports: No Symptoms - Patient Data Vitals - Most Recent: Last Vital Signs Temp 36.2 C 08/29/17 08:00 Pulse 71 08/29/17 08:00 Resp 20 08/29/17 08:00 BP 128/61 08/29/17 08:00 Pulse Ox 97 08/29/17 10:00 Weight - Most Recent: 154.176 kg I&O - Last 24 Hours: Intake & Output 08/28/17 08/29/17 08/29/17 22:59 06:59 14:59 Intake Total 798 900 Output Total 3500 250 Balance -2702 650 Lab Results Last 24 Hours: Laboratory Results - last 24 hr 08/29/17 Range/Units 02:30 Vancomycin Trough 17.0 H (10-15) ug/ml Med Orders - Current: Current Medications Acetaminophen (Tylenol) 650 mg PO Q4H PRN PRN Reason: Pain (Mild 1-3)/fever Furosemide (Lasix) 60 mg PO BIDDIURETIC [facility] Last Admin: 08/29/17 08:55 Dose: 60 mg Piperacillin Sod/Tazobactam (Sod 3.375 gm/ Sodium Chloride) 100 mls @ 200 mls/ hr IV Q6HR [facility] Last Admin: 08/29/17 13:00 Dose: 200 mls/hr Vancomycin HCl 1.5 gm/ Sodium (Chloride) 500 mls @ 333.333 mls/hr IV Q8H [facility] Last Admin: 08/29/17 10:52 Dose: 333.333 mls/hr Ibuprofen (Motrin) 400 mg PO Q6H PRN PRN Reason: Pain (mild 1-3) Oxycodone HCl (Oxycodone) 2.5 mg PO Q8H PRN PRN Reason: Pain (severe 7-10) Last Admin: 08/28/17 20:45 Dose: 2.5 mg Potassium Chloride (Klor-Con 10) 20 meq PO BEDTIME [facility] Last Admin: 08/28/17 20:44 Dose: 20 meq Senna/Docusate Sodium (Senna Plus) 1 tab PO BEDTIME PRN PRN Reason: Constipation Sodium Chloride (Saline Flush) 10 ml FLUSH ASDIRECTED PRN PRN Reason: Keep Vein Open Last Admin: 08/29/17 10:52 Dose: 10 ml Spironolactone (Aldactone) 50 mg PO BIDDIURETIC [facility] Last Admin: 08/29/17 08:55 Dose: 50 mg Vancomycin HCl (Pharmacy To Dose - Vancomycin) 1 dose .XX ASDIRECTED [facility] Venlafaxine HCl (Effexor Xr) 37.5 mg PO DAILY [facility] Last Admin: 08/29/17 08:55 Dose: 37.5 mg Zolpidem Tartrate (Ambien) 5 mg PO BEDTIME PRN PRN Reason: Sleep Discontinued Medications Enoxaparin Sodium (Lovenox) 40 mg SUBCUT DAILY [facility] Last Admin: 08/27/17 11:56 Dose: Not Given - Exam Quality Assessment: DVT Prophylaxis. No: Supplemental Oxygen, Urine Catheter General: Alert, Oriented, Cooperative, No Acute Distress HEENT: Pupils Equal, Pupils Reactive, Mucous Membr. Moist/[place] Neck: Supple, No JVD, No Thyromegaly Lungs: Clear to Auscultation, Normal Respiratory Effort. No: Crackles, Rhonchi , Wheezing Cardiovascular: Regular Rate, Regular Rhythm, No Murmurs GI/Abdominal Exam: Normal Bowel Sounds, Non-Tender, Distended (protuberent). No : Guarding, Rigid, Rebound (Female) Exam: Deferred Back Exam: Normal Inspection, Full Range of Motion Extremities: Normal Inspection, No Pedal Edema Skin: Warm, Dry, Intact Neurological: No New Focal Deficit, Normal Gait, Normal Speech Psy/Mental Status: Alert, Normal Affect, Normal Mood - Problem List Review Problem List Initiated/Reviewed/Updated: Yes - Plan Plan:: 37-year-old with a history of frequent cellulitis. History of MRSA cellulitis. Recently finished IV vancomycin treatment for a buttock cellulitis. 1. Presented with a new area of redness to her Rt Buttock - blood cultures showing no growth -Continue Zosyn and vancomycin empirically -follow up with infectious disease specialist for prevention strategies and evaluation The patient has a difficult IV access We will try to obtain a PICC line and once the PICC gets place she can go home and come for IV abx infusion Chronic thrombocytopenia We'll monitor DVT prophylaxis will be with SCDs and mobilization Chronic pain with chronic continuous narcotic use Continue oxycodone as needed
[2017-08-29] MEDS: oxyCODONE 5 MG Tab PO PRN ×2 (13:39→22:21)
[2017-08-29] MEDS: Acetaminophen 325 MG Tab PO PRN (19:43)
[2017-08-29] MEDS: Potassium Chloride 10 MEQ Tab.ER PO SCH (20:45)
[2017-08-30] MEDS: Sodium Chloride 0.9% 10 ML Syringe FLUSH PRN ×7 (02:50→18:18)
[2017-08-30] MEDS: Vancomycin 1.5 GM in Sodium Chloride 0.9% 500 ML IV SCH ×3 (02:51→15:31)
[2017-08-30] MEDS: Piperacillin/Tazobactam 3.375 GM in Sodium Chloride 0.9% 100 ML IV SCH ×3 (05:21→18:18)
[2017-08-30] MEDS: SPIRONOLACTONE 25 MG PO SCH ×2 (08:48→14:15)
[2017-08-30] MEDS: FUROSEMIDE 40 MG PO SCH ×2 (08:48→14:15)
[2017-08-30] MEDS: VENLAFAXINE 37.5 MG PO SCH (08:48)
[2017-08-30] MEDS: Acetaminophen 325 MG Tab PO PRN (08:56)
[2017-08-30] MEDS ORDERED: Sodium Chloride 0.9% 10 ML Syringe FLUSH PRN (10:18)
[2017-08-30] MEDS ORDERED: Midazolam 1 MG/ML 2 ML SDV ONE (11:10)
[2017-08-30] MEDS ORDERED: fentaNYL 100 MCG/2 ML SDV ONE (11:11)
--- NOTE | 2017-08-30 11:28 | PCM.PN ---
- General Info Date of Service: 08/30/17 Admission Dx/Problem (Free Text): Admission Diagnosis/Problem Admission Diagnosis/Problem Right Buttock Cellulitis Subjective Update: Pt was seen in room she is feeling better, still has Rt Buttock pain but she does not want morphine, No nausea or vomiting, No fever or chill, will likely have PICC line placed today Functional Status: Reports: Pain Controlled, Tolerating Diet, Ambulating, Urinating - Review of Systems General: Reports: Appetite (good). Denies: Fever, Chills HEENT: Denies: Eye Pain, Sinus Congestion, Sore Throat, Visual Changes Pulmonary: Denies: Shortness of Breath, Cough, Sputum, Wheezing Cardiovascular: Denies: Chest Pain, Dyspnea on Exertion, Lightheadedness Gastrointestinal: Denies: Abdominal Pain, Diarrhea, Nausea, Vomiting Genitourinary: Denies: Dysuria, Frequency, Urgency, Flank Pain Musculoskeletal: Reports: Other (Rt buttock pain). Denies: Neck Pain, Hand Pain , Foot Pain Skin: Denies: Cyanosis, Jaundice, Bruising, Pruritis, Rash Neurological: Denies: Confusion, Numbness, Tremors Psychiatric: Reports: No Symptoms - Patient Data Vitals - Most Recent: Last Vital Signs Temp 36.2 C 08/30/17 08:00 Pulse 78 08/30/17 08:00 Resp 20 08/30/17 08:00 BP 145/97 H 08/30/17 08:00 Pulse Ox 99 08/30/17 10:00 Weight - Most Recent: 154.176 kg I&O - Last 24 Hours: Intake & Output 08/29/17 08/30/17 08/30/17 22:59 06:59 14:59 Intake Total 916 950 Output Total 4000 600 Balance -3084 350 Lab Results Last 24 Hours: Laboratory Results - last 24 hr 08/30/17 Range/Units 10:30 Vancomycin Trough 20.8 H (10-15) ug/ml Med Orders - Current: Current Medications Acetaminophen (Tylenol) 650 mg PO Q4H PRN PRN Reason: Pain (Mild 1-3)/fever Last Admin: 08/30/17 08:56 Dose: 650 mg Furosemide (Lasix) 60 mg PO BIDDIURETIC [facility] Last Admin: 08/30/17 08:48 Dose: 60 mg Piperacillin Sod/Tazobactam (Sod 3.375 gm/ Sodium Chloride) 100 mls @ 200 mls/ hr IV Q6HR [facility] Last Admin: 08/30/17 05:21 Dose: 200 mls/hr Vancomycin HCl 1.5 gm/ Sodium (Chloride) 500 mls @ 333.333 mls/hr IV Q12H [facility] Ibuprofen (Motrin) 400 mg PO Q6H PRN PRN Reason: Pain (mild 1-3) Oxycodone HCl (Oxycodone) 2.5 mg PO Q8H PRN PRN Reason: Pain (severe 7-10) Last Admin: 08/29/17 22:21 Dose: 2.5 mg Potassium Chloride (Klor-Con 10) 20 meq PO BEDTIME [facility] Last Admin: 08/29/17 20:45 Dose: 20 meq Senna/Docusate Sodium (Senna Plus) 1 tab PO BEDTIME PRN PRN Reason: Constipation Sodium Chloride (Saline Flush) 10 ml FLUSH ASDIRECTED PRN PRN Reason: Keep Vein Open Last Admin: 08/30/17 05:56 Dose: 10 ml Spironolactone (Aldactone) 50 mg PO BIDDIURETIC [facility] Last Admin: 08/30/17 08:48 Dose: 50 mg Vancomycin HCl (Pharmacy To Dose - Vancomycin) 1 dose .XX ASDIRECTED [facility] Venlafaxine HCl (Effexor Xr) 37.5 mg PO DAILY [facility] Last Admin: 08/30/17 08:48 Dose: 37.5 mg Zolpidem Tartrate (Ambien) 5 mg PO BEDTIME PRN PRN Reason: Sleep Discontinued Medications Enoxaparin Sodium (Lovenox) 40 mg SUBCUT DAILY [facility] Last Admin: 08/27/17 11:56 Dose: Not Given Fentanyl (Sublimaze) Confirm Administered Dose 100 mcg .ROUTE .STK-MED ONE Stop: 08/30/17 11:12 Vancomycin HCl 1.5 gm/ Sodium (Chloride) 500 mls @ 333.333 mls/hr IV Q8H [facility] Last Admin: 08/30/17 02:51 Dose: 333.333 mls/hr Midazolam HCl (Versed 1 Mg/Ml) Confirm Administered Dose 4 mg .ROUTE .STK-MED ONE Stop: 08/30/17 11:11 - Exam Quality Assessment: DVT Prophylaxis. No: Supplemental Oxygen, Urine Catheter General: Alert, Oriented, Cooperative, No Acute Distress HEENT: Pupils Equal, Mucous Membr. Moist/[place] Neck: Supple, No JVD, No Thyromegaly Lungs: Clear to Auscultation, Normal Respiratory Effort. No: Crackles, Wheezing Cardiovascular: Regular Rate, Regular Rhythm GI/Abdominal Exam: Normal Bowel Sounds, Soft. No: Guarding, Rebound, Tender (Female) Exam: Deferred Back Exam: Normal Inspection, Full Range of Motion Extremities: Normal Inspection, No Pedal Edema Skin: Warm, Dry, Intact Neurological: No New Focal Deficit Psy/Mental Status: Alert, Normal Affect, Normal Mood - Problem List Review Problem List Initiated/Reviewed/Updated: Yes - My Orders Last 24 Hours: My Active Orders 08/30/17 10:18 Central Line Assessment [RC] Q12H Central Line Insert Checklist [RC] ASDIRECTED Communication Order [RC] ASDIRECTED Communication Order [RC] ASDIRECTED Verify Patient Consent Obtain [RC] ASDIRECTED Chest 1V Frontal [CR] Stat May Use Line for Blood Draw [OM.PC] Routine - Plan Plan:: 37-year-old with a history of frequent cellulitis. History of MRSA cellulitis. Recently finished IV vancomycin treatment for a buttock cellulitis but came with Rt buttock cellulitis, Not followed by ID need to been by ID 1. Presented with a new area of redness to her Rt Buttock - blood cultures showing no growth -Continue IV Zosyn and vancomycin empirically -follow up with infectious disease specialist for prevention strategies and evaluation, plan to see ID after gets discharge The patient has a difficult IV access -We will try to obtain a PICC line and once the PICC gets place she can go home and come for IV abx infusion, if she gets today then will stay overnight and go home on Thursday Chronic thrombocytopenia We'll monitor -CBC in AM DVT prophylaxis will be with SCDs and mobilization Chronic pain with chronic continuous narcotic use Continue oxycodone as needed
--- NOTE | 2017-08-30 12:43 | PCM.PRNOTE ---
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 Discussed procedure with patient and both verbal and written consent were obtained. Complications, like infection and bleeding, were all discussed with patient and she agreed to the minimal risks of complications. Pt was brought to same day surgery, room RR, pre-anesthesia procedure room. Equipment gathered and properly prepared for procedure. Pt requested cath to be placed into left arm. Pt was given 2 mg of IV versed for procedure. VSS (BP 136/82, HR 79, RR 14, SpO2 95 on RA) and monitored throughout procedure. Zero oxygen required. Using full sterile barrier (mask, gown, gloves), left arm antecubital area was prepped with chloroprep and drapes immediately after RN placed tourniquet around left bicep. Using a 1% lidocaine solution, a skin wheel was placed at injection site. Using a 20 gauge IV catheter, the AC vein was accessed without difficulty. Safety needle was removed and a wire introducer was placed. At this point, the laceration was widened using a dilator. Wire and IV catheter were removed without difficulty and a [address] lucian, 55 cm PICC catheter was threaded through the dilator to the originally measured 52 cm ismael. A portable X-ray was obtained and read by virtual read within 15 minutes. The radiologist indicated the PICC line was in the superior vena cava. Dilator, and PICC wire introducer were removed and PICC line secured in placed with provided hub jacobs, tegaderm, and tape. Upon PICC line being secured, both ports provide excellent blood return and flush easily. Patient returned to room and will be monitored by RN for complications. Zero complications during procedure. PICC line instructions placed in pt chart.
[2017-08-30] MEDS: oxyCODONE 5 MG Tab PO PRN (20:48)
[2017-08-30] MEDS: Potassium Chloride 10 MEQ Tab.ER PO SCH (22:34)
[2017-08-31] MEDS: Piperacillin/Tazobactam 3.375 GM in Sodium Chloride 0.9% 100 ML IV SCH ×2 (00:30→07:18)
[2017-08-31] MEDS: Vancomycin 1.5 GM in Sodium Chloride 0.9% 500 ML IV SCH (03:23)
[2017-08-31 06:58] LABS: CHLORIDE,CL 103 mmol/L (101-111); SODIUM,NA 138 mmol/L (135-145)
[2017-08-31 08:08] VITALS: BP 145/80
[2017-08-31] MEDS: FUROSEMIDE 40 MG PO SCH (08:22)
[2017-08-31] MEDS: SPIRONOLACTONE 25 MG PO SCH (08:22)
[2017-08-31] MEDS: VENLAFAXINE 37.5 MG PO SCH (08:22)
[2017-08-31] MEDS: Acetaminophen 325 MG Tab PO PRN (08:31)
--- NOTE | 2017-08-31 09:50 | PCM.DCSUM1 ---
Discharge Summary - Hospital Course Free Text/Narrative:: 37-year-old with a history of frequent cellulitis. History of MRSA cellulitis. Recently finished IV vancomycin treatment for a buttock cellulitis but came with Rt buttock cellulitis, Not followed by ID need to been by ID 1. Presented with a new area of redness to her Rt Buttock - blood cultures showing no growth -treated with IV Zosyn and vancomycin empirically (08/27- -transfer to [facility] for eval by infectious disease specialist for prevention strategies and evaluationand treatment -picc line placed 08/30 Chronic thrombocytopenia stable DVT prophylaxis was with SCDs and mobilization Chronic pain with chronic continuous narcotic use Continue oxycodone as needed - Discharge Data Discharge Date: 08/31/17 Discharge Disposition: DC/Tfer to Acute Hospital 02 Condition: Good - Discharge Diagnosis/Problem(s) (1) Cellulitis of buttock SNOMED Code(s): 29814075 ICD Code: L03.317 - CELLULITIS OF BUTTOCK Status: Acute Current Visit: Yes (2) Thrombocytopenia SNOMED Code(s): 307097153 ICD Code: D69.6 - THROMBOCYTOPENIA, UNSPECIFIED Status: Acute Current Visit: No - Patient Instructions Diet: Heart Healthy Diet Activity: As Tolerated - Discharge Plan Home Medications: Home Meds Venlafaxine [Effexor XR] 37.5 mg PO DAILY 02/12/16 [History] Furosemide [Lasix] 60 mg PO BIDDIURETIC 30 Days tablet 06/13/17 [Rx] Potassium Chloride [Klor-Con 10] 20 meq PO BEDTIME 30 Days tab.er 06/13/17 [Rx] Spironolactone [Aldactone] 50 mg PO BIDDIURETIC 30 Days tablet 06/13/17 [Rx] oxyCODONE 2.5 mg PO Q8H PRN #10 tablet 08/08/17 [Rx] Vancomycin Pharmacy to Dose [Pharmacy to Dose - Vancomycin] 1 dose .XX ASDIRECTED each 08/31/17 [Rx] Referrals: Alma Rivera MD [Primary Care Provider] - - Discharge Summary/Plan Comment DC Time >30 min.: Yes (arranging tx. to [facility]) - Patient Data Vitals - Most Recent: Last Vital Signs Temp 36.1 C 08/31/17 08:07 Pulse 71 08/31/17 08:07 Resp 20 10/02/17 08:07 BP 145/80 H 08/31/17 08:07 Pulse Ox 99 08/31/17 08:07 Weight - Most Recent: 154.176 kg I&O - Last 24 hours: Intake & Output 08/30/17 08/31/17 08/31/17 22:59 06:59 14:59 Intake Total 520 1060 Output Total 1300 400 Balance 520 -240 -400 Lab Results - Last 24 hrs: Laboratory Results - last 24 hr 08/30/17 08/30/17 08/31/17 Range/Units 10:30 10:30 06:25 WBC 3.1 L (5.0-10.0) 10^3/uL RBC 3.96 L (4.2-5.4) 10^6/uL Hgb 13.0 (12.0-16.0) g/dL Hct 37.8 (37.0-47.0) % MCV 95.5 (80-100) fL MCH 32.8 (27.0-34.0) pg MCHC 34.4 (33.0-35.0) g/dL Plt Count 39 L* (150-450) 10^3/uL Neut % (Auto) 69.1 (42.2-75.2) % Lymph % (Auto) 15.3 L (20.5-50.1) % [place] % (Auto) 11.8 H (2-8) % Eos % (Auto) 3.5 H (1.0-3.0) % Baso % (Auto) 0.3 (0.0-1.0) % Sodium 138 (135-145) mmol/L Potassium 4.0 (3.6-5.0) mmol/L Chloride 103 (101-111) mmol/L Carbon Dioxide 30.0 (21.0-31.0) mmol/L Anion Gap 9.0 BUN 12 (7-18) mg/dL Creatinine 0.6 (0.6-1.3) mg/dL Est Cr Clr Drug Dosing 109.78 mL/min Estimated GFR (MDRD) > 60 Glucose 99 (74-105) mg/dL Calcium 9.8 (8.4-10.2) mg/dl Vancomycin Trough 20.8 H (10-15) ug/ml Med Orders - Current: Current Medications Acetaminophen (Tylenol) 650 mg PO Q4H PRN PRN Reason: Pain (Mild 1-3)/fever Last Admin: 08/31/17 08:31 Dose: 650 mg Furosemide (Lasix) 60 mg PO BIDDIURETIC [facility] Last Admin: 08/31/17 08:22 Dose: 60 mg Piperacillin Sod/Tazobactam (Sod 3.375 gm/ Sodium Chloride) 100 mls @ 200 mls/ hr IV Q6HR [facility] Last Infusion: 08/31/17 08:28 Dose: Infused Vancomycin HCl 1.5 gm/ Sodium (Chloride) 500 mls @ 333.333 mls/hr IV Q12H [facility] Last Admin: 08/31/17 03:23 Dose: 333.333 mls/hr Ibuprofen (Motrin) 400 mg PO Q6H PRN PRN Reason: Pain (mild 1-3) Oxycodone HCl (Oxycodone) 2.5 mg PO Q8H PRN PRN Reason: Pain (severe 7-10) Last Admin: 08/30/17 20:48 Dose: 2.5 mg Potassium Chloride (Klor-Con 10) 20 meq PO BEDTIME [facility] Last Admin: 08/30/17 22:34 Dose: 20 meq Senna/Docusate Sodium (Senna Plus) 1 tab PO BEDTIME PRN PRN Reason: Constipation Sodium Chloride (Saline Flush) 10 ml FLUSH ASDIRECTED PRN PRN Reason: Keep Vein Open Last Admin: 08/30/17 18:18 Dose: 10 ml Spironolactone (Aldactone) 50 mg PO BIDDIURETIC [facility] Last Admin: 08/31/17 08:22 Dose: 50 mg Vancomycin HCl (Pharmacy To Dose - Vancomycin) 1 dose .XX ASDIRECTED [facility] Venlafaxine HCl (Effexor Xr) 37.5 mg PO DAILY [facility] Last Admin: 08/31/17 08:22 Dose: 37.5 mg Zolpidem Tartrate (Ambien) 5 mg PO BEDTIME PRN PRN Reason: Sleep Discontinued Medications Enoxaparin Sodium (Lovenox) 40 mg SUBCUT DAILY [facility] Last Admin: 08/27/17 11:56 Dose: Not Given Fentanyl (Sublimaze) Confirm Administered Dose 100 mcg .ROUTE .STK-MED ONE Stop: 08/30/17 11:12 Vancomycin HCl 1.5 gm/ Sodium (Chloride) 500 mls @ 333.333 mls/hr IV Q8H ALEXANDRA Last Admin: 08/30/17 13:24 Dose: Not Given Midazolam HCl (Versed 1 Mg/Ml) Confirm Administered Dose 4 mg .ROUTE .ST-MED ONE Stop: 08/30/17 11:11 *Q Meaningful Use (DIS) - VTE *Q VTE Criteria *Q: - Stroke *Q Stroke Criteria *Q: - AMI *Q AMI Criteria *Q:
[2017-08-31] MEDS: oxyCODONE 5 MG Tab PO PRN (09:58)
[2017-08-31] MEDS ORDERED: Sodium Chloride 0.9% 10 ML Syringe IV ONE (10:29)
[2017-08-31] MEDS ORDERED: Midazolam 1 MG/ML 2 ML SDV IV ONE (10:29)
== END 2017-08-31 10:30 | DRG 383 ==
LOC: DL.ED 07:51 → DL.MS 08:56 → UNDOADMIN 08:56 → DL.MS 10:21
PROVIDERS: ADMIT Internal Medicine; ATTEND Internal Medicine
PROC: 02HV33Z Insertion of Infusion Device into Superior Vena Cava, Percutaneous Approach (ICD-10-PCS; principal; 2017-08-30)
PROC: 3E04329 Introduction of Other Anti-infective into Central Vein, Percutaneous Approach (ICD-10-PCS; 2017-08-30)
DX: L03.317 Cellulitis of buttock (principal); I10 Essential (primary) hypertension; G47.30 Sleep apnea, unspecified; K76.6 Portal hypertension; F41.8 Other specified anxiety disorders; E53.8 Deficiency of other specified B group vitamins; D69.6 Thrombocytopenia, unspecified; G89.29 Other chronic pain; Z79.891 Long term (current) use of opiate analgesic; Z86.14 Personal history of Methicillin resistant Staphylococcus aureus infection; Z88.1 Allergy status to other antibiotic agents; Z88.6 Allergy status to analgesic agent; Z79.899 Other long term (current) drug therapy; Z87.891 Personal history of nicotine dependence
CPT/HCPCS: 36415; 80048; 80053; 80202; 83605; 85025; 86803; 87040; 87340; 87389; 99284; A9270-GY; J2250; J2543; J3370; J7040; J7050

== ENCOUNTER 2017-10-01 08:27 | Emergency (ER) | payer BC ==
[2017-10-01 08:43] VITALS: BP 147/73
[2017-10-01] MEDS ORDERED: Sodium Chloride 0.9% 10 ML Syringe FLUSH PRN (09:07)
--- NOTE | 2017-10-01 09:10 | EDM.PDOC ---
ED HPI GENERAL MEDICAL PROBLEM - General Chief Complaint: Skin Complaint Stated Complaint: CELLULITIOUS Time Seen by Provider: 10/01/17 09:00 Source of Information: Reports: Patient, RN, RN Notes Reviewed History Limitations: Reports: No Limitations - History of Present Illness INITIAL COMMENTS - FREE TEXT/NARRATIVE: Pt presents to the ER with c/o a large cellulitis on the right buttock. She states she struggles frequently with abscess and cellulitis areas. She does doctor with Dr. Prather in infectious diseases at [facility]. She states she noticed a spot that she felt was a pimple at around 2am today. She states the spot was the size of a half dollar, and in just 4 hours the area has grown immensely. She states she has had nausea, chills, and a headache this morning. She denies vomiting or diarrhea, and is unaware if she had a fever at home. She states she has taken an oxycodone at home at 2am today. She states she feels she may be somewhat constipated from the pain meds, and she also tries not to take many medications due to liver problems. 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) Back Pain Score (Numeric/FACES): 5 - Related Data Allergies Allergy/AdvReac Type Severity Reaction Status Date / Time cephalexin monohydrate Allergy Severe Hives Verified 10/01/17 08:36 [From Keflex] adhesive Allergy Intermediate Hives Verified 10/01/17 08:36 hydrocodone Allergy Mild Nausea and Verified 10/01/17 08:36 Vomiting vancomycin Allergy Hives Verified 10/01/17 08:36 erythromycin base AdvReac Severe Nausea and Verified 10/01/17 08:36 [Erythromycin Base] Vomiting Home Meds: Home Meds Venlafaxine [Effexor XR] 37.5 mg PO DAILY 02/12/16 [History] Furosemide [Lasix] 60 mg PO BIDDIURETIC 30 Days tablet 06/13/17 [Rx] Spironolactone [Aldactone] 50 mg PO BIDDIURETIC 30 Days tablet 06/13/17 [Rx] oxyCODONE 2.5 mg PO Q8H PRN #10 tablet 08/08/17 [Rx] Naproxen [Naprosyn] 500 mg PO BIDMEALS 09/05/17 [History] Pantoprazole Sodium [Protonix] 40 mg PO BEDTIME 09/05/17 [History] Potassium Chloride [Klor-Con 10] 20 meq PO QAM 09/05/17 [History] Past Medical History HEENT History: Reports: Impaired Vision, Other (See Below) Other HEENT History: wears glasses Cardiovascular History: Reports: Blood Clots/VTE/DVT, Hypertension, Other (See Below) Other Cardiovascular History: edema BLE Respiratory History: Reports: Sleep Apnea Gastrointestinal History: Reports: Cirrhosis, Other (See Below) Other Gastrointestinal History: Non-alcoholic fatty liver disease, PORTAL HYPERTENSION Genitourinary History: Reports: Acute Renal Failure DRIVER History: Reports: Endometriosis, Other (See Below) Other OB/BYN History: PRE CANCEROUS CERVICAL CELLS, RESULTED IN PARTIAL HYSTERECTOMY Musculoskeletal History: Reports: None Neurological History: Reports: None Psychiatric History: Reports: Anxiety, Depression Endocrine/Metabolic History: Reports: Obesity/BMI 30+ Hematologic History: Reports: B12 Deficiency, Blood Transfusion(s), Idiopathic Thrombocytopenia, Other (See Below) Other Hematologic History: VIT D DEFICIENCY,low platlets count Immunologic History: Reports: None Oncologic (Cancer) History: Reports: Other (See Below) Other Oncologic History: PRECANCEROUS CELLS UTERINE Dermatologic History: Reports: Chronic Cellulitis, Psoriasis Other Dermatologic History: RLE CELLULITIS - Infectious Disease History Infectious Disease History: Reports: MRSA - Past Surgical History HEENT Surgical History: Reports: Myringotomy w Tube(s) Respiratory Surgical History: Reports: None GI Surgical History: Reports: Bariatric Procedure, Colonoscopy, EGD Female Surgical History: Reports: Hysterectomy Endocrine Surgical History: Reports: None Neurological Surgical History: Reports: None Musculoskeletal Surgical History: Reports: None Oncologic Surgical History: Reports: Other (See Below) Other Oncologic Surgeries/Procedures: hysterectomy Dermatological Surgical History: Reports: None Social & Family History - Family History Family Medical History: Noncontributory Cardiac: Respiratory: GI: Reports: Other (See Below) Neurological: Psychiatric: Hematologic: - Tobacco Use Smoking Status *Q: Never Smoker Years of Tobacco use: 10 Packs/Tins Daily: 0.1 Used Tobacco, but Quit: No Month Tobacco Last Used: june Second Hand Smoke Exposure: No - Caffeine Use Caffeine Use: Reports: None - Alcohol Use Days Per Week of Alcohol Use: 1 Number of Drinks Per Day: 2 Total Drinks Per Week: 2 - Recreational Drug Use Recreational Drug Use: No Drug Use in Last 12 Months: No ED ROS GENERAL - Review of Systems Review Of Systems: ROS reveals no pertinent complaints other than HPI. ED EXAM, SKIN/RASH Exam: See Below Exam Limited By: No Limitations General Appearance: Alert, WD/WN, No Apparent Distress Eye Exam: Bilateral Eye: Normal Inspection Ears: Normal External Exam, Normal Canal, Hearing Grossly Normal, Normal TMs Nose: Normal Inspection Throat/Mouth: Normal Inspection, Normal Oropharynx, Normal Voice, No Airway Compromise Head: Atraumatic, Normocephalic Neck: Normal Inspection, Supple, Non-Tender, Full Range of Motion Respiratory/Chest: No Respiratory Distress, Lungs Clear, Normal Breath Sounds, No Accessory Muscle Use, Chest Non-Tender Cardiovascular: Normal Peripheral Pulses, Regular Rate, Rhythm, No Edema, No Gallop, No JVD, No Murmur, No Rub Peripheral Pulses: 2+: Radial (L), Radial (R) GI/Abdominal: Normal Bowel Sounds, Soft, Non-Tender, No Organomegaly, No Distention, No Abnormal Bruit, No Mass (Female) Exam: Deferred Rectal (Female) Exam: Deferred Back Exam: Normal Inspection, Full Range of Motion Extremities: Normal Inspection, Normal Range of Motion, Non-Tender, No Pedal Edema, Normal Capillary Refill Neurological: Alert, Oriented, Normal Cognition, Normal Gait, No Motor/Sensory Deficits Psychiatric: Normal Affect, Normal Mood Skin: Warm, Dry, Intact, Erythema (right upper buttock), Increased Warmth ( right upper buttock), Other (no crepitus, tender but not severely painful to touch) Location, Skin: Other (right upper buttock) Associated features: Warmth, Tenderness, Swelling Lymphatic: No Adenopathy Course - Vital Signs Last Recorded V/S: Last Vital Signs Temp 96 F 10/01/17 08:38 Pulse 99 10/01/17 08:38 Resp 20 10/01/17 08:38 BP 147/73 H 10/01/17 08:38 Pulse Ox 99 10/01/17 08:38 - Orders/Labs/Meds Orders: Active Orders 24 hr Category Date Time Status Peripheral IV Care [RC] . DIRECTED Care 10/01/17 09:07 Active CULTURE BLOOD [BC] Stat Lab 10/01/17 09:14 Received CULTURE BLOOD [BC] Stat Lab 10/01/17 09:20 Received Clindamycin Phosphate [Cleocin] 600 mg Med 10/01/17 10:40 Active Sodium Chloride 0.9% [Normal Saline] 100 ml IV ONETIME Sodium Chloride 0.9% [Normal Saline] 1,000 ml Med 10/01/17 10:40 Active IV .BOLUS Sodium Chloride 0.9% [Saline Flush] Med 10/01/17 09:07 Active 10 ml FLUSH ASDIRECTED PRN Blood Culture x2 Reflex Set [OM.PC] Stat Oth 10/01/17 09:07 Ordered Peripheral IV Insertion Adult [OM.PC] Stat Oth 10/01/17 09:07 Ordered Medication Orders Clindamycin Phosphate 600 mg/ (Sodium Chloride) 104 mls @ 200 mls/hr IV ONETIME ONE Stop: 10/01/17 11:11 Sodium Chloride (Normal Saline) 1,000 mls @ 125 mls/hr IV .BOLUS ONE Stop: 10/01/17 18:39 Sodium Chloride (Saline Flush) 10 ml FLUSH ASDIRECTED PRN PRN Reason: Keep Vein Open Labs: Laboratory Tests 10/01/17 10/01/17 10/01/17 Range/Units 09:20 09:20 09:20 WBC 11.7 H (5.0-10.0) 10^3/uL RBC 4.12 L (4.2-5.4) 10^6/uL Hgb 13.6 (12.0-16.0) g/dL Hct 38.4 (37.0-47.0) % MCV 93.2 (80-100) fL MCH 33.0 (27.0-34.0) pg MCHC 35.4 H (33.0-35.0) g/dL Plt Count 36 L* (150-450) 10^3/uL Neut % (Auto) 92.1 H (42.2-75.2) % Lymph % (Auto) 1.9 L (20.5-50.1) % [place] % (Auto) 5.8 (2-8) % Eos % (Auto) 0.1 L (1.0-3.0) % Baso % (Auto) 0.1 (0.0-1.0) % PT (9.0-12.0) SEC INR (0.9-1.2) Sodium 134 L (135-145) mmol/L Potassium 3.5 L (3.6-5.0) mmol/L Chloride 103 (101-111) mmol/L Carbon Dioxide 22.0 (21.0-31.0) mmol/L Anion Gap 12.5 BUN 9 (7-18) mg/dL Creatinine 0.6 (0.6-1.3) mg/dL Est Cr Clr Drug Dosing 114.40 mL/min Estimated GFR (MDRD) > 60 BUN/Creatinine Ratio 15.00 Glucose 146 H (74-105) mg/dL Calcium 9.7 (8.4-10.2) mg/dl Total Bilirubin 4.3 H (0.2-1.0) mg/dL AST 50 H (10-42) IU/L ALT 24 (10-60) IU/L Alkaline Phosphatase 108 (42-121) IU/L C-Reactive Protein 0.8 (0.0-1.3) mg/dL Total Protein 6.4 L (6.7-8.2) g/dl Albumin 3.1 L (3.2-5.5) g/dl Globulin 3.3 Albumin/Globulin Ratio 0.94 10/01/17 Range/Units 09:20 WBC (5.0-10.0) 10^3/uL RBC (4.2-5.4) 10^6/uL Hgb (12.0-16.0) g/dL Hct (37.0-47.0) % MCV (80-100) fL MCH (27.0-34.0) pg MCHC (33.0-35.0) g/dL Plt Count (150-450) 10^3/uL Neut % (Auto) (42.2-75.2) % Lymph % (Auto) (20.5-50.1) % [place] % (Auto) (2-8) % Eos % (Auto) (1.0-3.0) % Baso % (Auto) (0.0-1.0) % PT 14.3 H (9.0-12.0) SEC INR 1.4 H (0.9-1.2) Sodium (135-145) mmol/L Potassium (3.6-5.0) mmol/L Chloride (101-111) mmol/L Carbon Dioxide (21.0-31.0) mmol/L Anion Gap BUN (7-18) mg/dL Creatinine (0.6-1.3) mg/dL Est Cr Clr Drug Dosing mL/min Estimated GFR (MDRD) BUN/Creatinine Ratio Glucose (74-105) mg/dL Calcium (8.4-10.2) mg/dl Total Bilirubin (0.2-1.0) mg/dL AST (10-42) IU/L ALT (10-60) IU/L Alkaline Phosphatase (42-121) IU/L C-Reactive Protein (0.0-1.3) mg/dL Total Protein (6.7-8.2) g/dl Albumin (3.2-5.5) g/dl Globulin Albumin/Globulin Ratio Meds: Medications Generic Name Dose Route Start Last Admin Trade Name Freq PRN Reason Stop Dose Admin Clindamycin Phosphate 600 mg/ 104 mls @ 200 mls/hr 10/01/17 10:40 Sodium Chloride IV 10/01/17 11:11 ONETIME ONE Sodium Chloride 1,000 mls @ 125 mls/hr 10/01/17 10:40 Normal Saline IV 10/01/17 18:39 .BOLUS ONE Sodium Chloride 10 ml 10/01/17 09:07 Saline Flush FLUSH ASDIRECTED PRN Keep Vein Open - Re-Assessments/Exams Free Text/Narrative Re-Assessment/Exam: 10/01/17 10:07 [facility] One call called at [phone]. One call nurse states she would call us right back. 10/01/17 10:43 Patient accepted at [address] Joaquin at [facility] for further care. This was discussed with the patient. Departure - Departure Time of Disposition: 10:32 Disposition: DC/Tfer to Acute Hospital 02 Condition: Fair Clinical Impression: Thrombocytopenia Cellulitis Qualifiers: Site of cellulitis: buttock Qualified Code(s): L03.317 - Cellulitis of buttock - Discharge Information Forms: ED Department Discharge, Interfacility Transfer EMTALA - My Orders Last 24 Hours: My Active Orders 10/01/17 09:07 Peripheral IV Care [RC] . DIRECTED Sodium Chloride 0.9% [Saline Flush] 10 ml FLUSH ASDIRECTED PRN Blood Culture x2 Reflex Set [OM.PC] Stat Peripheral IV Insertion Adult [OM.PC] Stat 10/01/17 09:14 CULTURE BLOOD [BC] Stat 10/01/17 09:20 CULTURE BLOOD [BC] Stat 10/01/17 10:40 Clindamycin Phosphate [Cleocin] 600 mg Sodium Chloride 0.9% [Normal Saline] 100 ml IV ONETIME Sodium Chloride 0.9% [Normal Saline] 1,000 ml IV .BOLUS - Assessment/Plan Last 24 Hours: My Active Orders 10/01/17 09:07 Peripheral IV Care [RC] . DIRECTED Sodium Chloride 0.9% [Saline Flush] 10 ml FLUSH ASDIRECTED PRN Blood Culture x2 Reflex Set [OM.PC] Stat Peripheral IV Insertion Adult [OM.PC] Stat 10/01/17 09:14 CULTURE BLOOD [BC] Stat 10/01/17 09:20 CULTURE BLOOD [BC] Stat 10/01/17 10:40 Clindamycin Phosphate [Cleocin] 600 mg Sodium Chloride 0.9% [Normal Saline] 100 ml IV ONETIME Sodium Chloride 0.9% [Normal Saline] 1,000 ml IV .BOLUS
[2017-10-01 09:52] LABS: CHLORIDE,CL 103 mmol/L (101-111); SODIUM,NA 134 mmol/L (135-145)
[2017-10-01] MEDS ORDERED: Sodium Chloride 0.9% 1,000 ML IV ONE (10:40)
[2017-10-01] MEDS ORDERED: Clindamycin Phosphate 600 MG in Sodium Chloride 0.9% 100 ML IV ONE (10:40)
[2017-10-01] MEDS ORDERED: Ondansetron 4 MG/2 ML SDV IV ONE (10:47)
[2017-10-01] MEDS ORDERED: Acetaminophen 325 MG Tab PO ONE (10:47)
== END 2017-10-01 11:05 ==
LOC: DL.ED 08:27
DX: L03.317 Cellulitis of buttock (principal); D69.6 Thrombocytopenia, unspecified; Z88.1 Allergy status to other antibiotic agents; Z88.5 Allergy status to narcotic agent; Z79.899 Other long term (current) drug therapy
CPT/HCPCS: 36415; 80053; 85025; 85610; 86140; 87040; 96374; 96375; 99284; A9270; J2405; J7030; J7050; S0077

== ENCOUNTER 2018-02-08 20:04 | Inpatient (IN) | payer BC, OTHER ==
[2018-02-08] MEDS ORDERED: Sodium Chloride 0.9% 10 ML Syringe FLUSH PRN (21:18)
[2018-02-08 22:10] LABS: CHLORIDE,CL 105 mmol/L (101-111); SODIUM,NA 139 mmol/L (135-145)
--- NOTE | 2018-02-08 22:25 | EDM.PDOC ---
ED HPI GENERAL MEDICAL PROBLEM - General Chief Complaint: Skin Complaint Stated Complaint: [id number] cellulitus Time Seen by Provider: 02/08/18 21:00 Source of Information: Reports: Patient, RN, RN Notes Reviewed History Limitations: Reports: No Limitations - History of Present Illness Onset: Today Location: Reports: Back Quality: Reports: Burning, Throbbing Severity: Moderate Improves with: Reports: None Worsens with: Reports: None Associated Symptoms: Reports: No Other Symptoms Right Sacral Pain Score (Numeric/FACES): 4 - Related Data Allergies Allergy/AdvReac Type Severity Reaction Status Date / Time cephalexin monohydrate Allergy Severe Hives Verified 02/08/18 22:43 [From Keflex] adhesive Allergy Intermediate Hives Verified 02/08/18 22:43 hydrocodone Allergy Mild Nausea and Verified 02/08/18 22:43 Vomiting erythromycin base AdvReac Severe Nausea and Verified 02/08/18 22:43 [Erythromycin Base] Vomiting Home Meds: Home Meds Venlafaxine [Effexor XR] 37.5 mg PO DAILY 02/12/16 [History] Furosemide [Lasix] 60 mg PO BIDDIURETIC 30 Days tablet 06/13/17 [Rx] Spironolactone [Aldactone] 50 mg PO BIDDIURETIC 30 Days tablet 06/13/17 [Rx] oxyCODONE 2.5 mg PO Q8H PRN #10 tablet 08/08/17 [Rx] Doxycycline [Vibramycin] 100 mg PO BID 02/08/18 [History] Past Medical History HEENT History: Reports: Impaired Vision, Other (See Below) Other HEENT History: wears glasses Cardiovascular History: Reports: Blood Clots/VTE/DVT, Hypertension, Other (See Below) Other Cardiovascular History: edema BLE Respiratory History: Reports: Sleep Apnea Gastrointestinal History: Reports: Cirrhosis, Other (See Below) Other Gastrointestinal History: Non-alcoholic fatty liver disease, PORTAL HYPERTENSION Genitourinary History: Reports: Acute Renal Failure [employer] History: Reports: Endometriosis, Other (See Below) Other OB/BYN History: PRE CANCEROUS CERVICAL CELLS, RESULTED IN PARTIAL HYSTERECTOMY Musculoskeletal History: Reports: None Neurological History: Reports: None Psychiatric History: Reports: Anxiety, Depression Endocrine/Metabolic History: Reports: Obesity/BMI 30+ Hematologic History: Reports: B12 Deficiency, Blood Transfusion(s), Idiopathic Thrombocytopenia, Other (See Below) Other Hematologic History: VIT D DEFICIENCY,low platlets count Immunologic History: Reports: None Oncologic (Cancer) History: Reports: Other (See Below) Other Oncologic History: PRECANCEROUS CELLS UTERINE Dermatologic History: Reports: Chronic Cellulitis, Psoriasis Other Dermatologic History: RLE CELLULITIS - Infectious Disease History Infectious Disease History: Reports: Chicken Pox, MRSA - Past Surgical History HEENT Surgical History: Reports: Myringotomy w Tube(s) Respiratory Surgical History: Reports: None GI Surgical History: Reports: Bariatric Procedure, Colonoscopy, EGD Female Surgical History: Reports: Hysterectomy Endocrine Surgical History: Reports: None Neurological Surgical History: Reports: None Musculoskeletal Surgical History: Reports: None Oncologic Surgical History: Reports: Other (See Below) Other Oncologic Surgeries/Procedures: hysterectomy Dermatological Surgical History: Reports: None Social & Family History - Family History Family Medical History: Noncontributory Cardiac: Respiratory: GI: Reports: Other (See Below) Neurological: Psychiatric: Hematologic: - Tobacco Use Smoking Status *Q: Never Smoker Years of Tobacco use: 10 Packs/Tins Daily: 0.1 Used Tobacco, but Quit: No Month Tobacco Last Used: june Second Hand Smoke Exposure: No - Caffeine Use Caffeine Use: Reports: None - Alcohol Use Days Per Week of Alcohol Use: 1 Number of Drinks Per Day: 2 Total Drinks Per Week: 2 - Recreational Drug Use Recreational Drug Use: No Drug Use in Last 12 Months: No ED ROS GENERAL - Review of Systems Review Of Systems: ROS reveals no pertinent complaints other than HPI. ED EXAM, SKIN/RASH Exam: See Below Exam Limited By: No Limitations General Appearance: Alert, WD/WN, No Apparent Distress Eye Exam: Bilateral Eye: EOMI, Normal Inspection Ears: Normal External Exam, Hearing Grossly Normal Nose: Normal Inspection Throat/Mouth: Normal Inspection, Normal Voice, No Airway Compromise Head: Atraumatic, Normocephalic Neck: Normal Inspection, Supple, Non-Tender, Full Range of Motion Respiratory/Chest: No Respiratory Distress, Lungs Clear, Normal Breath Sounds, No Accessory Muscle Use, Chest Non-Tender Cardiovascular: Normal Peripheral Pulses, Regular Rate, Rhythm, No Gallop, No JVD, No Murmur, No Rub, Other (bilateral minimal lower leg edema) Peripheral Pulses: 2+: Radial (L), Radial (R), Dorsalis Pedis (L), Dorsalis Pedis (R) GI/Abdominal: Normal Bowel Sounds, Soft, Non-Tender, No Abnormal Bruit, No Mass (Female) Exam: Deferred Rectal (Female) Exam: Deferred Back Exam: Normal Inspection, Full Range of Motion Extremities: Normal Inspection, Normal Range of Motion, No Pedal Edema, Normal Capillary Refill, Other (tenderness to left lower leg, burning to the area, minimal erythema) Neurological: Alert, Oriented, CN II-XII Intact, Normal Cognition, Normal Gait, Normal Reflexes, No Motor/Sensory Deficits Psychiatric: Normal Affect, Normal Mood Skin: Warm, Dry, Erythema (minmal), Increased Warmth. No: Intact (area in the center of induration that has been scratched by the patient, superficial scratch ) Location, Skin: Other (right buttock) Associated features: Warmth, Tenderness, Induration (minimal). No: Inflammation , Crusting, Weeping Lymphatic: No Adenopathy Course - Vital Signs Last Recorded V/S: Last Vital Signs Temp 97.8 F 02/08/18 22:51 Pulse 98 02/08/18 22:51 Resp 18 02/08/18 22:51 BP 156/97 H 02/08/18 22:51 Pulse Ox 98 02/08/18 22:51 - Orders/Labs/Meds Orders: Active Orders 24 hr Category Date Time Status CULTURE BLOOD [BC] Stat Lab 02/08/18 21:39 Received CULTURE BLOOD [BC] Stat Lab 02/08/18 21:44 Received Doxycycline [Vibramycin] Med 02/09/18 09:00 Active 100 mg PO BID Furosemide [Lasix] Med 02/09/18 08:00 Active 60 mg PO BIDDIURETIC Sodium Chloride 0.9% [Saline Flush] Med 02/08/18 21:18 Active 10 ml FLUSH ASDIRECTED PRN Spironolactone [Aldactone] Med 02/09/18 08:00 Active 50 mg PO BIDDIURETIC Vancomycin Pharmacy to Dose [Pharmacy to Dose - Med 02/08/18 23:00 Pending Vancomycin] 1 dose .XX ASDIRECTED Venlafaxine [Effexor XR] Med 02/09/18 09:00 Active 37.5 mg PO DAILY oxyCODONE Med 02/08/18 22:48 Active 2.5 mg PO Q8H PRN Blood Culture x2 Reflex Set [OM.PC] Stat Oth 02/08/18 21:19 Ordered Peripheral IV Insertion Adult [OM.PC] Stat Oth 02/08/18 21:18 Ordered Medication Orders Doxycycline Hyclate (Vibramycin) 100 mg PO BID [facility] Furosemide (Lasix) 60 mg PO BIDDIURETIC [facility] Vancomycin HCl 1.5 gm/ Sodium (Chloride) 500 mls @ 333.333 mls/hr IV Q8H [facility] Last Admin: 02/08/18 23:46 Dose: 200 mls/hr Oxycodone HCl (Oxycodone) 2.5 mg PO Q8H PRN PRN Reason: Pain (severe 7-10) Sodium Chloride (Saline Flush) 10 ml FLUSH ASDIRECTED PRN PRN Reason: Keep Vein Open Spironolactone (Aldactone) 50 mg PO BIDDIURETIC [facility] Vancomycin HCl (Pharmacy To Dose - Vancomycin) 1 dose .XX ASDIRECTED [facility] Venlafaxine HCl (Effexor Xr) 37.5 mg PO DAILY [facility] Zolpidem Tartrate (Ambien) 5 mg PO BEDTIME PRN PRN Reason: Sleep Labs: Laboratory Tests 02/08/18 02/08/18 02/08/18 Range/Units 21:39 21:39 21:39 WBC 4.1 L (5.0-10.0) 10^3/uL RBC 4.11 L (4.2-5.4) 10^6/uL Hgb 13.6 (12.0-16.0) g/dL Hct 39.7 (37.0-47.0) % MCV 96.6 D (80-100) fL MCH 33.1 (27.0-34.0) pg MCHC 34.3 (33.0-35.0) g/dL Plt Count 38 L* (150-450) 10^3/uL Neut % (Auto) 76.8 H (42.2-75.2) % Lymph % (Auto) 14.3 L (20.5-50.1) % [place] % (Auto) 7.5 (2-8) % Eos % (Auto) 1.2 (1.0-3.0) % Baso % (Auto) 0.2 (0.0-1.0) % Sodium 139 (135-145) mmol/L Potassium 3.3 L (3.6-5.0) mmol/L Chloride 105 (101-111) mmol/L Carbon Dioxide 29.0 (21.0-31.0) mmol/L Anion Gap 8.3 BUN 9 (7-18) mg/dL Creatinine 0.6 (0.6-1.3) mg/dL Est Cr Clr Drug Dosing 114.40 mL/min Estimated GFR (MDRD) > 60 BUN/Creatinine Ratio 15.00 Glucose 150 H (74-105) mg/dL Lactic Acid 2.2 (0.5-2.2) mmol/L Calcium 10.0 (8.4-10.2) mg/dl Total Bilirubin 2.5 H (0.2-1.0) mg/dL AST 51 H (10-42) IU/L ALT 24 (10-60) IU/L Alkaline Phosphatase 145 H (42-121) IU/L Total Protein 5.9 L (6.7-8.2) g/dl Albumin 2.9 L (3.2-5.5) g/dl Globulin 3.0 Albumin/Globulin Ratio 0.97 Meds: Medications Generic Name Dose Route Start Last Admin Trade Name Freq PRN Reason Stop Dose Admin Doxycycline Hyclate 100 mg 02/09/18 09:00 Vibramycin PO BID [facility] Furosemide 60 mg 02/09/18 08:00 Lasix PO BIDDIURETIC [facility] Vancomycin HCl 1.5 gm/ Sodium 500 mls @ 333.333 mls/hr 02/08/18 23:30 23:46 Chloride IV 200 mls/hr Q8H [facility]A Administration Oxycodone HCl 2.5 mg 02/08/18 22:48 Oxycodone PO Q8H PRN Pain (severe 7-10) Sodium Chloride 10 ml 02/08/18 21:18 Saline Flush FLUSH ASDIRECTED PRN Keep Vein Open Spironolactone 50 mg 02/09/18 08:00 Aldactone PO BIDDIURETIC [facility] Vancomycin HCl 1 dose 02/08/18 23:00 Pharmacy To Dose - Vancomycin .XX ASDIRECTED [facility] Venlafaxine HCl 37.5 mg 02/09/18 09:00 Effexor Xr PO DAILY [facility] Zolpidem Tartrate 5 mg 02/08/18 22:51 Ambien PO BEDTIME PRN Sleep - Re-Assessments/Exams Free Text/Narrative Re-Assessment/Exam: 02/08/18 22:25 Discussed Pt case with Dr. Joaquin. He is familiar with the patient and her medical history. He agrees to accept the patient to inpatient care for IV antibiotics. Departure - Departure Time of Disposition: 22:24 Disposition: Admitted As Inpatient 65 Condition: Fair Clinical Impression: Cellulitis - Discharge Information - My Orders Last 24 Hours: My Active Orders 02/08/18 21:18 Sodium Chloride 0.9% [Saline Flush] 10 ml FLUSH ASDIRECTED PRN Peripheral IV Insertion Adult [OM.PC] Stat 02/08/18 21:19 Blood Culture x2 Reflex Set [OM.PC] Stat 02/08/18 21:39 CULTURE BLOOD [BC] Stat 02/08/18 21:44 CULTURE BLOOD [BC] Stat - Assessment/Plan Last 24 Hours: My Active Orders 02/08/18 21:18 Sodium Chloride 0.9% [Saline Flush] 10 ml FLUSH ASDIRECTED PRN Peripheral IV Insertion Adult [OM.PC] Stat 02/08/18 21:19 Blood Culture x2 Reflex Set [OM.PC] Stat 02/08/18 21:39 CULTURE BLOOD [BC] Stat 02/08/18 21:44 CULTURE BLOOD [BC] Stat
[2018-02-08] MEDS ORDERED: oxyCODONE 5 MG Tab PO PRN (22:48)
[2018-02-08] MEDS ORDERED: Zolpidem 5 MG Tab PO PRN (22:51)
--- NOTE | 2018-02-08 23:00 | PCM.HP ---
H&P History of Present Illness - General Date of Service: 02/08/18 Admit Problem/Dx: Admission Diagnosis/Problem Admission Diagnosis/Problem Cellulitis Source of Information: Patient - History of Present Illness Initial Comments - Free Text/Narative: The patient is a 37-year-old lady with a history of recurrent MRSA cellulitis. She has a history of thrombocytopenia. She has been on doxycycline 50 mg twice a day prophylactic doses. She scratched her right buttock yesterday and then increasing pain and warmth in the area. There was no associated fever, no nausea or vomiting. No chest pain, no diarrhea. Right Sacral Pain Score (Numeric/FACES): 4 - Related Data Allergies/Adverse Reactions: Allergies Allergy/AdvReac Type Severity Reaction Status Date / Time cephalexin monohydrate Allergy Severe Hives Verified 02/08/18 22:43 [From Keflex] adhesive Allergy Intermediate Hives Verified 02/08/18 22:43 hydrocodone Allergy Mild Nausea and Verified 02/08/18 22:43 Vomiting erythromycin base AdvReac Severe Nausea and Verified 02/08/18 22:43 [Erythromycin Base] Vomiting Home Medications: Home Meds Venlafaxine [Effexor XR] 37.5 mg PO DAILY 02/12/16 [History] Furosemide [Lasix] 60 mg PO BIDDIURETIC 30 Days tablet 06/13/17 [Rx] Spironolactone [Aldactone] 50 mg PO BIDDIURETIC 30 Days tablet 06/13/17 [Rx] oxyCODONE 2.5 mg PO Q8H PRN #10 tablet 08/08/17 [Rx] Doxycycline [Vibramycin] 50 mg PO BID 02/08/18 [History] Past Medical History HEENT History: Reports: Impaired Vision, Other (See Below) Other HEENT History: wears glasses Cardiovascular History: Reports: Blood Clots/VTE/DVT, Hypertension, Other (See Below) Other Cardiovascular History: edema BLE Respiratory History: Reports: Sleep Apnea Gastrointestinal History: Reports: Cirrhosis, Other (See Below) Other Gastrointestinal History: Non-alcoholic fatty liver disease, PORTAL HYPERTENSION Genitourinary History: Reports: Acute Renal Failure [employer] O[employer] History: Reports: Endometriosis, Other (See Below) Other OB/BYN History: PRE CANCEROUS CERVICAL CELLS, RESULTED IN PARTIAL HYSTERECTOMY Musculoskeletal History: Reports: None Neurological History: Reports: None Psychiatric History: Reports: Anxiety, Depression Endocrine/Metabolic History: Reports: Obesity/BMI 30+ Hematologic History: Reports: B12 Deficiency, Blood Transfusion(s), Idiopathic Thrombocytopenia, Other (See Below) Other Hematologic History: VIT D DEFICIENCY,low platlets count Immunologic History: Reports: None Oncologic (Cancer) History: Reports: Other (See Below) Other Oncologic History: PRECANCEROUS CELLS UTERINE Dermatologic History: Reports: Chronic Cellulitis, Psoriasis Other Dermatologic History: RLE CELLULITIS - Infectious Disease History Infectious Disease History: Reports: Chicken Pox, MRSA - Past Surgical History HEENT Surgical History: Reports: Myringotomy w Tube(s) Respiratory Surgical History: Reports: None GI Surgical History: Reports: Bariatric Procedure, Colonoscopy, EGD Female Surgical History: Reports: Hysterectomy Endocrine Surgical History: Reports: None Neurological Surgical History: Reports: None Musculoskeletal Surgical History: Reports: None Oncologic Surgical History: Reports: Other (See Below) Other Oncologic Surgeries/Procedures: hysterectomy Dermatological Surgical History: Reports: None Social & Family History - Family History Family Medical History: Noncontributory Cardiac: Respiratory: GI: Reports: Other (See Below) Neurological: Psychiatric: Hematologic: - Tobacco Use Smoking Status *Q: Never Smoker Years of Tobacco use: 10 Packs/Tins Daily: 0.1 Used Tobacco, but Quit: No Month Tobacco Last Used: june Second Hand Smoke Exposure: No - Caffeine Use Caffeine Use: Reports: None - Alcohol Use Days Per Week of Alcohol Use: 1 Number of Drinks Per Day: 2 Total Drinks Per Week: 2 - Recreational Drug Use Recreational Drug Use: No Drug Use in Last 12 Months: No H&P Review of Systems - Review of Systems: Review Of Systems: See Below General: Reports: Malaise. Denies: Fever, Chills Pulmonary: Denies: Shortness of Breath Cardiovascular: Denies: Chest Pain Gastrointestinal: Denies: Abdominal Pain Skin: Reports: Other (Right buttock small area of scratched skin, no redness around it, no induration) Exam - Exam Exam: See Below - Vital Signs Vital Signs: Last Vital Signs Temp 36.6 C 02/08/18 21:04 Pulse 79 02/08/18 21:04 Resp 18 02/08/18 21:04 BP 168/84 H 02/08/18 21:04 Pulse Ox 98 02/08/18 21:04 Weight: 156.943 kg - Exam General: Alert, Oriented Neck: Supple, Trachea Midline Lungs: Clear to Auscultation, Normal Respiratory Effort Cardiovascular: Regular Rate, Regular Rhythm GI/Abdominal Exam: Normal Bowel Sounds, Soft, Non-Tender, Other (Obese) Extremities: Pedal Edema (Trace bilateral) Skin: Warm, Other (Right buttock small area of scratch ismael. No redness) Neuro Extensive - Mental Status: Alert, Oriented x3, Normal Mood/Affect - Patient Data Result Diagrams: 02/08/18 21:39 02/08/18 21:39 *Q Meaningful Use (ADM) - VTE *Q VTE Criteria *Q: - Stroke *Q Stroke Criteria *Q: - AMI *Q AMI Criteria *Q: - Problem List (1) Hypokalemia SNOMED Code(s): 03065416 ICD Code: E87.6 - HYPOKALEMIA Status: Acute Current Visit: Yes (2) Cellulitis SNOMED Code(s): 915223202 ICD Code: L03.90 - CELLULITIS, UNSPECIFIED Status: Acute Current Visit: Yes (3) Acquired thrombocytopenia SNOMED Code(s): 72785481 ICD Code: D69.59 - OTHER SECONDARY THROMBOCYTOPENIA Status: Acute Current Visit: No Problem List Initiated/Reviewed/Updated: Yes Orders Last 24hrs: Active Orders 24 hr Category Date Time Status Patient Status [ADT] Routine ADT 02/08/18 22:51 Ordered Antiembolic Devices [RC] PER UNIT ROUTINE Care 02/08/18 22:52 Ordered Oxygen Therapy [RC] PRN Care 02/08/18 22:51 Ordered Up With Assistance [RC] ASDIRECTED Care 02/08/18 22:51 Ordered VTE/DVT Education [RC] PER UNIT ROUTINE Care 02/08/18 22:51 Ordered Vital Signs [RC] Q4H Care 02/08/18 22:51 Ordered Regular Diet [DIET] Diet 02/08/18 Breakfast Ordered BASIC METABOLIC PANEL,BMP [CHEM] AM Lab 02/09/18 05:11 Ordered CBC WITH AUTO DIFF [HEME] AM Lab 02/09/18 05:11 Ordered Doxycycline [Vibramycin] Med 02/09/18 09:00 Ordered 100 mg PO BID Furosemide [Lasix] Med 02/09/18 08:00 Ordered 60 mg PO BIDDIURETIC Spironolactone [Aldactone] Med 02/09/18 08:00 Ordered 50 mg PO BIDDIURETIC Vancomycin Pharmacy to Dose [Pharmacy to Dose - Med 02/08/18 23:00 Ordered Vancomycin] 1 dose .XX ASDIRECTED Venlafaxine [Effexor XR] Med 02/09/18 09:00 Ordered 37.5 mg PO DAILY Zolpidem [Ambien] Med 02/08/18 22:51 Ordered 5 mg PO BEDTIME PRN oxyCODONE Med 02/08/18 22:48 Ordered 2.5 mg PO Q8H PRN Antiembolic Hose [OM.PC] Per Unit Routine Oth 02/08/18 22:52 Ordered Resuscitation Status Routine Resus Stat 02/08/18 22:51 Ordered Medication Orders Furosemide (Lasix) 60 mg PO BIDDIURETIC [facility] Non-Formulary Medication (Doxycycline [Vibramycin]) 100 mg PO BID [facility] Oxycodone HCl (Oxycodone) 2.5 mg PO Q8H PRN PRN Reason: Pain (severe 7-10) Sodium Chloride (Saline Flush) 10 ml FLUSH ASDIRECTED PRN PRN Reason: Keep Vein Open Spironolactone (Aldactone) 50 mg PO BIDDIURETIC [facility] Vancomycin HCl (Pharmacy To Dose - Vancomycin) 1 dose .XX ASDIRECTED [facility] Venlafaxine HCl (Effexor Xr) 37.5 mg PO DAILY [facility] Zolpidem Tartrate (Ambien) 5 mg PO BEDTIME PRN PRN Reason: Sleep Assessment/Plan Comment:: The patient is a 37-year-old lady with a history of recurrent cellulitis, MRSA skin infection. In the past her cellulitis was quickly spreading and difficult to treat. She has been on doxycycline prophylactically. She presented with an area of scratch on the buttock she felt that this is similar sensation when cellulitis starts. #1 high risk for cellulitis with skin scratching of the right buttock Obtain blood cultures Will continue doxycycline but increased to therapeutic 100 mg twice a day dose. Start vancomycin #2 thrombocytopenia Chronic monitor #3 hypokalemia We'll replace and recheck in the morning #4 chronic continuous narcotic use and dependency Continue oxycodone, try not to escalate dose #5 DVT prophylaxis will be with SCDs We'll not use heparin or Lovenox due to thrombocytopenia
[2018-02-08] MEDS: Vancomycin 1.5 GM in Sodium Chloride 0.9% 500 ML IV SCH (23:46)
[2018-02-09] MEDS: diphenhydrAMINE 50 MG/ML SDV IVPUSH PRN ×3 (02:32→23:31)
[2018-02-09 07:07] LABS: CHLORIDE,CL 107 mmol/L (101-111); SODIUM,NA 140 mmol/L (135-145)
[2018-02-09] MEDS: Venlafaxine 37.5 MG Cap.ER PO SCH (08:53)
[2018-02-09] MEDS: Furosemide 40 MG Tab PO SCH ×2 (08:53→13:49)
[2018-02-09] MEDS: Doxycycline 100 MG Cap PO SCH ×2 (08:53→23:13)
[2018-02-09] MEDS: Spironolactone 25 MG Tab PO SCH ×2 (08:53→13:50)
[2018-02-09] MEDS: Vancomycin 1.5 GM in Sodium Chloride 0.9% 500 ML IV SCH ×3 (08:54→23:34)
--- NOTE | 2018-02-09 11:01 | PCM.PN ---
- General Info Date of Service: 02/09/18 Admission Dx/Problem (Free Text): Admission Diagnosis/Problem Admission Diagnosis/Problem Cellulitis Subjective Update: No fever overnight, the scratch rios did not change significantly. She does feel a lump under it with associated discomfort. No shortness of breath, no chest pain. Functional Status: Reports: Pain Controlled, Tolerating Diet - Review of Systems General: Denies: Fever Pulmonary: Denies: Shortness of Breath Cardiovascular: Denies: Chest Pain Gastrointestinal: Denies: Abdominal Pain - Patient Data Vitals - Most Recent: Last Vital Signs Temp 36.1 C 02/09/18 07:37 Pulse 79 02/09/18 07:37 Resp 20 02/09/18 07:37 BP 148/83 H 02/09/18 07:37 Pulse Ox 100 02/09/18 07:37 Weight - Most Recent: 151.953 kg I&O - Last 24 Hours: Intake & Output 02/08/18 02/09/18 02/09/18 22:59 06:59 14:59 Intake Total 500 Balance 500 Lab Results Last 24 Hours: Laboratory Results - last 24 hr 02/09/18 02/09/18 Range/Units 06:18 06:18 WBC 3.6 L (5.0-10.0) 10^3/uL RBC 3.91 L (4.2-5.4) 10^6/uL Hgb 12.9 (12.0-16.0) g/dL Hct 37.7 (37.0-47.0) % MCV 96.4 (80-100) fL MCH 33.0 (27.0-34.0) pg MCHC 34.2 (33.0-35.0) g/dL Plt Count 34 L* (150-450) 10^3/uL Neut % (Auto) 71.1 (42.2-75.2) % Lymph % (Auto) 18.6 L (20.5-50.1) % [place] % (Auto) 8.3 H (2-8) % Eos % (Auto) 1.7 (1.0-3.0) % Baso % (Auto) 0.3 (0.0-1.0) % Sodium 140 (135-145) mmol/L Potassium 2.9 L (3.6-5.0) mmol/L Chloride 107 (101-111) mmol/L Carbon Dioxide 29.0 (21.0-31.0) mmol/L Anion Gap 6.9 BUN 9 (7-18) mg/dL Creatinine 0.4 L (0.6-1.3) mg/dL Est Cr Clr Drug Dosing 171.59 mL/min Estimated GFR (MDRD) > 60 Glucose 103 (74-105) mg/dL Calcium 9.5 (8.4-10.2) mg/dl Med Orders - Current: Current Medications Diphenhydramine HCl (Benadryl) 25 mg IVPUSH Q6H PRN PRN Reason: Itching Last Admin: 02/09/18 08:54 Dose: 25 mg Doxycycline Hyclate (Vibramycin) 100 mg PO BID [facility] Last Admin: 02/09/18 08:53 Dose: 100 mg Furosemide (Lasix) 60 mg PO BIDDIURETIC [facility] Last Admin: 02/09/18 08:53 Dose: 60 mg Vancomycin HCl 1.5 gm/ Sodium (Chloride) 500 mls @ 333.333 mls/hr IV Q8H [facility] Last Admin: 02/09/18 08:54 Dose: 200 mls/hr Oxycodone HCl (Oxycodone) 2.5 mg PO Q8H PRN PRN Reason: Pain (severe 7-10) Potassium Chloride (Klor-Con 10) 40 meq PO BIDMEALS [facility] Stop: 02/09/18 18:01 Sodium Chloride (Saline Flush) 10 ml FLUSH ASDIRECTED PRN PRN Reason: Keep Vein Open Spironolactone (Aldactone) 50 mg PO BIDDIURETIC [facility] Last Admin: 02/09/18 08:53 Dose: 50 mg Vancomycin HCl (Pharmacy To Dose - Vancomycin) 1 dose .XX ASDIRECTED [facility] Venlafaxine HCl (Effexor Xr) 37.5 mg PO DAILY [facility] Last Admin: 02/09/18 08:53 Dose: 37.5 mg Zolpidem Tartrate (Ambien) 5 mg PO BEDTIME PRN PRN Reason: Sleep - Exam General: Alert, Oriented Neck: Supple Lungs: Clear to Auscultation, Normal Respiratory Effort Cardiovascular: Regular Rate, Regular Rhythm Skin: Warm, Other (On the right buttock the small scratch did not change significantly, no redness around it, I do not feel an abscess or induration.) - Problem List & Annotations (1) Hypokalemia SNOMED Code(s): 50549107 Code(s): E87.6 - HYPOKALEMIA Status: Acute Current Visit: Yes (2) Cellulitis SNOMED Code(s): 799766577 Code(s): L03.90 - CELLULITIS, UNSPECIFIED Status: Acute Current Visit: Yes (3) Acquired thrombocytopenia SNOMED Code(s): 10740894 Code(s): D69.59 - OTHER SECONDARY THROMBOCYTOPENIA Status: Acute Current Visit: No - Problem List Review Problem List Initiated/Reviewed/Updated: Yes - My Orders Last 24 Hours: My Active Orders 02/08/18 23:30 Vancomycin 1.5 gm Sodium Chloride 0.9% [Normal Saline] 500 ml IV Q8H 02/09/18 02:19 diphenhydrAMINE [Benadryl] 25 mg IVPUSH Q6H PRN 02/09/18 10:00 Potassium Chloride [Klor-Con 10] 40 meq PO BIDMEALS 02/10/18 05:15 BASIC METABOLIC PANEL,BMP [CHEM] AM CBC WITH AUTO DIFF [HEME] AM - Plan Plan:: The patient is a 37-year-old lady with a history of recurrent cellulitis, MRSA skin infection. In the past her cellulitis was quickly spreading and difficult to treat. She has been on doxycycline prophylactically. She presented with an area of scratch on the buttock she felt that this is similar sensation when cellulitis starts. #1 high risk for cellulitis with skin scratching of the right buttock blood cultures: pending Will continue doxycycline but increased to therapeutic 100 mg twice a day dose. continue vancomycin #2 thrombocytopenia Chronic, will monitor #3 hypokalemia We'll replace further and and recheck in the morning #4 chronic continuous narcotic use and dependency Continue oxycodone, try not to escalate dose #5 DVT prophylaxis will be with SCDs We'll not use heparin or Lovenox due to thrombocytopenia
[2018-02-09] MEDS: Potassium Chloride 10 MEQ Tab.ER PO SCH ×2 (11:27→17:46)
[2018-02-09] MEDS ORDERED: Acetaminophen 325 MG Tab PO PRN (15:48)
[2018-02-10 07:36] LABS: CHLORIDE,CL 103 mmol/L (101-111); SODIUM,NA 137 mmol/L (135-145)
[2018-02-10] MEDS: Vancomycin 1.5 GM in Sodium Chloride 0.9% 500 ML IV SCH (07:48)
[2018-02-10 07:50] VITALS: BP 144/85
[2018-02-10] MEDS ORDERED: Potassium Chloride 10 MEQ Tab.ER PO ONE (08:26)
--- NOTE | 2018-02-10 09:39 | PCM.DCSUM1 ---
Discharge Summary - Hospital Course Free Text/Narrative:: The patient is a 37-year-old lady with a history of recurrent cellulitis, MRSA skin infection. In the past her cellulitis was quickly spreading and difficult to treat. She has been on doxycycline prophylactically. She presented with an area of scratch on the buttock she felt that this is similar sensation when cellulitis starts. #1 high risk for cellulitis with skin scratching of the right buttock blood cultures: pending no redness developed, no sign of local or systemic infection Will continue doxycycline at therapeutic rate for a few days but stop vancomycin if no redness developing will decrease doxy to 50 mg bid for prophylaxis #2 thrombocytopenia Chronic, remained stable #3 hypokalemia pt was on lasix, ran out of spironolactone 2 days prior to admission spironolactone resumed, replaced follow as out pt periodically gave a Rx for spironolactone #4 chronic continuous narcotic use and dependency Continue oxycodone, try not to escalate dose - Discharge Data Discharge Date: 02/10/18 Discharge Disposition: Home, Self-Care 01 Condition: Good - Discharge Diagnosis/Problem(s) (1) Hypokalemia SNOMED Code(s): 72829776 ICD Code: E87.6 - HYPOKALEMIA Status: Acute Current Visit: Yes (2) Cellulitis SNOMED Code(s): 289428809 ICD Code: L03.90 - CELLULITIS, UNSPECIFIED Status: Acute Current Visit: Yes (3) Acquired thrombocytopenia SNOMED Code(s): 66891939 ICD Code: D69.59 - OTHER SECONDARY THROMBOCYTOPENIA Status: Acute Current Visit: No - Patient Instructions Diet: Usual Diet as Tolerated Activity: As Tolerated - Discharge Plan Prescriptions/Med Rec: Spironolactone [Aldactone] 50 mg PO BIDDIURETIC #60 tablet Home Medications: Home Meds Venlafaxine [Effexor XR] 37.5 mg PO DAILY 02/12/16 [History] Furosemide [Lasix] 60 mg PO BIDDIURETIC 30 Days tablet 06/13/17 [Rx] oxyCODONE 2.5 mg PO Q8H PRN #10 tablet 08/08/17 [Rx] Doxycycline [Vibramycin] 100 mg PO BID 02/08/18 [History] Spironolactone [Aldactone] 50 mg PO BIDDIURETIC #60 tablet 02/10/18 [Rx] Referrals: PCP,Unobtain [Primary Care Provider] - (dr. Rivera in 3 days) - Discharge Summary/Plan Comment DC Time >30 min.: No - General Info Date of Service: 02/10/18 Admission Dx/Problem (Free Text: Admission Diagnosis/Problem Admission Diagnosis/Problem Cellulitis Subjective Update: No fever overnight, the scratch rios did not change significantly. Another small ?scratch noted, No shortness of breath, no chest pain. - Review of Systems General: Denies: Fever Pulmonary: Denies: Shortness of Breath Cardiovascular: Denies: Chest Pain Gastrointestinal: Denies: Abdominal Pain Neurological: Denies: Confusion - Patient Data Vitals - Most Recent: Last Vital Signs Temp 36.2 C 02/10/18 07:49 Pulse 71 02/10/18 07:49 Resp 20 02/10/18 07:49 BP 144/85 H 02/10/18 07:49 Pulse Ox 100 02/10/18 07:49 Weight - Most Recent: 151.953 kg I&O - Last 24 hours: Intake & Output 02/09/18 02/10/18 02/10/18 22:59 06:59 14:59 Intake Total 1174 256 Balance 1174 256 Lab Results - Last 24 hrs: Laboratory Results - last 24 hr 02/10/18 02/10/18 02/10/18 Range/Units 07:08 07:08 07:08 WBC 3.4 L (5.0-10.0) 10^3/uL RBC 4.10 L (4.2-5.4) 10^6/uL Hgb 13.6 (12.0-16.0) g/dL Hct 39.6 (37.0-47.0) % MCV 96.6 (80-100) fL MCH 33.2 (27.0-34.0) pg MCHC 34.3 (33.0-35.0) g/dL Plt Count 34 L* (150-450) 10^3/uL Neut % (Auto) 72.4 (42.2-75.2) % Lymph % (Auto) 17.2 L (20.5-50.1) % [place] % (Auto) 8.7 H (2-8) % Eos % (Auto) 1.7 (1.0-3.0) % Baso % (Auto) 0.0 (0.0-1.0) % Sodium 137 (135-145) mmol/L Potassium 3.5 L (3.6-5.0) mmol/L Chloride 103 (101-111) mmol/L Carbon Dioxide 27.0 (21.0-31.0) mmol/L Anion Gap 10.5 BUN 10 (7-18) mg/dL Creatinine 0.6 (0.6-1.3) mg/dL Est Cr Clr Drug Dosing 114.40 mL/min Estimated GFR (MDRD) > 60 Glucose 97 (74-105) mg/dL Calcium 9.2 (8.4-10.2) mg/dl Vancomycin Trough 21.3 H (10-15) ug/ml Med Orders - Current: Current Medications Acetaminophen (Tylenol) 650 mg PO Q6H PRN PRN Reason: pain or fever Last Admin: 02/09/18 16:09 Dose: 650 mg Diphenhydramine HCl (Benadryl) 25 mg IVPUSH Q6H PRN PRN Reason: Itching Last Admin: 02/09/18 23:31 Dose: 25 mg Doxycycline Hyclate (Vibramycin) [address] [facility] Last Admin: 02/09/18 23:13 Dose: 100 mg Furosemide (Lasix) [address] [facility] Last Admin: 02/09/18 13:49 Dose: 60 mg Vancomycin HCl 1.25 gm/ Sodium (Chloride) 250 mls @ 166.667 mls/hr IV Q8H [facility] Oxycodone HCl (Oxycodone) 2.5 mg PO Q8H PRN PRN Reason: Pain (severe 7-10) Sodium Chloride (Saline Flush) 10 ml FLUSH ASDIRECTED PRN PRN Reason: Keep Vein Open Spironolactone (Aldactone) [address] [facility] Last Admin: 02/09/18 13:50 Dose: 50 mg Vancomycin HCl (Pharmacy To Dose - Vancomycin) [address] [facility] Venlafaxine HCl (Effexor Xr) 37.[address] [facility] Last Admin: 02/09/18 08:53 Dose: 37.5 mg Zolpidem Tartrate (Ambien) 5 mg PO BEDTIME PRN PRN Reason: Sleep Discontinued Medications Vancomycin HCl 1.5 gm/ Sodium (Chloride) 500 mls @ 333.333 mls/hr IV Q8H [facility] Last Admin: 02/10/18 07:48 Dose: Not Given Vancomycin HCl 1.25 gm/ Sodium (Chloride) 500 mls @ 333.333 mls/hr IV Q8H [facility] Potassium Chloride (Klor-Con 10) 40 meq PO BIDMEALS ALEXANDRA Stop: 02/09/18 18:01 Last Admin: 02/09/18 17:46 Dose: 40 meq Potassium Chloride (Klor-Con 10) 40 meq PO ONETIME ONE Stop: 02/10/18 08:27 - Exam General: Reports: Alert, Oriented Neck: Reports: Supple Lungs: Reports: Clear to Auscultation, Normal Respiratory Effort Cardiovascular: Reports: Regular Rate, Regular Rhythm GI/Abdominal Exam: Normal Bowel Sounds, Soft, Non-Tender, Other (morbid obesity) Extremities: No Pedal Edema Skin: Reports: Warm, Dry, Other (r buttock scratch ismael, a little above a 1 mm small ulcerative lesion) Neurological: Reports: No New Focal Deficit Psy/Mental Status: Reports: Alert, Normal Affect, Normal Mood *Q Meaningful Use (DIS) - VTE *Q VTE Criteria *Q: - Stroke *Q Stroke Criteria *Q: - AMI *Q AMI Criteria *Q:
[2018-02-10] MEDS: Venlafaxine 37.5 MG Cap.ER PO SCH (09:44)
[2018-02-10] MEDS: Furosemide 40 MG Tab PO SCH (09:44)
[2018-02-10] MEDS: Spironolactone 25 MG Tab PO SCH (09:45)
[2018-02-10] MEDS: Doxycycline 100 MG Cap PO SCH (09:45)
[2018-02-10] MEDS ORDERED: Vancomycin 1.25 GM in Sodium Chloride 0.9% 500 ML IV SCH (16:00)
== END 2018-02-10 11:10 | disposition home or self-care (01) | DRG 383 ==
LOC: DL.ED 20:04 → UNDOADMIN 22:24 → DL.MS 22:24
PROVIDERS: ADMIT Internal Medicine; ATTEND Internal Medicine
DX: L03.317 Cellulitis of buttock (principal); E87.6 Hypokalemia; D69.59 Other secondary thrombocytopenia; I10 Essential (primary) hypertension; G47.30 Sleep apnea, unspecified; K74.60 Unspecified cirrhosis of liver; K76.6 Portal hypertension; K76.0 Fatty (change of) liver, not elsewhere classified; F41.9 Anxiety disorder, unspecified; F32.9 Major depressive disorder, single episode, unspecified; Z79.899 Other long term (current) drug therapy; Z79.891 Long term (current) use of opiate analgesic; Z86.14 Personal history of Methicillin resistant Staphylococcus aureus infection; Z86.718 Personal history of other venous thrombosis and embolism
CPT/HCPCS: 36415; 80048; 80053; 80202; 83605; 85025; 87040; 99283; A9270-GY; J1200; J3370; J7040

== ENCOUNTER 2018-03-03 20:15 | Emergency (ER) | payer BC, OTHER ==
[2018-03-03] MEDS ORDERED: Sodium Chloride 0.9% 1,000 ML IV ONE (20:50)
--- NOTE | 2018-03-03 21:00 | EDM.PDOC ---
ED HPI GENERAL MEDICAL PROBLEM - General Chief Complaint: ENT Problem Stated Complaint: [id number] STREP? Time Seen by Provider: 03/03/18 20:30 Source of Information: Reports: Patient, Old Records, RN, RN Notes Reviewed History Limitations: Reports: No Limitations - History of Present Illness INITIAL COMMENTS - FREE TEXT/NARRATIVE: Jacy is a 37 yo F who presents to the ED with a 3 day history of cough and cold sx. She reports that she has had a fever at home ranging from 100-103. She reports that her cough is productive with green sputum. She reports that she has been coughing so hard that she vomits. She reports shortness of breath especially with with activity. She reports generalizes body aches and fatigue. She reports that her son has similar symptoms. She has been taking Jaycee-selzer cold without relief. She reports that she has been using half the dose due to her liver problems. Onset: Gradual Onset Date: 02/28/18 Location: Reports: Head, Chest Quality: Reports: Dull Severity: Mild Improves with: Reports: Medication, Rest Worsens with: Reports: Movement Associated Symptoms: Reports: cough w sputum, Fever/Chills, Nausea/Vomiting Throat Pain Score (Numeric/FACES): 6 - Related Data Allergies Allergy/AdvReac Type Severity Reaction Status Date / Time cephalexin monohydrate Allergy Severe Hives Verified 03/03/18 20:34 [From Keflex] adhesive Allergy Intermediate Hives Verified 03/03/18 20:34 hydrocodone Allergy Mild Nausea and Verified 03/03/18 20:34 Vomiting erythromycin base AdvReac Severe Nausea and Verified 03/03/18 20:34 [Erythromycin Base] Vomiting Home Meds: Home Meds Venlafaxine [Effexor XR] 37.5 mg PO DAILY 02/12/16 [History] Furosemide [Lasix] 60 mg PO BIDDIURETIC 30 Days tablet 06/13/17 [Rx] oxyCODONE 2.5 mg PO Q8H PRN #10 tablet 08/08/17 [Rx] Doxycycline [Vibramycin] 100 mg PO BID 02/08/18 [History] Spironolactone [Aldactone] 50 mg PO BIDDIURETIC #60 tablet 02/10/18 [Rx] Past Medical History HEENT History: Reports: Impaired Vision, Other (See Below) Other HEENT History: wears glasses Cardiovascular History: Reports: Blood Clots/VTE/DVT, Hypertension, Other (See Below) Other Cardiovascular History: edema BLE Respiratory History: Reports: Sleep Apnea Gastrointestinal History: Reports: Cirrhosis, Other (See Below) Other Gastrointestinal History: Non-alcoholic fatty liver disease, PORTAL HYPERTENSION Genitourinary History: Reports: Acute Renal Failure [employer]ER History: Reports: Endometriosis, Other (See Below) Other OB/BYN History: PRE CANCEROUS CERVICAL CELLS, RESULTED IN PARTIAL HYSTERECTOMY Musculoskeletal History: Reports: None Neurological History: Reports: None Psychiatric History: Reports: Anxiety, Depression Endocrine/Metabolic History: Reports: Obesity/BMI 30+ Hematologic History: Reports: B12 Deficiency, Blood Transfusion(s), Idiopathic Thrombocytopenia, Other (See Below) Other Hematologic History: VIT D DEFICIENCY,low platlets count Immunologic History: Reports: None Oncologic (Cancer) History: Reports: Other (See Below) Other Oncologic History: PRECANCEROUS CELLS UTERINE Dermatologic History: Reports: Chronic Cellulitis, Psoriasis Other Dermatologic History: RLE CELLULITIS - Infectious Disease History Infectious Disease History: Reports: Chicken Pox, MRSA - Past Surgical History HEENT Surgical History: Reports: Myringotomy w Tube(s) Respiratory Surgical History: Reports: None GI Surgical History: Reports: Bariatric Procedure, Colonoscopy, EGD Female Surgical History: Reports: Hysterectomy Endocrine Surgical History: Reports: None Neurological Surgical History: Reports: None Musculoskeletal Surgical History: Reports: None Oncologic Surgical History: Reports: Other (See Below) Other Oncologic Surgeries/Procedures: hysterectomy Dermatological Surgical History: Reports: None Social & Family History - Family History Family Medical History: Noncontributory Cardiac: Respiratory: GI: Reports: Other (See Below) Neurological: Psychiatric: Hematologic: - Tobacco Use Smoking Status *Q: Never Smoker Years of Tobacco use: 10 Packs/Tins Daily: 0.1 Used Tobacco, but Quit: No Month/Year Tobacco Last Used: june Second Hand Smoke Exposure: No - Caffeine Use Caffeine Use: Reports: Soda - Alcohol Use Days Per Week of Alcohol Use: 1 Number of Drinks Per Day: 2 Total Drinks Per Week: 2 - Recreational Drug Use Recreational Drug Use: No Drug Use in Last 12 Months: No ED ROS GENERAL - Review of Systems Review Of Systems: ROS reveals no pertinent complaints other than HPI. ED EXAM, DIZZINESS - Physical Exam Exam: See Below Exam Limited By: No Limitations General Appearance: Alert, WD/WN, No Apparent Distress Eye Exam: Bilateral Eye: PERRL Ears: Normal External Exam, Normal Canal, Hearing Grossly Normal, Normal TMs Nose: Normal Inspection, Normal Mucosa, No Blood Throat/Mouth: Normal Lips, Normal Teeth, Normal Gums, Normal Voice, No Airway Compromise, Other (Mild erythemia noted to back of throat) Head Exam: Atraumatic, Normocephalic, Sinus Tenderness (Malliary and frontal sinus tenderness on palpation) Neck: Normal Inspection, Supple, Non-Tender, Full Range of Motion Respiratory/Chest: No Respiratory Distress, Lungs Clear, Normal Breath Sounds, No Accessory Muscle Use, Chest Non-Tender Cardiovascular: Normal Peripheral Pulses, Regular Rate, Rhythm, No Edema, No Gallop, No JVD, No Murmur, No Rub GI/Abdominal: Normal Bowel Sounds, Soft, Non-Tender, No Organomegaly, No Distention, No Abnormal Bruit, No Mass (Female) Exam: Deferred Rectal (Female) Exam: Deferred Neurological: Alert, Normal Mood/Affect, Normal Dorsiflexion, CN II-XII Intact, Normal Plantar Flexion, Normal Gait, Normal Reflexes, No Motor/Sensory Deficits , Oriented x 3 Back Exam: Normal Inspection, Full Range of Motion, NT Extremities: Normal Inspection, Normal Range of Motion, Non-Tender, No Pedal Edema, Normal Capillary Refill Psychiatric: Normal Affect, Normal Mood Skin Exam: Warm, Dry, Intact, Normal Color, No Rash Course - Vital Signs Last Recorded V/S: Last Vital Signs Temp 97.7 F 03/03/18 20:26 Pulse 92 03/03/18 20:26 Resp 23 H 03/03/18 20:26 BP 168/106 H 03/03/18 20:26 Pulse Ox 98 03/03/18 20:26 - Orders/Labs/Meds Orders: Active Orders 24 hr Category Date Time Status CULTURE STREP A CONFIRMATION [] Stat Lab 03/03/18 20:39 Results INFLUENZA A+B AG SCREEN [] Stat Lab 03/03/18 20:39 Ordered STREP SCRN A RAPID W CULT CONF [] Stat Lab 03/03/18 20:39 Ordered Labs: Laboratory Tests 03/03/18 03/03/18 Range/Units 20:55 20:55 WBC 5.6 (5.0-10.0) 10^3/uL RBC 4.20 (4.2-5.4) 10^6/uL Hgb 14.1 (12.0-16.0) g/dL Hct 40.4 (37.0-47.0) % MCV 96.2 (80-100) fL MCH 33.6 (27.0-34.0) pg MCHC 34.9 (33.0-35.0) g/dL Plt Count 37 L* (150-450) 10^3/uL Neut % (Auto) 77.6 H (42.2-75.2) % Lymph % (Auto) 11.5 L (20.5-50.1) % [place] % (Auto) 9.3 H (2-8) % Eos % (Auto) 1.4 (1.0-3.0) % Baso % (Auto) 0.2 (0.0-1.0) % Sodium 137 (135-145) mmol/L Potassium 3.8 (3.6-5.0) mmol/L Chloride 106 (101-111) mmol/L Carbon Dioxide 24.0 (21.0-31.0) mmol/L Anion Gap 10.8 BUN 7 (7-18) mg/dL Creatinine 0.6 (0.6-1.3) mg/dL Est Cr Clr Drug Dosing 114.40 mL/min Estimated GFR (MDRD) > 60 BUN/Creatinine Ratio 11.66 Glucose 152 H (74-105) mg/dL Calcium 9.7 (8.4-10.2) mg/dl Total Bilirubin 2.2 H (0.2-1.0) mg/dL AST 49 H (10-42) IU/L ALT 25 (10-60) IU/L Alkaline Phosphatase 124 H (42-121) IU/L Total Protein 6.0 L (6.7-8.2) g/dl Albumin 2.9 L (3.2-5.5) g/dl Globulin 3.1 Albumin/Globulin Ratio 0.94 Meds: Medications Discontinued Medications Generic Name Dose Route Start Last Admin Trade Name Freq PRN Reason Stop Dose Admin Sodium Chloride 1,000 mls @ 999 mls/hr 03/03/18 20:50 03/03/18 21:01 Normal Saline IV 03/03/18 21:50 999 mls/hr .BOLUS ONE Administration Departure - Departure Time of Disposition: 22:27 Disposition: Home, Self-Care 01 Condition: Good Clinical Impression: Upper respiratory infection Qualifiers: URI type: unspecified viral URI Qualified Code(s): J06.9 - Acute upper respiratory infection, unspecified - Discharge Information Instructions: Viral Respiratory Infection, [id number]-[id number] Forms: ED Department Discharge Care Plan Goals: You symptoms seem viral in nature. Push fluids. Over the counter acetaminophen as needed for discomfort. Return to the clinic or ED if you are experiencing increased shortness of breath, chest pain, or other concerns. Patient verbalizes understanding. Denies additional questions or concerns at this time.
[2018-03-03 21:21] LABS: CHLORIDE,CL 106 mmol/L (101-111); SODIUM,NA 137 mmol/L (135-145)
[2018-03-03 22:40] VITALS: BP 157/95
== END 2018-03-03 22:39 | disposition home or self-care (01) ==
LOC: DL.ED 20:15
DX: J06.9 Acute upper respiratory infection, unspecified (principal); Z88.1 Allergy status to other antibiotic agents
CPT/HCPCS: 36415; 71046; 80053; 85025; 87081; 87430; 87804; 96360; 99283; J7030

== ENCOUNTER 2018-03-18 07:49 | Emergency (ER) | payer OTHER, BC ==
[2018-03-18 08:02] VITALS: BP 143/80
[2018-03-18] MEDS ORDERED: Sodium Chloride 0.9% 10 ML Syringe FLUSH PRN (08:05)
[2018-03-18] MEDS ORDERED: Ondansetron 4 MG/2 ML SDV IV ONE (08:06)
[2018-03-18] MEDS ORDERED: Sodium Chloride 0.9% 1,000 ML IV ONE (08:06)
--- NOTE | 2018-03-18 08:13 | EDM.PDOC ---
ED HPI GENERAL MEDICAL PROBLEM - General Chief Complaint: Gastrointestinal Problem Stated Complaint: [id number] FLU SINCE THU Time Seen by Provider: 03/18/18 08:00 Source of Information: Reports: Patient, RN, RN Notes Reviewed History Limitations: Reports: No Limitations - History of Present Illness INITIAL COMMENTS - FREE TEXT/NARRATIVE: Pt presents to the ER with c/o N/V/D since Thursday (03/16/18). She states she has not been able to keep her medications down since Thursday. She states approximately 5 emesis daily, and approximately 6-7 diarrhea BM daily. Patient states she feels she has had fever and chills, and a cough with some mucus production. She denies chest pains or SOB. Onset: Gradual Onset Date: 03/16/18 - Related Data Allergies Allergy/AdvReac Type Severity Reaction Status Date / Time cephalexin monohydrate Allergy Severe Hives Verified 03/18/18 07:52 [From Keflex] adhesive Allergy Intermediate Hives Verified 03/18/18 07:52 hydrocodone Allergy Mild Nausea and Verified 03/18/18 07:52 Vomiting erythromycin base AdvReac Severe Nausea and Verified 03/18/18 07:52 [Erythromycin Base] Vomiting Home Meds: Home Meds Venlafaxine [Effexor XR] 37.5 mg PO DAILY 02/12/16 [History] Furosemide [Lasix] 60 mg PO BIDDIURETIC 30 Days tablet 06/13/17 [Rx] oxyCODONE 2.5 mg PO Q8H PRN #10 tablet 08/08/17 [Rx] Doxycycline [Vibramycin] 100 mg PO BID 02/08/18 [History] Spironolactone [Aldactone] 50 mg PO BIDDIURETIC #60 tablet 02/10/18 [Rx] Past Medical History HEENT History: Reports: Impaired Vision, Other (See Below) Other HEENT History: wears glasses Cardiovascular History: Reports: Blood Clots/VTE/DVT, Hypertension, Other (See Below) Other Cardiovascular History: edema BLE Respiratory History: Reports: Sleep Apnea Gastrointestinal History: Reports: Cirrhosis, Other (See Below) Other Gastrointestinal History: Non-alcoholic fatty liver disease, PORTAL HYPERTENSION Genitourinary History: Reports: Acute Renal Failure [employer] History: Reports: Endometriosis, Other (See Below) Other OB/BYN History: PRE CANCEROUS CERVICAL CELLS, RESULTED IN PARTIAL HYSTERECTOMY Musculoskeletal History: Reports: None Neurological History: Reports: None Psychiatric History: Reports: Anxiety, Depression Endocrine/Metabolic History: Reports: Obesity/BMI 30+ Hematologic History: Reports: B12 Deficiency, Blood Transfusion(s), Idiopathic Thrombocytopenia, Other (See Below) Other Hematologic History: VIT D DEFICIENCY,low platlets count Immunologic History: Reports: None Oncologic (Cancer) History: Reports: Other (See Below) Other Oncologic History: PRECANCEROUS CELLS UTERINE Dermatologic History: Reports: Chronic Cellulitis, Psoriasis Other Dermatologic History: RLE CELLULITIS - Infectious Disease History Infectious Disease History: Reports: Chicken Pox, MRSA - Past Surgical History HEENT Surgical History: Reports: Myringotomy w Tube(s) Respiratory Surgical History: Reports: None GI Surgical History: Reports: Bariatric Procedure, Colonoscopy, EGD Female Surgical History: Reports: Hysterectomy Endocrine Surgical History: Reports: None Neurological Surgical History: Reports: None Musculoskeletal Surgical History: Reports: None Oncologic Surgical History: Reports: Other (See Below) Other Oncologic Surgeries/Procedures: hysterectomy Dermatological Surgical History: Reports: None Social & Family History - Family History Family Medical History: Noncontributory Cardiac: Respiratory: GI: Reports: Other (See Below) Neurological: Psychiatric: Hematologic: - Tobacco Use Smoking Status *Q: Unknown Ever Smoked Years of Tobacco use: 10 Packs/Tins Daily: 0.1 Used Tobacco, but Quit: No Month/Year Tobacco Last Used: june Second Hand Smoke Exposure: No - Caffeine Use Caffeine Use: Reports: None - Alcohol Use Days Per Week of Alcohol Use: 1 Number of Drinks Per Day: 2 Total Drinks Per Week: 2 - Recreational Drug Use Recreational Drug Use: No Drug Use in Last 12 Months: No ED ROS GENERAL - Review of Systems Review Of Systems: ROS reveals no pertinent complaints other than HPI. ED EXAM, GI/ABD - Physical Exam Exam: See Below Exam Limited By: No Limitations General Appearance: Alert, WD/WN, No Apparent Distress Eyes: Bilateral: Normal Appearance, EOMI Ears: Normal External Exam, Hearing Grossly Normal Nose: Normal Inspection Throat/Mouth: Normal Inspection, Normal Voice, No Airway Compromise Head: Atraumatic, Normocephalic Neck: Normal Inspection, Supple, Non-Tender, Full Range of Motion Respiratory/Chest: No Respiratory Distress, Lungs Clear, Normal Breath Sounds, No Accessory Muscle Use, Chest Non-Tender Cardiovascular: Normal Peripheral Pulses, Regular Rate, Rhythm, No Edema, No Gallop, No JVD, No Murmur, No Rub GI/Abdominal Exam: Normal Bowel Sounds, Soft, Tender (Female) Exam: Deferred Rectal (Female) Exam: Deferred Back Exam: Normal Inspection, Full Range of Motion Extremities: Normal Inspection, Normal Range of Motion, Non-Tender, No Pedal Edema, Normal Capillary Refill Neurological: Alert, Oriented, CN II-XII Intact, Normal Cognition, Normal Gait, Normal Reflexes, No Motor/Sensory Deficits Psychiatric: Normal Affect, Normal Mood Skin Exam: Warm, Dry, Intact, Normal Color, No Rash Lymphatic: No Adenopathy Course - Vital Signs Last Recorded V/S: Last Vital Signs Temp 96.2 F 03/18/18 08:01 Pulse 81 03/18/18 08:01 Resp 20 03/18/18 08:01 BP 143/80 H 03/18/18 08:01 Pulse Ox 96 03/18/18 08:01 - Orders/Labs/Meds Labs: Laboratory Tests 03/18/18 03/18/18 Range/Units 08:16 08:16 WBC 4.7 L (5.0-10.0) 10^3/uL RBC 4.41 (4.2-5.4) 10^6/uL Hgb 14.5 (12.0-16.0) g/dL Hct 42.7 (37.0-47.0) % MCV 96.8 (80-100) fL MCH 32.9 (27.0-34.0) pg MCHC 34.0 (33.0-35.0) g/dL Plt Count 35 L* (150-450) 10^3/uL Neut % (Auto) 73.7 (42.2-75.2) % Lymph % (Auto) 13.8 L (20.5-50.1) % [place] % (Auto) 10.0 H (2-8) % Eos % (Auto) 2.3 (1.0-3.0) % Baso % (Auto) 0.2 (0.0-1.0) % Sodium 137 (135-145) mmol/L Potassium 3.3 L (3.6-5.0) mmol/L Chloride 104 (101-111) mmol/L Carbon Dioxide 25.0 (21.0-31.0) mmol/L Anion Gap 11.3 BUN 9 (7-18) mg/dL Creatinine 0.6 (0.6-1.3) mg/dL Est Cr Clr Drug Dosing 114.40 mL/min Estimated GFR (MDRD) > 60 BUN/Creatinine Ratio 15.00 Glucose 99 (74-105) mg/dL Calcium 9.4 (8.4-10.2) mg/dl Total Bilirubin 3.1 H (0.2-1.0) mg/dL AST 79 H (10-42) IU/L ALT 35 (10-60) IU/L Alkaline Phosphatase 114 (42-121) IU/L Total Protein 6.1 L (6.7-8.2) g/dl Albumin 3.0 L (3.2-5.5) g/dl Globulin 3.1 Albumin/Globulin Ratio 0.97 Lipase 25 (22-51) U/L Meds: Medications Discontinued Medications Generic Name Dose Route Start Last Admin Trade Name Freq PRN Reason Stop Dose Admin Sodium Chloride 1,000 mls @ 999 mls/hr 03/18/18 08:06 03/18/18 08:16 Normal Saline IV 03/18/18 09:06 999 mls/hr .BOLUS ONE Administration Ondansetron HCl 4 mg 03/18/18 08:06 03/18/18 08:18 Zofran IV 03/18/18 08:07 4 mg ONETIME ONE Administration Sodium Chloride 10 ml 03/18/18 08:05 03/18/18 08:17 Saline Flush FLUSH 10 ml ASDIRECTED PRN Administration Keep Vein Open Departure - Departure Time of Disposition: 09:14 Disposition: Home, Self-Care 01 Condition: Fair Clinical Impression: Gastroenteritis - Discharge Information Instructions: Viral Gastroenteritis, Adult, [id number], Food Choices to Help Relieve Diarrhea, Adult, Clostridium Difficile Infection, [id number], Nausea and Vomiting, Adult, [id number], Dehydration, Adult, [id number], Diarrhea, Adult, [id number] Forms: ED Department Discharge Additional Instructions: Use Imodium or generic like as directed for diarrhea RX: Zofran Small amounts of fluid frequently Follow up with your primary care facility
[2018-03-18 08:41] LABS: ANION GAP 11.3; CHLORIDE,CL 104 mmol/L (101-111); SODIUM,NA 137 mmol/L (135-145)
== END 2018-03-18 09:30 | disposition home or self-care (01) ==
LOC: DL.ED 07:49
DX: K52.9 Noninfective gastroenteritis and colitis, unspecified (principal); I10 Essential (primary) hypertension; E66.9 Obesity, unspecified; Z79.899 Other long term (current) drug therapy; Z88.1 Allergy status to other antibiotic agents; Z91.09 Other allergy status, other than to drugs and biological substances; Z88.5 Allergy status to narcotic agent
CPT/HCPCS: 36415; 80053; 83690; 85025; 96361; 96374; 99283; J2405; J7030; J7050